=== PATIENT | female | born 1930 | race Caucasian/White ===

== ENCOUNTER 2017-08-19 16:00 | Observation (INO) ==
[2017-08-19] MEDS ORDERED: 0.9 % Sodium Chloride 1,000 ML IVC ONE (16:22)
--- NOTE | 2017-08-19 17:08 | Emergency Department Note ---
Disposition Clinical Impression: Confusion Cellulitis Qualifiers: Site of cellulitis: extremity Site of cellulitis of extremity: lower extremity Laterality: right Qualified Code(s): L03.115 - Cellulitis of right lower limb UTI (urinary tract infection) Qualifiers: Urinary tract infection type: site unspecified Hematuria presence: without hematuria Qualified Code(s): N39.0 - Urinary tract infection, site not specified Disposition: Admitted As Inpatient Condition: Good General Adult HPI - General Chief complaint: ED Altered Mental Status Stated complaint: Altered Source: EMS Limitations: altered mental status Nursing Notes Reviewed: Yes Vital Signs Reviewed: Yes - History of Present Illness HPI Narrative: Patient presents for evaluation from [facility]. Patient was started on antibiotics yesterday for cellulitis. Today the patient had an episode where she looked really pale and was staring off into space. Patient had reported low blood pressure prior to arrival. The patient has been more weak and fatigued than previous. She states that she has had some mild lower abdominal discomfort. She has a red and erythematous right lower extremity from the foot to the mid huitron. She denies chest pain or shortness of breath. Denies fever. Pain Scale: 0 - Related Data Allergies Allergy/AdvReac Type Severity Reaction Status Date / Time Sulfa (Sulfonamide Allergy Hives Verified 08/19/17 16:20 Antibiotics) Review of Systems: CONSTITUTIONAL: No weight loss, fever, chills, weakness or fatigue. HEENT: Eyes: No visual changes. Ears, Nose, Throat: No hearing loss, difficulty talking or unable to swallow. SKIN: cellulitis CARDIOVASCULAR: No chest pain, chest pressure or chest discomfort. No palpitations or edema. RESPIRATORY: No shortness of breath, cough or sputum. GASTROINTESTINAL: Lower abdominal pain No nausea or vomiting.. GENITOURINARY: No burning on urination or hematuria. NEUROLOGICAL: No headache, dizziness, syncope, paralysis, ataxia, numbness or tingling in the extremities. No change in bowel or bladder control. MUSCULOSKELETAL: No muscle pain, back pain, joint pain or stiffness. 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 PROCESSING MACHINE HELPER history - Social History Smoking Status: Never smoker Smokeless Tobacco Status: No Alcohol use: Reports: none Drug use: Reports: none Physical Exam General: Confusion and fatigue Head: Normocephalic Atraumatic Eyes: PERRL, EOMI; extropion ENT: Airway patent, no stridor Neck: supple, no meningismus Chest: Lungs clear to auscultation bilateral Cardiac: Regular rate and rhythm, no murmurs, rubs or gallops Abdomen: soft, nontender, nondistended; no guarding, rebound, or tenderness to percussion Musculoskeletal: Calves symmetric, nontender, no palpable cord Skin: No rash, normal skin tone Neuro: Awake and alert. Oriented to person but not place or time. - General Limitations: altered mental status General appearance: alert, in no apparent distress Course Course Narrative: Patient had DVT study at [facility] that was reportedly negative for DVT. Mildly elevated white count. Cellulitis of the right lower extremity. Concern for UTI. Vancomycin and ceftriaxone given. Blood cultures and urine culture pending. - Consultations Consultation #1: Discussed with hospitalist. Patient accepted for admission. Vital Signs Temperature 97.6 F 08/19/17 16:09 Pulse Rate 61 08/19/17 16:09 Respiratory Rate 16 08/19/17 16:09 Blood Pressure 103/59 08/19/17 16:09 O2 Sat by Pulse Oximetry 100 08/19/17 16:09 Temperature 97.6 F 08/19/17 16:09 Pulse Rate 61 08/19/17 16:09 Respiratory Rate 16 08/19/17 16:09 Blood Pressure 103/59 08/19/17 16:09 O2 Sat by Pulse Oximetry 100 08/19/17 16:09 Oxygen Delivery Oxygen Delivery Room Air Medical Decision Making - Medical Records Medical records reviewed: Yes I reviewed the patient's medical records. - Lab Data Lab results reviewed: Yes I reviewed the patient's lab results. Result diagrams: 08/19/17 16:57 08/19/17 16:57 Lab Results 08/19/17 08/19/17 08/19/17 Range/Units 16:57 16:57 16:57 WBC 11.7 H (4.3-11.1) K/mcL RBC 4.17 (3.82-4.97) M/mcL Hgb 14.5 (11.5-15.4) g/dL Hct 40.9 (35.3-44.9) % MCV 98.1 (83.0-100.0) fL MCH 34.8 H (28.0-33.3) pg MCHC 35.5 (31.6-35.5) g/dL RDW 14.7 H (11.5-14.5) % Plt Count 189 (140-400) K/mcL MPV 11.0 (9.4-12.4) fL Immature Gran % 0.6 (0-4) % Seg Neutrophils % 68.3 % Lymphocytes % 21.7 % Monocytes % 8.8 % Eosinophils % 0.3 % Basophils % 0.3 % Neutrophils # 8.0 (1.6-8.9) K/mcL Lymphocytes # 2.5 (0.6-4.6) K/mcL Monocytes # 1.0 (0.0-1.3) K/mcL Eosinophils # 0.0 (0.0-0.6) K/mcL Basophils # 0.0 (0.0-0.2) K/mcL Sodium 141 (136-145) mEq/L Potassium 4.4 (3.5-5.1) mEq/L Chloride 104 (98-107) mEq/L Carbon Dioxide 27 (23-29) mEq/L BUN 33 H (8-23) mg/dL Creatinine 1.79 H (0.60-1.20) mg/dL Est GFR ( Amer) 33 L (> 60) Est GFR (Non-Af Amer) 27 L (> 60) BUN/Creatinine Ratio 18 (6-26) Glucose 142 H (70-105) mg/dL Calculated Osmolality 302 H (280-300) Lactic Acid 2.2 (0.5-2.2) mmol/L Calcium 9.9 (8.6-10.3) mg/dL Total Bilirubin 0.8 (0.3-1.0) mg/dL AST 18 (13-39) Units/L ALT 15 (7-52) Units/L Alkaline Phosphatase 43 (34-104) Units/L Troponin I < 0.03 (< 0.04) ng/mL Serum Total Protein 7.0 (6.4-8.9) g/dL Albumin 3.8 (3.5-5.7) g/dL Globulin 3.2 (2.4-3.5) g/dL Albumin/Globulin Ratio 1.2 (1.1-2.2) Urine Color (Yellow) Urine Clarity (Clear) Urine pH (5.0-8.0) pH Units Ur Specific [place] (1.010-1.025) Urine Protein (Neg-Trace) mg/dL Urine Glucose (UA) (Normal) mg/dL Urine Ketones (Negative) mg/dL Urine Blood (Negative) Urine Nitrite (Negative) Urine Bilirubin (Negative) Urine Urobilinogen (Normal) mg/dL Ur Leukocyte Esterase (Negative) Urine Microscopic RBC (0-3) per hpf Urine Microscopic WBC (0-3) per hpf Ur Squamous Epith Cells (None-Few) per lpf Urine Bacteria (None-Few) per hpf Hyaline Casts (None-Few) per lpf Ur Culture Indicated? (NO) 08/19/17 Range/Units 17:40 WBC (4.3-11.1) K/mcL RBC (3.82-4.97) M/mcL Hgb (11.5-15.4) g/dL Hct (35.3-44.9) % MCV (83.0-100.0) fL MCH (28.0-33.3) pg MCHC (31.6-35.5) g/dL RDW (11.5-14.5) % Plt Count (140-400) K/mcL MPV (9.4-12.4) fL Immature Gran % (0-4) % Seg Neutrophils % % Lymphocytes % % Monocytes % % Eosinophils % % Basophils % % Neutrophils # (1.6-8.9) K/mcL Lymphocytes # (0.6-4.6) K/mcL Monocytes # (0.0-1.3) K/mcL Eosinophils # (0.0-0.6) K/mcL Basophils # (0.0-0.2) K/mcL Sodium (136-145) mEq/L Potassium (3.5-5.1) mEq/L Chloride (98-107) mEq/L Carbon Dioxide (23-29) mEq/L BUN (8-23) mg/dL Creatinine (0.60-1.20) mg/dL Est GFR ( Amer) (> 60) Est GFR (Non-Af Amer) (> 60) BUN/Creatinine Ratio (6-26) Glucose (70-105) mg/dL Calculated Osmolality (280-300) Lactic Acid (0.5-2.2) mmol/L Calcium (8.6-10.3) mg/dL Total Bilirubin (0.3-1.0) mg/dL AST (13-39) Units/L ALT (7-52) Units/L Alkaline Phosphatase (34-104) Units/L Troponin I (< 0.04) ng/mL Serum Total Protein (6.4-8.9) g/dL Albumin (3.5-5.7) g/dL Globulin (2.4-3.5) g/dL Albumin/Globulin Ratio (1.1-2.2) Urine Color Yellow (Yellow) Urine Clarity Turbid A (Clear) Urine pH 6.0 (5.0-8.0) pH Units Ur Specific [place] 1.012 (1.010-1.025) Urine Protein Trace (Neg-Trace) mg/dL Urine Glucose (UA) Normal (Normal) mg/dL Urine Ketones Negative (Negative) mg/dL Urine Blood Small H (Negative) Urine Nitrite Negative (Negative) Urine Bilirubin Negative (Negative) Urine Urobilinogen Normal (Normal) mg/dL Ur Leukocyte Esterase Large H (Negative) Urine Microscopic RBC 3-5 H (0-3) per hpf Urine Microscopic WBC TNTC H (0-3) per hpf Ur Squamous Epith Cells Many H (None-Few) per lpf Urine Bacteria Many H (None-Few) per hpf Hyaline Casts None Seen (None-Few) per lpf Ur Culture Indicated? NO. A (NO) - Radiology Data Radiology results reviewed: Yes I reviewed the patient's radiology results. - EKG Data EKG #1 EKG attestation: Yes I reviewed and interpreted this EKG. EKG results narrative: EKG shows atrial fibrillation with ventricular rate of 63. QRS 117. QTC 440.
[2017-08-19 17:10] LABS: Basophils % 0.3 %; Eosinophils % 0.3 %; Hematocrit 40.9 % (35.3-44.9); Hemoglobin 14.5 g/dL (11.5-15.4); Immature Granulocytes % 0.6 % (0-4); Lymphocytes # 2.5 K/mcL (0.6-4.6); Lymphocytes % 21.7 %; Mean Corpuscular HGB Conc 35.5 g/dL (31.6-35.5); Mean Corpuscular Hemoglobin 34.8 pg (28.0-33.3); Mean Corpuscular Volume 98.1 fL (83.0-100.0); Monocytes % 8.8 %; Platelet Count 189 K/mcL (140-400); Red Blood Count 4.17 M/mcL (3.82-4.97); Red Cell Distribution Width 14.7 % (11.5-14.5); Segmented Neutrophils % 68.3 %
[2017-08-19 17:36] LABS: Troponin I < 0.03 ng/mL (< 0.04)
--- NOTE | 2017-08-19 17:36 | Emergency Department Note ---
START Narrative - START START: I examined this patient and my medical decision-making was reviewed with the Resident Physician. I agree with the documented findings, disposition and treatment plan as described except to the extent set forth below. 87-year-old female presenting to the emergency room for into status. Patient really was not acting herself at the [facility]. She was recently diagnosed with cellulitis the right lower extremity and was started on antibiotics for that. The right lower extremity is red and swollen. She had a Doppler done of the right lower extremity today as an outpatient at the nursing facility that was negative for DVT. We will check to make sure there is no other infectious causes of this at this time other than the obvious cellulitis of the right lower extremity. She seemingly stable. She is at her baseline at this time. She demonstrates no focal motor or sensory deficits.
[2017-08-19 17:37] LABS: Alanine Aminotransferase 15 Units/L (7-52); Albumin 3.8 g/dL (3.5-5.7); Albumin/Globulin Ratio 1.2 (1.1-2.2); Alkaline Phosphatase 43 Units/L (34-104); Aspartate Amino Transferase 18 Units/L (13-39); BUN/Creatinine Ratio 18 (6-26); Bilirubin,Total 0.8 mg/dL (0.3-1.0); Blood Urea Nitrogen 33 mg/dL (8-23); Calcium 9.9 mg/dL (8.6-10.3); Carbon Dioxide 27 mEq/L (23-29); Chloride 104 mEq/L (98-107); Globulin 3.2 g/dL (2.4-3.5); Glucose 142 mg/dL (70-105); Osmolality,Calculated 302 (280-300); Potassium 4.4 mEq/L (3.5-5.1); Sodium 141 mEq/L (136-145); eGFR For African Americans 33 (> 60); eGFR For Non-African Americans 27 (> 60)
[2017-08-19 17:51] LABS: Bilirubin,Urine Negative (Negative); Blood,Urine Small (Negative); Clarity,Urine Turbid (Clear); Color,Urine Yellow (Yellow); Glucose,Urine (UA) Normal (Normal); Ketones,Urine Negative (Negative); Leukocyte Esterase,Urine Large (Negative); Nitrite,Urine Negative (Negative); Protein,Urine Trace mg/dL (Neg-Trace); Specific Gravity,Urine 1.012 (1.010-1.025); Urobilinogen,Urine Normal (Normal)
[2017-08-19 17:53] LABS: Bacteria,Urine Many per hpf (None-Few); Hyaline Casts,Urine None Seen per lpf (None-Few); Squamous Epithelial Cell,Urine Many per lpf (None-Few); WBC,Urine TNTC per hpf (0-3)
[2017-08-19] MEDS ORDERED: cefTRIAXone 1,000 MG in Water for inj. (sterile) 20 ML 10 ML IVP ONE (18:01)
--- NOTE | 2017-08-19 20:37 | Internal Med History&Physical ---
<Drake Thomas - Last Filed: 08/20/17 05:08> Date of Encounter: 08/20/17 Time of Encounter: 20:26 Internal Medicine - H&P: HPI Chief complaint: cellulitis Admitted From: Long-term Nursing Facility Plans for Post Hospital Care: Transfer Manager Cardiac Cath Care History of present illness: Ms. Silva is a 87 year old female w/ pmh of poorly controlled DM, afib, cva, dementia, HLD, HTN, CKD4, frequent UTI's presents from [facility] for right leg cellulitis. Patient is poor historian, and history was obtained from son bedside. Patient normally gets cellulitis in her left leg, but this time it was in her right leg. Son believes an ulcer started on the medial side of 1st metatarsal a few days ago and has now since spread to mid huitron. The pain has been in significant pain and warmth to touch, and has progressed. Patient was started on abx yesterday at [facility] for cellulitis , and today she was noted to pale and starring off in space. According to son this is a little worse than baseline for patient but not far off. Son also reports that patient has had "low blood pressures" and "low heart rate", and one episode of "vomiting up white foam". Denies fever, sob, chest pain. Patient also was noted to have UTI on U/A in the ED. Patient frequently gets UTI's. Patient is not on diabetic diet at long-term and blood sugars are poorly controlled. Past Med Surg Social Fam HX - Past Medical History Medical history: atrial fibrillation, CVA, dementia, diabetes, hyperlipidemia, hypertension, renal disease, other Psychiatric history: no psych history - Past Surgical History Surgical History: no surgical history, cholecystectomy, hysterectomy - Social History Smoking Status: Never smoker Smokeless Tobacco Status: No Alcohol use: none Drug use: none - Family History Brother Living Status: Internal Medicine - H&P: Meds Apixaban [Eliquis] 2.5 mg PO BID 08/19/17 [History] Ascorbic Acid [Vitamin C with Madelyn Hips] 500 mg PO DAILY 08/19/17 [History] Aspirin [Lo-Dose Aspirin EC] 81 mg PO DAILY 08/19/17 [History] Atenolol [Tenormin] 50 mg PO DAILY 08/19/17 [History] Doxycycline Monohydrate [Okebo] 100 mg PO DAILY 08/19/17 [History] Furosemide [Lasix] 40 mg PO BID 08/19/17 [History] GlipiZIDE [Glipizide Xl] 5 mg PO DAILY 08/19/17 [History] Insulin ASPART [Novolog Flexpen] 7 unit SQ 0800 08/19/17 [History] Insulin ASPART [Novolog Flexpen] 12 unit SQ 1700 08/19/17 [History] Insulin ASPART [Novolog Flexpen] 15 unit SQ 1200 08/19/17 [History] Insulin DETEMIR [Levemir Flextouch] 25 unit SQ 2000 08/19/17 [History] Lactobacillus Acidophilus [Acidophilus Lactobacillus] 1 cap PO BID 08/19/17 [ History] Memantine HCl 10 mg PO BID 08/19/17 [History] Multivit-Min/FA/Lycopen/Lutein [A Thru Z Select Multivit Tab] 1 tab PO DAILY [History] Oxycodone HCl/Acetaminophen [Percocet 5-325 mg Tablet] 0.5 tab PO BID 08/19/17 [ History] Polyethylene Glycol 3350 [MiraLAX Powder Bulk 17.9 Oz] 1 scoop PO DAILY [History] Potassium Chloride [Klor-Con 10] 10 meq PO DAILY 08/19/17 [History] Sennosides [Senna] 17.2 mg PO BID 08/19/17 [History] 3 Allergy/AdvReac Type Severity Reaction Status Date / Time Sulfa (Sulfonamide Allergy Hives Verified 08/19/17 16:20 Antibiotics) ROS unobtainable: due to mental status, other (history gathered from son. Patient is nonverbal but appropriately nodes to questions "yes" and "no") All Systems PM: A 10-system review of systems was performed and is negative for pertinent findings except as documented above in the HPI. - Constitutional Constitutional: lethargy, weakness, no chills, no excessive sweating, no fever(s ), no night sweats - EENT Eyes: dry eye, no change in vision, no discharge, no pain, no photophobia Ears: no ear discharge, no ear pain, no tinnitus Nose, mouth and throat: dry mouth, no dysphagia, no nasal discharge, no neck pain, no sore throat - Cardiovascular Cardiovascular ROS IM: no chest pain, no diaphoresis, no dyspnea, no lightheadedness, no palpitations, no syncope - Respiratory Respiratory: no cough, no dyspnea, no wheezing, no excessive phlegm production - Gastrointestinal Gastrointestinal: no abdominal pain, no diarrhea, no hematemesis, no hematochezia, no melena, no nausea, no vomiting - Genitourinary Genitourinary: no change in urinary stream, no dysuria, no flank pain, no hematuria - Musculoskeletal Musculoskeletal ROS IM: no numbness, no tingling - Integumentary Integumentary IM: no rash, no unusual bruising - Neurological Neurological ROS: no confusion, no convulsions, no focal weakness, no numbness, no tingling, no tremor(s) - Hematologic/Lymphatic Hematologic/Lymphatic: no easy bruising - Constitutional Vitals: Temp Pulse Resp BP Pulse Ox 97.6 F 67 16 118/63 96 08/19/17 16:09 08/19/17 18:50 08/19/17 19:06 08/19/17 19:06 08/19/17 18:50 General appearance: Present: A&O X 0, cooperative, answers questions appropriately - Head Head exam: Present: atraumatic, normocephalic - Eye Eye exam: Present: PERRL, conjuntiva pink, sclera anicteric Pupils: Present: PERRL - Neck Neck exam general surgery: Present: supple, trachea midline. Absent: lymphadenopathy - Respiratory Respiratory exam: Present: decreased breath sounds. Absent: accessory muscle use, rales, rhonchi, wheezes - Cardiovascular Cardiovascular exam: Present: RRR. Absent: diastolic murmur, gallop, JVD, rubs , systolic murmur - GI/Abdominal GI/Abdominal exam: Present: normal bowel sounds, soft, no peritoneal signs. Absent: distended, firm, guarding, hernia, hepatomegaly, rebound, rigid, splenomegaly, tenderness - Extremities Exam Extremities exam: Present: pedal edema (bilaterally R>L), warm, radial pulses palpable and symmetrical. Absent: cyanotic - Expanded Lower Extremities Exam Lower Leg exam: Present: erythema (R), laceration (1 cm eschar on R anterior medial 1st metatarsal), swelling (R), tenderness. Absent: crepitus, deformity, dislocation, ecchymosis, palpable cord Foot/Toe exam: Present: erythema, puncture wound (1 cm eschar on R anterior medial 1st metatarsal), swelling, tenderness. Absent: crepitus, deformity, dislocation - Neurological Exam Neurological exam: Present: alert, CN II-XII intact, no focal deficits. Absent : oriented X3, pronater drift, facial droop, speech deficit - Skin Skin exam: Present: dry, intact Internal Med - H&P Results - Labs CBC & Chem 7: 08/20/17 03:25 08/20/17 03:25 - Assessment and plan (1) Cellulitis Current Visit: Yes Status: Acute Assessment and plan: R lower leg mild to moderate cellulitis w/ 1 cm exchar on medial right metatarsal. erythema is not well demarcated. Secondary to poorly controlled diabetes. Patient has mild leukocytosis on admission and vitally stable since admission but patient is high risk. - serial lower leg exam - follow WBC, and vitals - continue ceftriaxone + Vancomycin - blood cx pending Qualifiers: Site of cellulitis: extremity Site of cellulitis of extremity: lower extremity Laterality: right Qualified Code(s): L03.115 - Cellulitis of right lower limb (2) UTI (urinary tract infection) Current Visit: Yes Status: Acute Assessment and plan: Patient has frequent recurrent UTI's most likely secondary to mental condition and poorly controlled diabetes. Patient's previous UTI were positive for e. coli, klebsiella, VRE, E. Coli, proteus, yeast. UA in ED came back positive for leuks but negative for nitrite. Negative nitrites is suggestive that infection is not e.coli, klebsiell, pseudomonas or enterobacter but cannot rule these out. Will treat patient empirically until Cx return. Patient has elevated leuks but other vital signs are WNL. Patient is high risk, will have low threshold to escalating antibiotics. - place patient on contact precautions due to previous VRE infection - continue ceftriaxone - continue IVF - vital monitoring - cx pending Qualifiers: Urinary tract infection type: acute cystitis Hematuria presence: without hematuria Qualified Code(s): N30.00 - Acute cystitis without hematuria (3) Atrial fibrillation Current Visit: Yes Status: Chronic Assessment and plan: currently controlled. continue home Rx: atenolol, ASA, eliquis Qualifiers: Qualified Code(s): I48.91 - Unspecified atrial fibrillation (4) CKD (chronic kidney disease) Current Visit: Yes Status: Acute Assessment and plan: Patient is CKD 3b-4. Cr on admission is 1.79, baseline is 1.6. Will continue to follow. - avoid nephrotoxins Qualifiers: Chronic kidney disease stage: stage 3 (moderate) Qualified Code(s): N18.3 - Chronic kidney disease, stage 3 (moderate) (5) Dementia Current Visit: Yes Status: Chronic Assessment and plan: long standing dementia w/ CVA history. Patient is close to baseline. continue home rx Qualifiers: Qualified Code(s): F03.90 - Unspecified dementia without behavioral disturbance (6) Diabetes mellitus Current Visit: Yes Status: Chronic Assessment and plan: poorly controlled DM. Patient does not have diabetic diet given at [facility]. Recommend diabetic diet on discharge. Most likely the underlying cause for frequent UTI's and cellulitis - hold home Rx - low SSI Qualifiers: Qualified Code(s): E11.9 - Type 2 diabetes mellitus without complications; Z79.4 - residential (current) use of insulin (7) History of stroke with current residual effects Current Visit: Yes Status: Chronic Assessment and plan: most likely at baseline (8) Hyperlipidemia Current Visit: Yes Status: Chronic Assessment and plan: continue home rx Qualifiers: Qualified Code(s): E78.5 - Hyperlipidemia, unspecified (9) Hypertension Current Visit: Yes Status: Chronic Assessment and plan: controlled, continue home rx Qualifiers: Qualified Code(s): I10 - Essential (primary) hypertension (10) Goals of care, counseling/discussion Current Visit: Yes Status: Acute Assessment and plan: discussed goals of care with family. Son, Hardy Hoyt [phone], is power of workers compensation attorney. Patient code status is DNR/DNI/CCA - Time Spent With Patient Total time spent is greater than 50% in coordination of care (as documented) at patient's floor/unit and/or counseling patient: <Tonya Warren - Last Filed: 08/20/17 05:37> Date of Encounter: 08/20/17 Internal Medicine - H&P: HPI History of present illness: Ms. Silva is a 87 year old female All Systems PM: A 10-system review of systems was performed and is negative for pertinent findings except as documented above in the HPI. - Constitutional Vitals: Temp Pulse Resp BP Pulse Ox 98.9 F 82 16 128/63 96 08/20/17 03:37 08/20/17 03:37 08/20/17 03:37 08/20/17 03:37 08/20/17 03:37 Internal Med - H&P Results - Labs CBC & Chem 7: 08/20/17 03:25 08/20/17 03:25 Labs: Short CBC 08/20/17 Range/Units 03:25 WBC 8.0 (4.3-11.1) K/mcL Hgb 12.0 D (11.5-15.4) g/dL Hct 34.0 L (35.3-44.9) % Plt Count 164 (140-400) K/mcL Neutrophils # 4.6 (1.6-8.9) K/mcL BMP 08/20/17 03:25 Sodium 143 Potassium 3.8 Chloride 109 H Carbon Dioxide 23 BUN 30 H Creatinine 1.53 H Glucose 125 H Calcium 8.9 Cardiac Enzymes 08/19/17 08/20/17 Range/Units 21:40 03:25 Troponin I < 0.03 < 0.03 (< 0.04) ng/mL Liver Function 08/20/17 Range/Units 03:25 Total Bilirubin 0.7 (0.3-1.0) mg/dL AST 14 (13-39) Units/L ALT 11 (7-52) Units/L Alkaline Phosphatase 34 (34-104) Units/L Albumin 3.1 L (3.5-5.7) g/dL - Impressions ITS Impressions Foot X-Ray 08/19/17 20:59 IMPRESSION: Soft-tissue swelling with no acute or focal bony abnormality. D/ / Emily Hernández Cha, MD / Emily Hernández Cha, MD Interpreting Provider: Emily Hernández Cha, MD - Attending Attestation Patient independently seen and examined at bedside. Resting in bed. Noted to have severe erythema and swelling of right foot and distal right lower extremity UA concerning for UTI will continue Ceftriaxone and Vancomycin f/u blood and urine cultures Advance directives discussed with patient and family, decision to change code status to DNR/DNI as per family/patient's request. Case discussed with Resident physician Dr. Drake Thomas, I agree with his documented findings, assessment, and plan except as listed above. - Assessment and plan (1) UTI (urinary tract infection) Current Visit: Yes Status: Acute Qualifiers: Urinary tract infection type: acute cystitis Hematuria presence: without hematuria Qualified Code(s): N30.00 - Acute cystitis without hematuria (2) Atrial fibrillation Current Visit: Yes Status: Chronic Qualifiers: Qualified Code(s): I48.91 - Unspecified atrial fibrillation (3) History of stroke with current residual effects Current Visit: Yes Status: Chronic (4) Diabetes mellitus Current Visit: Yes Status: Chronic Qualifiers: Qualified Code(s): E11.9 - Type 2 diabetes mellitus without complications; Z79.4 - intermodal customer service (current) use of insulin (5) Hyperlipidemia Current Visit: Yes Status: Chronic Qualifiers: Qualified Code(s): E78.5 - Hyperlipidemia, unspecified (6) Hypertension Current Visit: Yes Status: Chronic Qualifiers: Qualified Code(s): I10 - Essential (primary) hypertension (7) Dementia Current Visit: Yes Status: Chronic Qualifiers: Qualified Code(s): F03.90 - Unspecified dementia without behavioral disturbance (8) CKD (chronic kidney disease) Current Visit: Yes Status: Acute Qualifiers: Chronic kidney disease stage: stage 3 (moderate) Qualified Code(s): N18.3 - Chronic kidney disease, stage 3 (moderate) (9) Cellulitis Current Visit: Yes Status: Acute Qualifiers: Site of cellulitis: extremity Site of cellulitis of extremity: lower extremity Laterality: right Qualified Code(s): L03.115 - Cellulitis of right lower limb (10) Goals of care, counseling/discussion Current Visit: Yes Status: Acute - Time Spent With Patient Total time spent is greater than 50% in coordination of care (as documented) at patient's floor/unit and/or counseling patient:
[2017-08-19] MEDS ORDERED: Dextrose Gel 15 GM/37.5 ML TUBE PO PRN ×2 (21:03)
[2017-08-19] MEDS ORDERED: D5% in Water 1,000 ML IVC PRN (21:03)
[2017-08-19] MEDS ORDERED: *HR* Dextrose 50 % in Water (Syg) 50 ML SYRINGE IVP PRN (21:03)
[2017-08-19] MEDS ORDERED: Naloxone 0.4 MG/ML INJ IVP PRN (21:20)
[2017-08-19] MEDS: 0.9 % Sodium Chloride 1,000 ML IVC SCH (23:45)
[2017-08-20 03:45] LABS: Basophils % 0.4 %; Eosinophils # 0.2 K/mcL (0.0-0.6); Eosinophils % 1.9 %; Immature Granulocytes % 0.5 % (0-4); Lymphocytes # 2.4 K/mcL (0.6-4.6); Lymphocytes % 29.9 %; Mean Corpuscular HGB Conc 35.3 g/dL (31.6-35.5); Mean Corpuscular Hemoglobin 34.3 pg (28.0-33.3); Mean Corpuscular Volume 97.1 fL (83.0-100.0); Monocytes # 0.8 K/mcL (0.0-1.3); Monocytes % 10.4 %; Neutrophils # 4.6 K/mcL (1.6-8.9); Platelet Count 164 K/mcL (140-400); Red Cell Distribution Width 14.6 % (11.5-14.5); Segmented Neutrophils % 56.9 %
[2017-08-20 04:01] LABS: Albumin 3.1 g/dL (3.5-5.7); Albumin/Globulin Ratio 1.1 (1.1-2.2); Bilirubin,Total 0.7 mg/dL (0.3-1.0); Calcium 8.9 mg/dL (8.6-10.3); Globulin 2.7 g/dL (2.4-3.5); Potassium 3.8 mEq/L (3.5-5.1); Total Protein 5.8 g/dL (6.4-8.9)
[2017-08-20] MEDS: Insulin LISPRO 300 UNITS/3 ML VIAL SQ SCH ×4 (08:20→20:54)
[2017-08-20] MEDS: Ascorbic Acid 500 MG TABLET PO SCH (09:40)
[2017-08-20] MEDS: Multivit/Ca/Min/Fe/FA 1 TAB TABLET PO SCH (09:40)
[2017-08-20] MEDS: Aspirin Enteric Coated 81 MG Tablet PO SCH (09:40)
[2017-08-20] MEDS: Apixaban 2.5 MG TABLET PO SCH ×2 (09:40→20:53)
[2017-08-20] MEDS: Lactobacillus 1 EACH CAP.SPRINK PO SCH ×2 (09:40→20:53)
[2017-08-20] MEDS: cefTRIAXone 1,000 MG in Water for inj. (sterile) 20 ML 10 ML IVP SCH (09:41)
[2017-08-20] MEDS: Furosemide 40 MG TABLET PO SCH ×2 (09:41→17:19)
[2017-08-20] MEDS: Sennosides 8.6 MG TABLET PO SCH ×2 (09:41→20:56)
[2017-08-20] MEDS: *HR* OxyCODONE/APAP 5/325 TABLET PO SCH ×2 (09:41→20:56)
[2017-08-20] MEDS: 0.9 % Sodium Chloride 1,000 ML IVC SCH ×2 (09:47→19:40)
--- NOTE | 2017-08-20 15:00 | Internal Med Progress Note ---
Date of Encounter: 08/20/17 Time of Encounter: 14:58 - Assessment and plan (1) Cellulitis Current Visit: Yes Status: Acute Assessment and plan: to right lower extremity and right foot. Recently started on ATB at [facility]. Right foot x-ray with soft tissue swelling, no acute bony abnormality or soft tissue gas. No drainage to culture. Continue IV vancomycin for now. De- escalate as clinically improves. Qualifiers: Site of cellulitis: extremity Site of cellulitis of extremity: lower extremity Laterality: right Qualified Code(s): L03.115 - Cellulitis of right lower limb (2) UTI (urinary tract infection) Current Visit: Yes Status: Acute Assessment and plan: previous UTI were positive for e. coli, klebsiella, VRE, E. Coli, proteus, yeast. Continue IV ceftriaxone. Follow urine culture and narrow accordingly. Qualifiers: Urinary tract infection type: acute cystitis Hematuria presence: without hematuria Qualified Code(s): N30.00 - Acute cystitis without hematuria (3) Atrial fibrillation Current Visit: Yes Status: Chronic Assessment and plan: currently controlled. continue home Rx: atenolol, ASA, eliquis Qualifiers: Qualified Code(s): I48.91 - Unspecified atrial fibrillation (4) History of stroke with current residual effects Current Visit: Yes Status: Chronic Assessment and plan: most likely at baseline (5) Diabetes mellitus Current Visit: Yes Status: Chronic Assessment and plan: poorly controlled DM. Patient does not have diabetic diet given at [facility]. Recommend diabetic diet on discharge. 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 Patient is close to baseline. continue home rx Qualifiers: Qualified Code(s): F03.90 - Unspecified dementia without behavioral disturbance (9) CKD (chronic kidney disease) Current Visit: Yes Status: Acute Assessment and plan: Patient is CKD 3b-4. Cr on admission is 1.79, baseline is 1.6. Avoid nephrotoxic agents as possible. Renal function improved to baseline with IV fluids. Qualifiers: Chronic kidney disease stage: stage 3 (moderate) Qualified Code(s): N18.3 - Chronic kidney disease, stage 3 (moderate) (10) Goals of care, counseling/discussion Current Visit: Yes Status: Acute Assessment and plan: discussed goals of care with family. Son, Hardy Hoyt [phone], is power of trust and estates attorney. Patient code status is DNR/DNI/CCA (11) DVT prophylaxis Current Visit: Yes Status: Acute Assessment and plan: eliquis - Time Spent With Patient Total time spent is greater than 50% in coordination of care (as documented) at patient's floor/unit and/or counseling patient: - Subjective Interval history: Seen and examined at bedside. Patient is new to me, information obtained mostly from chart review and family as patient has dementia and alert to self only. Right details. reports patient resides at [facility] and had a near- syncopal episode after standing up to go to the bathroom yesterday. Her blood pressure and heart rate reportedly low and he requested transfer to the hospital. Alert to self only on exam, denies pain. No chest pain or shortness of breath. - Constitutional Vitals: Temp Pulse Resp BP Pulse Ox 97.6 F 72 16 122/65 97 08/20/17 11:38 08/20/17 11:38 08/20/17 11:38 08/20/17 11:38 08/20/17 11:38 General appearance: Present: cooperative, A&O X 1, pleasant, answers questions appropriately - Head Head exam: Present: atraumatic, normocephalic - Eye Eye exam: Present: PERRL, conjuntiva pink, sclera anicteric Pupils: Present: PERRL - Neck Neck exam general surgery: Present: supple, trachea midline. Absent: lymphadenopathy - Respiratory Respiratory exam: Present: CTAB. Absent: accessory muscle use, rales, rhonchi, wheezes - Cardiovascular Cardiovascular exam: Present: RRR, +S1, +S2. Absent: diastolic murmur, gallop, rubs, systolic murmur - GI/Abdominal GI/Abdominal exam: Present: normal bowel sounds, soft, no peritoneal signs. Absent: distended, tenderness - Extremities Exam Extremities exam: Present: pedal edema, warm, radial pulses palpable and symmetrical. Absent: calf tenderness, cyanotic Additional comments: Right lower foot with erythema and diminished pulses. - Neurological Exam Neurological exam: Present: CN II-XII intact, oriented X3, no focal deficits. Absent: pronater drift, facial droop, speech deficit - Skin Skin exam: Present: dry, intact Internal Medicine: Result - Labs CBC & Chem 7: 08/20/17 03:25 08/20/17 03:25 Labs: Short CBC 08/20/17 Range/Units 03:25 WBC 8.0 (4.3-11.1) K/mcL Hgb 12.0 D (11.5-15.4) g/dL Hct 34.0 L (35.3-44.9) % Plt Count 164 (140-400) K/mcL Neutrophils # 4.6 (1.6-8.9) K/mcL BMP 08/20/17 03:25 Sodium 143 Potassium 3.8 Chloride 109 H Carbon Dioxide 23 BUN 30 H Creatinine 1.53 H Glucose 125 H Calcium 8.9 Cardiac Enzymes 08/19/17 08/20/17 Range/Units 21:40 03:25 Troponin I < 0.03 < 0.03 (< 0.04) ng/mL Liver Function 08/20/17 Range/Units 03:25 Total Bilirubin 0.7 (0.3-1.0) mg/dL AST 14 (13-39) Units/L ALT 11 (7-52) Units/L Alkaline Phosphatase 34 (34-104) Units/L Albumin 3.1 L (3.5-5.7) g/dL - Impressions Impressions Foot X-Ray 08/19/17 20:59 IMPRESSION: Soft-tissue swelling with no acute or focal bony abnormality. D/ / Emily Hernández Cha, MD / Emily Hernández Cha, MD Interpreting Provider: Emily Hernández Cha, MD - VTE Reasons for not Prescribing Prophylaxis: Not indicated-Anticoagulated or INR therapeutic Consult Discharge Plan - Plan Referrals: Kel Tejeda [Primary Care Provider] -
[2017-08-20] MEDS: Ciprofloxacin OPTH Soln 2.5 ML BOTTLE LEFT EYE SCH ×3 (17:18→23:55)
[2017-08-20] MEDS: Ciprofloxacin OPTH Soln 2.5 ML BOTTLE RIGHT EYE SCH ×3 (17:19→23:55)
--- NOTE | 2017-08-20 23:24 | Electrocardiograph Report ---
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
[2017-08-21] MEDS: Ciprofloxacin OPTH Soln 2.5 ML BOTTLE RIGHT EYE SCH ×6 (04:00→23:55)
[2017-08-21] MEDS: Ciprofloxacin OPTH Soln 2.5 ML BOTTLE LEFT EYE SCH ×6 (04:00→23:54)
[2017-08-21 04:42] LABS: Hematocrit 33.3 % (35.3-44.9); Hemoglobin 11.4 g/dL (11.5-15.4); Mean Corpuscular HGB Conc 34.2 g/dL (31.6-35.5); Mean Corpuscular Hemoglobin 33.3 pg (28.0-33.3); Mean Corpuscular Volume 97.4 fL (83.0-100.0); Mean Platelet Volume 11.3 fL (9.4-12.4); Platelet Count 160 K/mcL (140-400); Red Blood Count 3.42 M/mcL (3.82-4.97); Red Cell Distribution Width 14.4 % (11.5-14.5)
[2017-08-21 05:02] LABS: Calcium 8.8 mg/dL (8.6-10.3); Potassium 3.5 mEq/L (3.5-5.1)
[2017-08-21] MEDS: cefTRIAXone 1,000 MG in Water for inj. (sterile) 20 ML 10 ML IVP SCH (08:47)
[2017-08-21] MEDS: Ascorbic Acid 500 MG TABLET PO SCH (08:48)
[2017-08-21] MEDS: Insulin LISPRO 300 UNITS/3 ML VIAL SQ SCH ×4 (08:48→21:53)
[2017-08-21] MEDS: Apixaban 2.5 MG TABLET PO SCH ×2 (08:48→21:50)
[2017-08-21] MEDS: *HR* OxyCODONE/APAP 5/325 TABLET PO SCH ×2 (08:49→21:50)
[2017-08-21] MEDS: Multivit/Ca/Min/Fe/FA 1 TAB TABLET PO SCH (08:49)
[2017-08-21] MEDS: Lactobacillus 1 EACH CAP.SPRINK PO SCH ×2 (08:49→21:50)
[2017-08-21] MEDS: Aspirin Enteric Coated 81 MG Tablet PO SCH (08:49)
[2017-08-21] MEDS: Furosemide 40 MG TABLET PO SCH ×2 (08:49→17:30)
[2017-08-21] MEDS: Sennosides 8.6 MG TABLET PO SCH ×2 (08:50→21:52)
[2017-08-21] MEDS: 0.9 % Sodium Chloride 1,000 ML IVC SCH ×2 (09:09→19:12)
--- NOTE | 2017-08-21 14:38 | Internal Med Progress Note ---
Date of Encounter: 08/21/17 Time of Encounter: 14:33 - Assessment and plan (1) Cellulitis Current Visit: Yes Status: Acute Assessment and plan: to right lower extremity and right foot. Recently started on ATB at [facility]. Right foot x-ray with soft tissue swelling, no acute bony abnormality or soft tissue gas. No drainage to culture. Continue IV vancomycin for now. De- escalate as clinically improves. Qualifiers: Site of cellulitis: extremity Site of cellulitis of extremity: lower extremity Laterality: right Qualified Code(s): L03.115 - Cellulitis of right lower limb (2) UTI (urinary tract infection) Current Visit: Yes Status: Acute Assessment and plan: previous UTI were positive for e. coli, klebsiella, VRE, E. Coli, proteus, yeast. Continue IV ceftriaxone. Follow urine culture and narrow accordingly. Qualifiers: Urinary tract infection type: acute cystitis Hematuria presence: without hematuria Qualified Code(s): N30.00 - Acute cystitis without hematuria (3) Atrial fibrillation Current Visit: Yes Status: Chronic Assessment and plan: currently controlled. continue home Rx: atenolol, ASA, eliquis Qualifiers: Qualified Code(s): I48.91 - Unspecified atrial fibrillation (4) History of stroke with current residual effects Current Visit: Yes Status: Chronic Assessment and plan: most likely at baseline (5) Diabetes mellitus Current Visit: Yes Status: Chronic Assessment and plan: poorly controlled DM. Patient does not have diabetic diet given at [facility]. Recommend diabetic diet on discharge. 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 Patient is close to baseline. continue home rx Qualifiers: Qualified Code(s): F03.90 - Unspecified dementia without behavioral disturbance (9) CKD (chronic kidney disease) Current Visit: Yes Status: Acute Assessment and plan: Patient is CKD 3b-4. Cr on admission is 1.79, baseline is 1.6. Avoid nephrotoxic agents as possible. Renal function improved to baseline with IV fluids. Qualifiers: Chronic kidney disease stage: stage 3 (moderate) Qualified Code(s): N18.3 - Chronic kidney disease, stage 3 (moderate) (10) Goals of care, counseling/discussion Current Visit: Yes Status: Acute Assessment and plan: discussed goals of care with family. Son, Hardy Hoyt [phone], is power of county attorney. Patient code status is DNR/DNI/CCA (11) Conjunctivitis Current Visit: Yes Status: Acute Assessment and plan: suspected; both eyes with erythema and clear drainage, and matted shut. Cont ATB eye gtts Qualifiers: Conjunctivitis type: acute Acute conjunctivitis type: viral Laterality: bilateral Qualified Code(s): B30.9 - Viral conjunctivitis, unspecified (12) DVT prophylaxis Current Visit: Yes Status: Acute Assessment and plan: eliquis - Time Spent With Patient Total time spent is greater than 50% in coordination of care (as documented) at patient's floor/unit and/or counseling patient: - Subjective Interval history: Seen and examined at bedside. She is alert to self only so unable to provide details. Says she is not doing so well today but does not elaborate. She does complain of pain to right foot when it's has moved. - Constitutional Vitals: Temp Pulse Resp BP Pulse Ox 97.9 F 77 16 147/75 100 08/21/17 07:38 08/21/17 07:38 08/21/17 07:38 08/21/17 07:38 08/21/17 07:38 General appearance: Present: cooperative, A&O X 1, pleasant, answers questions appropriately - Head Head exam: Present: atraumatic, normocephalic - Eye Eye exam: Present: PERRL, conjuntiva pink, sclera anicteric Pupils: Present: PERRL - Neck Neck exam general surgery: Present: supple, trachea midline. Absent: lymphadenopathy - Respiratory Respiratory exam: Present: CTAB. Absent: accessory muscle use, rales, rhonchi, wheezes - Cardiovascular Cardiovascular exam: Present: RRR, +S1, +S2. Absent: diastolic murmur, gallop, rubs, systolic murmur - GI/Abdominal GI/Abdominal exam: Present: normal bowel sounds, soft, no peritoneal signs. Absent: distended, tenderness - Extremities Exam Extremities exam: Present: pedal edema (Right foot with significant erythema and swelling. Diminished pulses), warm, radial pulses palpable and symmetrical. Absent: calf tenderness, cyanotic - Neurological Exam Neurological exam: Present: CN II-XII intact, no focal deficits. Absent: pronater drift, facial droop, speech deficit - Skin Skin exam: Present: dry, intact Internal Medicine: Result - Labs CBC & Chem 7: 08/21/17 03:21 08/21/17 03:21 Labs: Short CBC 08/21/17 Range/Units 03:21 WBC 7.4 (4.3-11.1) K/mcL Hgb 11.4 L (11.5-15.4) g/dL Hct 33.3 L (35.3-44.9) % Plt Count 160 (140-400) K/mcL [facility] 08/21/17 03:21 Sodium 140 Potassium 3.5 Chloride 108 H Carbon Dioxide 23 BUN 28 H Creatinine 1.45 H Glucose 175 H Calcium 8.8 - VTE Reasons for not Prescribing Prophylaxis: Not indicated-Anticoagulated or INR therapeutic Consult Discharge Plan - Plan Referrals: Kel Tejeda [Primary Care Provider] -
[2017-08-22] MEDS: Ciprofloxacin OPTH Soln 2.5 ML BOTTLE LEFT EYE SCH ×5 (04:20→21:41)
[2017-08-22] MEDS: Ciprofloxacin OPTH Soln 2.5 ML BOTTLE RIGHT EYE SCH ×5 (04:21→21:42)
[2017-08-22] MEDS: 0.9 % Sodium Chloride 1,000 ML IVC SCH ×2 (07:01→17:05)
[2017-08-22 08:53] LABS: Calcium 8.5 mg/dL (8.6-10.3); Potassium 3.4 mEq/L (3.5-5.1)
[2017-08-22 09:02] LABS: Hematocrit 34.3 % (35.3-44.9); Hemoglobin 12.5 g/dL (11.5-15.4); Mean Corpuscular HGB Conc 36.4 g/dL (31.6-35.5); Mean Corpuscular Hemoglobin 34.4 pg (28.0-33.3); Mean Corpuscular Volume 94.5 fL (83.0-100.0); Mean Platelet Volume 11.5 fL (9.4-12.4); Platelet Count 147 K/mcL (140-400); Red Blood Count 3.63 M/mcL (3.82-4.97); Red Cell Distribution Width 14.1 % (11.5-14.5)
--- NOTE | 2017-08-22 09:15 | Internal Med Progress Note ---
Date of Encounter: 08/22/17 Time of Encounter: 09:13 - Assessment and plan (1) Cellulitis Current Visit: Yes Status: Acute Assessment and plan: to right lower extremity and right foot. Recently started on ATB at [facility]. Right foot x-ray with soft tissue swelling, no acute bony abnormality or soft tissue gas. No drainage to culture. Continue IV vancomycin for now. De- escalate as clinically improves. Improved on 08/30 exam however still with significant erythema and edema. Continue IV vancomycin. Qualifiers: Site of cellulitis: extremity Site of cellulitis of extremity: lower extremity Laterality: right Qualified Code(s): L03.115 - Cellulitis of right lower limb (2) UTI (urinary tract infection) Current Visit: Yes Status: Acute Assessment and plan: UA indicative of UTI. Urine culture with Klebsiella pneumoniae. Sensitive to ceftriaxone. Continue IV ceftriaxone for now. Qualifiers: Urinary tract infection type: acute cystitis Hematuria presence: without hematuria Qualified Code(s): N30.00 - Acute cystitis without hematuria (3) Atrial fibrillation Current Visit: Yes Status: Chronic Assessment and plan: currently controlled. continue home Rx: atenolol, ASA, eliquis Qualifiers: Qualified Code(s): I48.91 - Unspecified atrial fibrillation (4) History of stroke with current residual effects Current Visit: Yes Status: Chronic Assessment and plan: most likely at baseline (5) Diabetes mellitus Current Visit: Yes Status: Chronic Assessment and plan: poorly controlled DM. Patient does not have diabetic diet given at [facility]. Recommend diabetic diet on discharge. 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 Patient is close to baseline. continue home rx Qualifiers: Qualified Code(s): F03.90 - Unspecified dementia without behavioral disturbance (9) CKD (chronic kidney disease) Current Visit: Yes Status: Acute Assessment and plan: Patient is CKD 3b-4. Cr on admission is 1.79, baseline is 1.6. Avoid nephrotoxic agents as possible. Renal function improved to baseline with IV fluids. Qualifiers: Chronic kidney disease stage: stage 3 (moderate) Qualified Code(s): N18.3 - Chronic kidney disease, stage 3 (moderate) (10) Goals of care, counseling/discussion Current Visit: Yes Status: Acute Assessment and plan: discussed goals of care with family. Son, Hardy Hoyt [phone], is power of admitted attorneys. Patient code status is DNR/DNI/CCA (11) Conjunctivitis Current Visit: Yes Status: Acute Assessment and plan: suspected; both eyes with erythema and clear drainage, and matted shut. Cont ATB eye gtts Qualifiers: Conjunctivitis type: acute Acute conjunctivitis type: viral Laterality: bilateral Qualified Code(s): B30.9 - Viral conjunctivitis, unspecified (12) DVT prophylaxis Current Visit: Yes Status: Acute Assessment and plan: eliquis - Time Spent With Patient Total time spent is greater than 50% in coordination of care (as documented) at patient's floor/unit and/or counseling patient: - Subjective Interval history: Seen and examined at bedside. No family at bedside for collateral. Patient is alert to self only, does not provide details. Says she feels okay. She has no other complaints. - Constitutional Vitals: Temp Pulse Resp BP Pulse Ox 98.0 F 90 18 165/77 98 08/22/17 08:05 08/22/17 08:05 08/22/17 08:05 08/22/17 08:05 08/22/17 08:05 General appearance: Present: cooperative, A&O X 1, pleasant, answers questions appropriately - Head Head exam: Present: atraumatic, normocephalic - Eye Eye exam: Present: PERRL, conjuntiva pink, sclera anicteric Pupils: Present: PERRL - Neck Neck exam general surgery: Present: supple, trachea midline. Absent: lymphadenopathy - Respiratory Respiratory exam: Present: CTAB. Absent: accessory muscle use, rales, rhonchi, wheezes - Cardiovascular Cardiovascular exam: Present: RRR, +S1, +S2. Absent: diastolic murmur, gallop, rubs, systolic murmur - GI/Abdominal GI/Abdominal exam: Present: normal bowel sounds, soft, no peritoneal signs. Absent: distended, tenderness - Extremities Exam Extremities exam: Present: pedal edema (Right foot with persistent erythema and swelling although improved from yesterday's exam. Pedal pulses diminished but palpable), warm, radial pulses palpable and symmetrical. Absent: calf tenderness, cyanotic - Neurological Exam Neurological exam: Present: CN II-XII intact, no focal deficits. Absent: pronater drift, facial droop, speech deficit - Skin Skin exam: Present: dry, intact Internal Medicine: Result - Labs CBC & Chem 7: 08/22/17 08:24 08/22/17 08:26 Labs: Short CBC 08/22/17 Range/Units 08:24 WBC 7.7 (4.3-11.1) K/mcL Hgb 12.5 (11.5-15.4) g/dL Hct 34.3 L (35.3-44.9) % Plt Count 147 (140-400) K/mcL [facility] 08/22/17 08:26 Sodium 139 Potassium 3.4 L Chloride 108 H Carbon Dioxide 22 L BUN 17 Creatinine 1.18 Glucose 178 H Calcium 8.5 L - VTE Reasons for not Prescribing Prophylaxis: Not indicated-Anticoagulated or INR therapeutic Consult Discharge Plan - Plan Referrals: Kel Tejeda [Primary Care Provider] -
[2017-08-22] MEDS: cefTRIAXone 1,000 MG in Water for inj. (sterile) 20 ML 10 ML IVP SCH (09:19)
[2017-08-22] MEDS: Insulin LISPRO 300 UNITS/3 ML VIAL SQ SCH ×4 (09:19→21:40)
[2017-08-22] MEDS: Sennosides 8.6 MG TABLET PO SCH ×2 (09:20→21:40)
[2017-08-22] MEDS: Aspirin Enteric Coated 81 MG Tablet PO SCH (09:20)
[2017-08-22] MEDS: Furosemide 40 MG TABLET PO SCH ×2 (09:20→17:05)
[2017-08-22] MEDS: Multivit/Ca/Min/Fe/FA 1 TAB TABLET PO SCH (09:20)
[2017-08-22] MEDS: Ascorbic Acid 500 MG TABLET PO SCH (09:20)
[2017-08-22] MEDS: Apixaban 2.5 MG TABLET PO SCH ×2 (09:20→21:40)
[2017-08-22] MEDS: *HR* OxyCODONE/APAP 5/325 TABLET PO SCH ×2 (09:21→21:38)
[2017-08-22] MEDS: Lactobacillus 1 EACH CAP.SPRINK PO SCH ×2 (09:27→21:40)
[2017-08-23] MEDS: Ciprofloxacin OPTH Soln 2.5 ML BOTTLE RIGHT EYE SCH ×7 (00:14→23:43)
[2017-08-23] MEDS: Ciprofloxacin OPTH Soln 2.5 ML BOTTLE LEFT EYE SCH ×7 (00:14→23:43)
[2017-08-23] MEDS: 0.9 % Sodium Chloride 1,000 ML IVC SCH ×2 (03:19→17:32)
[2017-08-23 06:17] LABS: Calcium 8.6 mg/dL (8.6-10.3); Potassium 3.7 mEq/L (3.5-5.1)
[2017-08-23 07:26] LABS: Hematocrit 35.8 % (35.3-44.9); Hemoglobin 12.7 g/dL (11.5-15.4); Mean Corpuscular HGB Conc 35.5 g/dL (31.6-35.5); Mean Corpuscular Volume 95.7 fL (83.0-100.0); Mean Platelet Volume 11.8 fL (9.4-12.4); Platelet Count 155 K/mcL (140-400); Red Blood Count 3.74 M/mcL (3.82-4.97); Red Cell Distribution Width 14.4 % (11.5-14.5)
[2017-08-23] MEDS ORDERED: Isovue-370 500 ML INFUS..BTL IV ONE (10:24)
[2017-08-23] MEDS: Lactobacillus 1 EACH CAP.SPRINK PO SCH ×2 (10:32→21:41)
[2017-08-23] MEDS: Ascorbic Acid 500 MG TABLET PO SCH (10:32)
[2017-08-23] MEDS: Apixaban 2.5 MG TABLET PO SCH ×2 (10:33→21:41)
[2017-08-23] MEDS: Multivit/Ca/Min/Fe/FA 1 TAB TABLET PO SCH (10:33)
[2017-08-23] MEDS: Furosemide 40 MG TABLET PO SCH ×2 (10:33→18:47)
[2017-08-23] MEDS: *HR* OxyCODONE/APAP 5/325 TABLET PO SCH ×2 (10:33→21:41)
[2017-08-23] MEDS: Aspirin Enteric Coated 81 MG Tablet PO SCH (10:33)
[2017-08-23] MEDS: cefTRIAXone 1,000 MG in Water for inj. (sterile) 20 ML 10 ML IVP SCH (10:34)
[2017-08-23] MEDS: Insulin LISPRO 300 UNITS/3 ML VIAL SQ SCH ×4 (10:35→21:42)
[2017-08-23] MEDS: Sennosides 8.6 MG TABLET PO SCH ×2 (10:36→21:40)
--- NOTE | 2017-08-23 13:51 | Internal Med Progress Note ---
Date of Encounter: 08/23/17 Time of Encounter: 13:49 - Assessment and plan (1) Cellulitis Current Visit: Yes Status: Acute Assessment and plan: to right lower extremity and right foot. Recently started [facility]. Right foot x-ray with soft tissue swelling, no acute bony abnormality or soft tissue gas. No drainage to culture. Continue IV vancomycin for now. De- escalate as clinically improves. Improved on 08/30 exam however still with significant erythema and edema. Continue IV vancomycin; consider ID consult if no improvement on 08/24 Qualifiers: Site of cellulitis: extremity Site of cellulitis of extremity: lower extremity Laterality: right Qualified Code(s): L03.115 - Cellulitis of right lower limb (2) UTI (urinary tract infection) Current Visit: Yes Status: Acute Assessment and plan: UA indicative of UTI. Urine culture with Klebsiella pneumoniae. Sensitive to ceftriaxone. Continue IV ceftriaxone for now (day 4). Qualifiers: Urinary tract infection type: acute cystitis Hematuria presence: without hematuria Qualified Code(s): N30.00 - Acute cystitis without hematuria (3) Atrial fibrillation Current Visit: Yes Status: Chronic Assessment and plan: currently controlled. continue home Rx: atenolol, ASA, eliquis Qualifiers: Atrial fibrillation type: chronic Qualified Code(s): I48.2 - Chronic atrial fibrillation (4) History of stroke with current residual effects Current Visit: Yes Status: Chronic Assessment and plan: most likely at baseline (5) Diabetes mellitus Current Visit: Yes Status: Chronic Assessment and plan: per hx. Holding home oral hypoglycemics. SSI. Monitor blood sugar and titrate PRN Qualifiers: Chronic kidney disease stage: stage 3 (moderate) Qualified Code(s): E08.22 - Diabetes mellitus due to underlying condition with diabetic chronic kidney disease; N18.3 - Chronic kidney disease, stage 3 (moderate); Z79.4 - long-term ( current) use of insulin (6) Hyperlipidemia Current Visit: Yes Status: Chronic Assessment and plan: continue home rx Qualifiers: Hyperlipidemia type: pure hypercholesterolemia Qualified Code(s): E78.00 - Pure hypercholesterolemia, unspecified; E78.0 - Pure hypercholesterolemia (7) Hypertension Current Visit: Yes Status: Chronic Assessment and plan: controlled, continue home rx Qualifiers: Hypertension type: essential hypertension Qualified Code(s): I10 - Essential (primary) hypertension (8) Dementia Current Visit: Yes Status: Chronic Assessment and plan: long standing dementia w/ CVA history. Patient is close to baseline. continue home rx Qualifiers: Dementia type: Alzheimer's disease Alzheimer's disease onset: unspecified onset Dementia behavioral disturbance: without behavioral disturbance Qualified Code(s): G30.9 - Alzheimer's disease, unspecified; F02.80 - Dementia in other diseases classified elsewhere without behavioral disturbance (9) CKD (chronic kidney disease) Current Visit: Yes Status: Acute Assessment and plan: Patient is CKD 3b-4. Cr on admission is 1.79, baseline is 1.6. Avoid nephrotoxic agents as possible. Renal function improved to baseline with IV fluids. Qualifiers: Chronic kidney disease stage: stage 3 (moderate) Qualified Code(s): N18.3 - Chronic kidney disease, stage 3 (moderate) (10) Goals of care, counseling/discussion Current Visit: Yes Status: Acute Assessment and plan: discussed goals of care with family. Son, Hardy Hoyt [phone], is power of barrel rifler. Patient code status is DNR/DNI/CCA (11) Conjunctivitis Current Visit: Yes Status: Acute Assessment and plan: suspected; both eyes with erythema and clear drainage, and matted shut. Cont ATB eye gtts Qualifiers: Conjunctivitis type: acute Acute conjunctivitis type: viral Laterality: bilateral Qualified Code(s): B30.9 - Viral conjunctivitis, unspecified (12) DVT prophylaxis Current Visit: Yes Status: Acute Assessment and plan: eliquis - Time Spent With Patient Total time spent is greater than 50% in coordination of care (as documented) at patient's floor/unit and/or counseling patient: - Subjective Interval history: Seen and examined at bedside. Uneventful night. No changes in exam to report. Patient is alert to self only and does not provide details. No family at bedside available for collateral. - Constitutional Vitals: Temp Pulse Resp BP Pulse Ox 97.8 F 75 14 139/63 95 08/23/17 10:59 08/23/17 10:59 08/23/17 10:59 08/23/17 10:59 08/23/17 10:59 General appearance: Present: cooperative, A&O X 1, pleasant, answers questions appropriately - Head Head exam: Present: atraumatic, normocephalic - Eye Eye exam: Present: PERRL, conjuntiva pink, sclera anicteric Pupils: Present: PERRL - Neck Neck exam general surgery: Present: supple, trachea midline. Absent: lymphadenopathy - Respiratory Respiratory exam: Present: CTAB. Absent: accessory muscle use, rales, rhonchi, wheezes - Cardiovascular Cardiovascular exam: Present: RRR, +S1, +S2. Absent: diastolic murmur, gallop, rubs, systolic murmur - GI/Abdominal GI/Abdominal exam: Present: normal bowel sounds, soft, no peritoneal signs. Absent: distended, tenderness - Extremities Exam Extremities exam: Present: pedal edema, warm, radial pulses palpable and symmetrical. Absent: calf tenderness, cyanotic Additional comments: Right foot with erythema and swelling; improved from yesterday's exam - Neurological Exam Neurological exam: Present: CN II-XII intact, oriented X3, no focal deficits. Absent: pronater drift, facial droop, speech deficit - Skin Skin exam: Present: dry, intact Internal Medicine: Result - Labs CBC & Chem 7: 08/23/17 06:42 08/23/17 04:30 Labs: Short CBC 08/23/17 Range/Units 06:42 WBC 9.4 (4.3-11.1) K/mcL Hgb 12.7 (11.5-15.4) g/dL Hct 35.8 (35.3-44.9) % Plt Count 155 (140-400) K/mcL BMP 08/23/17 04:30 Sodium 138 Potassium 3.7 Chloride 107 Carbon Dioxide 19 L BUN 13 Creatinine 1.08 Glucose 125 H Calcium 8.6 - Impressions Impressions Aorta w/Runoff CTA 08/23/17 10:24 IMPRESSION: 1. Mild atherosclerotic disease involving the aortoiliac system but no significant stenosis. 2. No significant stenosis right superficial femoral popliteal arteries. 3. Multiple stenosis involving the left popliteal artery with a severe stenosis just proximal to the knee joint. 4. 3 vessel runoff bilaterally although there is segmental disease involving the posterior tibial arteries. 5. Cholelithiasis. 6. Increase in size of the low-attenuation lesion involving the body of the pancreas measuring 1.4 cm. This may represent a pancreatic cystic neoplasm. This may be of doubtful clinical significance in a patient of this age. 7. Diverticulosis without obvious inflammation. 8. Constipation with question rectal fecal impaction. D/ / Camron Don MD / Camron Don MD Interpreting Provider: Camron Don MD - VTE Reasons for not Prescribing Prophylaxis: Not indicated-Anticoagulated or INR therapeutic Consult Discharge Plan - Plan Referrals: Kel Tejeda [Primary Care Provider] -
[2017-08-23] MEDS: Bisacodyl 10 MG RECTAL SUPPOSITORY RC SCH (16:38)
[2017-08-24] MEDS: Ciprofloxacin OPTH Soln 2.5 ML BOTTLE LEFT EYE SCH ×5 (03:49→20:53)
[2017-08-24] MEDS: Ciprofloxacin OPTH Soln 2.5 ML BOTTLE RIGHT EYE SCH ×5 (03:49→20:53)
[2017-08-24 07:27] LABS: Calcium 8.3 mg/dL (8.6-10.3); Potassium 3.5 mEq/L (3.5-5.1)
[2017-08-24 08:11] LABS: Hematocrit 33.3 % (35.3-44.9); Hemoglobin 11.3 g/dL (11.5-15.4); Mean Corpuscular HGB Conc 33.9 g/dL (31.6-35.5); Mean Corpuscular Hemoglobin 32.7 pg (28.0-33.3); Mean Corpuscular Volume 96.2 fL (83.0-100.0); Mean Platelet Volume 10.8 fL (9.4-12.4); Platelet Count 172 K/mcL (140-400); Red Blood Count 3.46 M/mcL (3.82-4.97); Red Cell Distribution Width 14.6 % (11.5-14.5)
[2017-08-24] MEDS: Aspirin Enteric Coated 81 MG Tablet PO SCH (09:09)
[2017-08-24] MEDS: 0.9 % Sodium Chloride 1,000 ML IVC SCH ×2 (09:09→18:04)
[2017-08-24] MEDS: Insulin LISPRO 300 UNITS/3 ML VIAL SQ SCH ×4 (09:10→21:03)
[2017-08-24] MEDS: *HR* OxyCODONE/APAP 5/325 TABLET PO SCH ×2 (09:12→20:57)
[2017-08-24] MEDS: Apixaban 2.5 MG TABLET PO SCH ×2 (09:13→20:57)
[2017-08-24] MEDS: Ascorbic Acid 500 MG TABLET PO SCH (09:13)
[2017-08-24] MEDS: Multivit/Ca/Min/Fe/FA 1 TAB TABLET PO SCH (09:13)
[2017-08-24] MEDS: Lactobacillus 1 EACH CAP.SPRINK PO SCH ×2 (09:13→20:56)
[2017-08-24] MEDS: Sennosides 8.6 MG TABLET PO SCH ×2 (09:14→21:20)
[2017-08-24] MEDS: Furosemide 40 MG TABLET PO SCH ×2 (09:14→17:54)
[2017-08-24] MEDS: Bisacodyl 10 MG RECTAL SUPPOSITORY RC SCH (09:22)
[2017-08-24] MEDS: cefTRIAXone 1,000 MG in Water for inj. (sterile) 20 ML 10 ML IVP SCH (09:22)
[2017-08-24] MEDS: Cefepime HCl 2,000 MG in Water for inj. (sterile) 20 ML 20 ML IVP SCH (17:54)
--- NOTE | 2017-08-24 19:02 | Internal Med Progress Note ---
Date of Encounter: 08/24/17 Time of Encounter: 13:00 - Assessment and plan (1) Cellulitis Current Visit: Yes Status: Acute Assessment and plan: Right lower extremity and right foot with redness and swelling right foot x-ray with soft tissue swelling no acute bony abdomen allergies or soft tissue gas. She has been on vancomycin. Family feels that there is no improvement today. I will consult infectious disease. Did speak with Dr. Torres who will see patient at phone consult requested initiate on cefepime Qualifiers: Site of cellulitis: extremity Site of cellulitis of extremity: lower extremity Laterality: right Qualified Code(s): L03.115 - Cellulitis of right lower limb (2) UTI (urinary tract infection) Current Visit: Yes Status: Acute Assessment and plan: UA indicative of UTI. Urine culture with Klebsiella pneumoniae. Sensitive to ceftriaxone. Continue IV ceftriaxone for now (day 5). Qualifiers: Urinary tract infection type: acute cystitis Hematuria presence: without hematuria Qualified Code(s): N30.00 - Acute cystitis without hematuria (3) Atrial fibrillation Current Visit: Yes Status: Chronic Assessment and plan: continue home Rx: atenolol, ASA, eliquis-rate controlled Qualifiers: Atrial fibrillation type: chronic Qualified Code(s): I48.2 - Chronic atrial fibrillation (4) History of stroke with current residual effects Current Visit: Yes Status: Chronic Assessment and plan: Patient is alert and oriented name attempts to follow simple commands (5) Diabetes mellitus Current Visit: Yes Status: Chronic Assessment and plan: per hx. Holding home oral hypoglycemics. SSI. Monitor blood sugar and titrate PRN Qualifiers: Diabetes mellitus type: type 2 Diabetes mellitus prison insulin use: with parts counterman use Diabetes mellitus complication status: with kidney complications Diabetes mellitus complication detail: with chronic kidney disease Chronic kidney disease stage: stage 3 (moderate) Qualified Code(s): E11.22 - Type 2 diabetes mellitus with diabetic chronic kidney disease; N18.3 - Chronic kidney disease, stage 3 (moderate); Z79.4 - ferry terminal agent (current) use of insulin (6) Hyperlipidemia Current Visit: Yes Status: Chronic Assessment and plan: continue home meds Qualifiers: Hyperlipidemia type: pure hypercholesterolemia Qualified Code(s): E78.00 - Pure hypercholesterolemia, unspecified; E78.0 - Pure hypercholesterolemia (7) Hypertension Current Visit: Yes Status: Chronic Assessment and plan: Stable at this time continue home medications Qualifiers: Hypertension type: essential hypertension Qualified Code(s): I10 - Essential (primary) hypertension (8) Dementia Current Visit: Yes Status: Chronic Assessment and plan: long standing dementia w/ CVA history. Patient is alert and oriented to name Qualifiers: Dementia type: Alzheimer's disease Alzheimer's disease onset: unspecified onset Dementia behavioral disturbance: without behavioral disturbance Qualified Code(s): G30.9 - Alzheimer's disease, unspecified; F02.80 - Dementia in other diseases classified elsewhere without behavioral disturbance (9) CKD (chronic kidney disease) Current Visit: Yes Status: Acute Assessment and plan: Patient is CKD 3b-4. Cr on admission is 1.79, baseline is 1.6. She is at baseline Monitor intake and output avoid nephrotoxins Qualifiers: Chronic kidney disease stage: stage 3 (moderate) Qualified Code(s): N18.3 - Chronic kidney disease, stage 3 (moderate) (10) Goals of care, counseling/discussion Current Visit: Yes Status: Acute Assessment and plan: Son, Hardy Hoyt [phone], is power of patent prosecution attorney. Patient code status is DNR/ DNI/CCA (11) Conjunctivitis Current Visit: Yes Status: Acute Assessment and plan: suspected; improving no redness or drainage noted. Cont ATB eye gtts Qualifiers: Conjunctivitis type: acute Acute conjunctivitis type: viral Laterality: bilateral Qualified Code(s): B30.9 - Viral conjunctivitis, unspecified (12) DVT prophylaxis Current Visit: Yes Status: Acute Assessment and plan: eliquis - Time Spent With Patient Total time spent is greater than 50% in coordination of care (as documented) at patient's floor/unit and/or counseling patient: - Subjective Interval history: This patient is new to me-examine the patient at the bedside. Patient is oriented to name only. Son is at bedside did examine patient's right leg son feels that the leg is worse than before. I did speak with infectious disease who will see the patient up on consult. - Constitutional Vitals: Temp Pulse Resp BP Pulse Ox 97.5 F L 65 14 118/76 93 08/24/17 15:01 08/24/17 15:01 08/24/17 15:01 08/24/17 15:01 08/24/17 15:01 General appearance: Present: cooperative, A&O X 1, pleasant, answers questions appropriately - Head Head exam: Present: atraumatic, normocephalic - Eye Eye exam: Present: PERRL, conjuntiva pink, sclera anicteric Pupils: Present: PERRL - Neck Neck exam general surgery: Present: supple, trachea midline. Absent: lymphadenopathy - Respiratory Respiratory exam: Present: CTAB. Absent: accessory muscle use, rales, rhonchi, wheezes - Cardiovascular Cardiovascular exam: Present: RRR, +S1, +S2. Absent: diastolic murmur, gallop, rubs, systolic murmur - GI/Abdominal GI/Abdominal exam: Present: normal bowel sounds, soft, no peritoneal signs. Absent: distended, tenderness - Extremities Exam Extremities exam: Present: pedal edema, tenderness, warm, radial pulses palpable and symmetrical. Absent: calf tenderness, cyanotic - Neurological Exam Neurological exam: Present: CN II-XII intact, oriented X3, no focal deficits. Absent: pronater drift, facial droop, speech deficit - Skin Skin exam: Present: dry, intact Internal Medicine: Result - Labs CBC & Chem 7: 08/24/17 07:51 08/24/17 06:25 Labs: Short CBC 08/24/17 Range/Units 07:51 WBC 8.5 (4.3-11.1) K/mcL Hgb 11.3 L (11.5-15.4) g/dL Hct 33.3 L (35.3-44.9) % Plt Count 172 (140-400) K/mcL [facility] 08/24/17 06:25 Sodium 137 Potassium 3.5 Chloride 109 H Carbon Dioxide 18 L BUN 14 Creatinine 1.29 H Glucose 94 Calcium 8.3 L - VTE Reasons for not Prescribing Prophylaxis: Not indicated-Anticoagulated or INR therapeutic Consult Discharge Plan - Plan Referrals: Kel Tejeda [Primary Care Provider] -
[2017-08-25] MEDS: Ciprofloxacin OPTH Soln 2.5 ML BOTTLE RIGHT EYE SCH ×6 (00:34→21:43)
[2017-08-25] MEDS: Ciprofloxacin OPTH Soln 2.5 ML BOTTLE LEFT EYE SCH ×6 (00:35→21:43)
[2017-08-25] MEDS: 0.9 % Sodium Chloride 1,000 ML IVC SCH ×2 (03:53→19:40)
[2017-08-25 05:19] LABS: Calcium 8.5 mg/dL (8.6-10.3); Potassium 3.7 mEq/L (3.5-5.1)
[2017-08-25] MEDS: Cefepime HCl 2,000 MG in Water for inj. (sterile) 20 ML 20 ML IVP SCH (06:00)
[2017-08-25 08:04] LABS: Basophils # 0.1 K/mcL (0.0-0.2); Basophils % 0.5 %; Eosinophils # 0.4 K/mcL (0.0-0.6); Eosinophils % 3.5 %; Hematocrit 35.7 % (35.3-44.9); Hemoglobin 12.7 g/dL (11.5-15.4); Immature Granulocytes % 0.7 % (0-4); Lymphocytes # 2.3 K/mcL (0.6-4.6); Mean Corpuscular HGB Conc 35.6 g/dL (31.6-35.5); Mean Corpuscular Hemoglobin 33.2 pg (28.0-33.3); Mean Corpuscular Volume 93.2 fL (83.0-100.0); Mean Platelet Volume 11.9 fL (9.4-12.4); Monocytes # 0.9 K/mcL (0.0-1.3); Monocytes % 8.3 %; Neutrophils # 7.3 K/mcL (1.6-8.9); Platelet Count 159 K/mcL (140-400); Red Blood Count 3.83 M/mcL (3.82-4.97); Red Cell Distribution Width 14.3 % (11.5-14.5)
[2017-08-25] MEDS: Apixaban 2.5 MG TABLET PO SCH ×2 (08:20→21:42)
[2017-08-25] MEDS: Lactobacillus 1 EACH CAP.SPRINK PO SCH ×2 (08:20→21:42)
[2017-08-25] MEDS: *HR* OxyCODONE/APAP 5/325 TABLET PO SCH ×2 (08:21→21:42)
[2017-08-25] MEDS: Ascorbic Acid 500 MG TABLET PO SCH (08:21)
[2017-08-25] MEDS: Sennosides 8.6 MG TABLET PO SCH ×2 (08:21→21:49)
[2017-08-25] MEDS: Multivit/Ca/Min/Fe/FA 1 TAB TABLET PO SCH (08:21)
[2017-08-25] MEDS: Bisacodyl 10 MG RECTAL SUPPOSITORY RC SCH (08:21)
[2017-08-25] MEDS: Aspirin Enteric Coated 81 MG Tablet PO SCH (08:21)
[2017-08-25] MEDS: Furosemide 40 MG TABLET PO SCH (08:21)
[2017-08-25] MEDS: Insulin LISPRO 300 UNITS/3 ML VIAL SQ SCH ×4 (08:26→21:43)
--- NOTE | 2017-08-25 10:14 | Infectious Disease Consult ---
Date of Encounter: 08/25/17 Time of Encounter: 10:03 Assessment and Plan (1) Right leg swelling Status: Acute Assessment and plan: At this point I am not convinced that this is a true cellulitis Patient does have some erythema however it is not well demarcated, there is no induration, or increased warmth. Patient has no leukocytosis, fevers She does have a small skin lesion on her foot however this does not appear to be infected Her overlying erythema may be skin changes related to significant lower extremity edema Would recommend increased diuresis (2) UTI (urinary tract infection) Status: Acute Assessment and plan: Causative organism Klebsiella pneumoniae Urine culture positive for Klebsiella pneumonia Patient had a mild leukocytosis of 11.7 on presentation however currently no signs of systemic infection Blood culture x1 drawn on admission is no growth Patient was initially started on vancomycin and Rocephin Currently on vancomycin, pharmacy dosing, and cefepime 2 g every 12 hours We will change cefepime dosing to 1 g every 24 hours based on patient's renal function Creatinine clearance 29 Today would be day 7 of antibiotic therapy Qualifiers: Urinary tract infection type: site unspecified Hematuria presence: without hematuria Qualified Code(s): N39.0 - Urinary tract infection, site not specified (3) CKD (chronic kidney disease) stage 3, GFR 30-59 ml/min Status: Chronic Assessment and plan: Renal function appears to be at baseline We will renally dose medications Continue to monitor renal function Creatinine clearance 29 (4) Atrial fibrillation Status: Chronic Qualifiers: Atrial fibrillation type: chronic Qualified Code(s): I48.2 - Chronic atrial fibrillation (5) Dementia Status: Chronic Qualifiers: Dementia type: Alzheimer's disease Alzheimer's disease onset: unspecified onset Dementia behavioral disturbance: without behavioral disturbance Qualified Code(s): G30.9 - Alzheimer's disease, unspecified; F02.80 - Dementia in other diseases classified elsewhere without behavioral disturbance (6) Diabetes mellitus Status: Chronic Qualifiers: Diabetes mellitus type: type 2 Diabetes mellitus moth exterminator insulin use: with moth exterminator use Diabetes mellitus complication status: with kidney complications Diabetes mellitus complication detail: with chronic kidney disease Chronic kidney disease stage: stage 3 (moderate) Qualified Code(s): E11.22 - Type 2 diabetes mellitus with diabetic chronic kidney disease; N18.3 - Chronic kidney disease, stage 3 (moderate); Z79.4 - custodial (current) use of insulin (7) History of stroke with current residual effects Status: Chronic Infectious Disease HPI - Data of Consult Patient: new to practice Consult date: 08/25/17 Requesting Physician: Sonia Lim Primary Care Provider: Kel Tejeda - Consult Narrative Reason for consult: Cellulitis History of present illness: Ms. Silva is a 87 year old female with history of type 2 diabetes, hypertension, atrial fibrillation, CVA, CKD stage 3, previous cellulitis and UTI was admitted on August 19 for cellulitis and urinary tract infection. Infectious disease service was consulted on August 24 for concerns of recurrent cellulitis/UTI. Patient is a 87-year-old female with medical history as discussed above. She currently lives at [facility] and has been treated at this facility previously for urinary tract infections and cellulitis. Patient was apparently brought in by her soon for concerns of right leg cellulitis. At the time I examined there is no family at bedside and patient is not a reliable historian. She is alert and oriented to person and place only. She is unable to provide history as to the events that led to her admission. History is mainly obtained from the medical record. Apparently she was treated with an antibiotic at the shelter which is possibly doxycycline. Apparently she has not responded to current antibiotic therapy. CC: Sonia Lim Past Med Surg Social Fam HX - Past Medical History Medical history: atrial fibrillation, CVA, dementia, diabetes, hyperlipidemia, hypertension, renal disease, other Psychiatric history: no psych history - Past Surgical History Surgical History: no surgical history, cholecystectomy, hysterectomy - Social History Smoking Status: Never smoker Smokeless Tobacco Status: No Alcohol use: none Drug use: none - Family History Brother Living Status: Infectious Disease-CN:Meds Apixaban [Eliquis] 2.5 mg PO BID 08/19/17 [History] Ascorbic Acid [Vitamin C with Madelyn Hips] 500 mg PO DAILY 08/19/17 [History] Aspirin [Lo-Dose Aspirin EC] 81 mg PO DAILY 08/19/17 [History] Atenolol [Tenormin] 50 mg PO DAILY 08/19/17 [History] Doxycycline Monohydrate [Okebo] 100 mg PO DAILY 08/19/17 [History] Furosemide [Lasix] 40 mg PO BID 08/19/17 [History] GlipiZIDE [Glipizide Xl] 5 mg PO DAILY 08/19/17 [History] Insulin ASPART [Novolog Flexpen] 7 unit SQ 0800 08/19/17 [History] Insulin ASPART [Novolog Flexpen] 12 unit SQ 1700 08/19/17 [History] Insulin ASPART [Novolog Flexpen] 15 unit SQ 1200 08/19/17 [History] Insulin DETEMIR [Levemir Flextouch] 25 unit SQ 2000 08/19/17 [History] Lactobacillus Acidophilus [Acidophilus Lactobacillus] 1 cap PO BID 08/19/17 [ History] Memantine HCl 10 mg PO BID 08/19/17 [History] Multivit-Min/FA/Lycopen/Lutein [A Thru Z Select Multivit Tab] 1 tab PO DAILY [History] Oxycodone HCl/Acetaminophen [Percocet 5-325 mg Tablet] 0.5 tab PO BID 08/19/17 [ History] Polyethylene Glycol 3350 [MiraLAX Powder Bulk 17.9 Oz] 1 scoop PO DAILY [History] Potassium Chloride [Klor-Con 10] 10 meq PO DAILY 08/19/17 [History] Sennosides [Senna] 17.2 mg PO BID 08/19/17 [History] 3 Allergy/AdvReac Type Severity Reaction Status Date / Time Sulfa (Sulfonamide Allergy Hives Verified 08/19/17 16:20 Antibiotics) ROS unobtainable: due to mental status Exam - Constitutional Vitals: Temp Pulse Resp BP Pulse Ox 99.0 F 92 15 183/84 90 08/25/17 07:51 08/25/17 07:51 08/25/17 07:51 08/25/17 07:51 08/25/17 07:51 General appearance: obese - Head Head exam: Present: atraumatic, normal inspection, normocephalic - Eye Eye exam: Present: EOMI, PERRL - ENT ENT exam: Present: mucous membranes moist - Respiratory Respiratory exam: Present: CTAB. Absent: rales, rhonchi, wheezes - Cardiovascular Cardiovascular exam: Present: irregular rhythm. Absent: diastolic murmur, systolic murmur, tachycardia - GI/Abdominal GI/Abdominal exam: Present: hypoactive bowel sounds, soft. Absent: distended, tenderness - Extremities Exam Additional comments: There is mild erythema of the legs bilaterally, right greater than left. There is no induration, increased warmth, or area of fluctuance noted. There is a small (approximately 2-3 mm) skin break on the medial aspect of the right foot at the level of the distal first metatarsal. There is dried blood overlying. No surrounding erythema, drainage. 3+ pitting edema on right, 2+ pitting edema on left. - Neurological Exam Neurological exam: Present: alert, altered (Oriented to person and place), no focal deficits - Skin Skin exam: Present: dry, warm Infectious Disease CN: Results - Labs CBC & Chem 7: 08/25/17 07:21 08/25/17 04:34 - VTE Reasons for not Prescribing Prophylaxis: Not indicated-Anticoagulated or INR therapeutic Consult Discharge Plan - Plan Referrals: Kel Tejeda [Primary Care Provider] - - Attending Attestation I examined this patient and my medical decision-making was reviewed with the Resident Physician. I agree with the documented findings, disposition and treatment plan as described except to the extent set forth below. This is an addendum to original report dictated by resident physician. Please refer to residents note for full detail. Patient is an 87-year-old woman with baseline dementia, diabetes mellitus type 2 , atrial fibrillation, who is not a good historian and most of the information was taken from medical records and family at bedside. Patient came in with recurrent cellulitis and UTI. Initially patient was started on vancomycin and family was concerned that the erythema and the swelling was getting worse. They called me yesterday and I recommended adding cefepime on Axid I will evaluate the patient in the morning. Currently patient was sitting up in bed appears comfortable was eating dinner. She does have dementia and unable to give me much of an answer. Family is concerned that the patient is short of breath and seems to get winded while having conversation. Lungs do not sound bad on physical exam. Bilateral lower extremity with chronic venous stasis and there is some more erythema process on the right compared to the left. When I touched her. It was painful. Overall looks much better than when I saw 2 days ago. Assessment and plan Shortness of breath etiology not clear. Not sure if this is cardiogenic versus pulmonary versus infectious Cellulitis of the right lower extremity causative organism unclear but improved on vancomycin and cefepime Advanced dementia and Diabetes mellitus type 2 Urinary tract infection Recommendation Agree with vancomycin And cefepime dose adjust based on creatinine clearance Get a chest x-ray to make sure the patient has no pneumonia DVT/PE is always on my but it is very low my differential. I spent to the family that the patient is high risk for a CT with contrast specially with her kidney function. I figured we will start with a chest x-ray and if that is negative and the patient continues to get more short of breath I will defer to the hospitalist team to make further recommendations. Duration of treatment with Vanco and cefepime until the patient does clinically better at then probably discharge her on oral levofloxacin plus Doxy to finish a 14 days course total. Monitor labs and for drug toxicity
--- NOTE | 2017-08-25 13:13 | Internal Med Progress Note ---
Date of Encounter: 08/25/17 Time of Encounter: 13:13 - Assessment and plan (1) Cellulitis Current Visit: Yes Status: Acute Assessment and plan: R foot redness has improved, ID has been consulted which they do not believe this is a true cellulitis- erythema may be skin changes related to significant lower extremity edema- recommend diuresis No leukocytosis, fevers on Vanc cefepime day 6 Qualifiers: Site of cellulitis: extremity Site of cellulitis of extremity: lower extremity Laterality: right Qualified Code(s): L03.115 - Cellulitis of right lower limb (2) UTI (urinary tract infection) Current Visit: Yes Status: Acute Assessment and plan: UA indicative of UTI. Urine culture with Klebsiella pneumoniae. Sensitive to ceftriaxone which received 5 dose - was placed on cefepime- which is sensitive- per ID recommendations for cellulitis- will continue- Day 6 Qualifiers: Urinary tract infection type: acute cystitis Hematuria presence: without hematuria Qualified Code(s): N30.00 - Acute cystitis without hematuria (3) Atrial fibrillation Current Visit: Yes Status: Chronic Assessment and plan: continue home Rx: atenolol, ASA, eliquis-rate controlled Qualifiers: Atrial fibrillation type: chronic Qualified Code(s): I48.2 - Chronic atrial fibrillation (4) History of stroke with current residual effects Current Visit: Yes Status: Chronic Assessment and plan: Patient is alert and oriented name attempts to follow simple commands (5) Diabetes mellitus Current Visit: Yes Status: Chronic Assessment and plan: per hx. Holding home oral hypoglycemics. SSI. 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 insulin use: with custodial use Diabetes mellitus complication status: with kidney complications Diabetes mellitus complication detail: with chronic kidney disease Chronic kidney disease stage: stage 3 (moderate) Qualified Code(s): E11.22 - Type 2 diabetes mellitus with diabetic chronic kidney disease; N18.3 - Chronic kidney disease, stage 3 (moderate); Z79.4 - skilled nursing (current) use of insulin (6) Hyperlipidemia Current Visit: Yes Status: Chronic Assessment and plan: continue home meds Qualifiers: Hyperlipidemia type: pure hypercholesterolemia Qualified Code(s): E78.00 - Pure hypercholesterolemia, unspecified; E78.0 - Pure hypercholesterolemia (7) Hypertension Current Visit: Yes Status: Chronic Assessment and plan: Stable at this time continue home medications Qualifiers: Hypertension type: essential hypertension Qualified Code(s): I10 - Essential (primary) hypertension (8) Dementia Current Visit: Yes Status: Chronic Assessment and plan: long standing dementia w/ CVA history. Patient is alert and oriented to name Qualifiers: Dementia type: Alzheimer's disease Alzheimer's disease onset: unspecified onset Dementia behavioral disturbance: without behavioral disturbance Qualified Code(s): G30.9 - Alzheimer's disease, unspecified; F02.80 - Dementia in other diseases classified elsewhere without behavioral disturbance (9) CKD (chronic kidney disease) Current Visit: Yes Status: Acute Assessment and plan: Patient is CKD 3b-4. Cr on admission is 1.79, baseline is 1.6. She is at baseline Monitor intake and output avoid nephrotoxins Qualifiers: Chronic kidney disease stage: stage 3 (moderate) Qualified Code(s): N18.3 - Chronic kidney disease, stage 3 (moderate) (10) Goals of care, counseling/discussion Current Visit: Yes Status: Acute Assessment and plan: Son, Hardy Hoyt [phone], is power of litigation attorney. Patient code status is DNR/ DNI/CCA (11) Conjunctivitis Current Visit: Yes Status: Acute Assessment and plan: suspected; improving no redness or drainage noted. Cont ATB eye gtts Qualifiers: Conjunctivitis type: acute Acute conjunctivitis type: viral Laterality: bilateral Qualified Code(s): B30.9 - Viral conjunctivitis, unspecified (12) DVT prophylaxis Current Visit: Yes Status: Acute Assessment and plan: eliquis - Time Spent With Patient Total time spent is greater than 50% in coordination of care (as documented) at patient's floor/unit and/or counseling patient: - Subjective Interval history: Patient seen and examined at bedside. She is alert and oriented to name. She is pleasant cooperative, much improved from yesterday. Denies any pain or discomfort - Constitutional Vitals: Temp Pulse Resp BP Pulse Ox 98.8 F 72 16 154/83 94 08/25/17 11:06 08/25/17 11:06 08/25/17 11:06 08/25/17 11:06 08/25/17 11:06 General appearance: Present: cooperative, A&O X 1, pleasant, answers questions appropriately - Head Head exam: Present: atraumatic, normocephalic - Eye Eye exam: Present: PERRL, conjuntiva pink, sclera anicteric Pupils: Present: PERRL - Neck Neck exam general surgery: Present: supple, trachea midline. Absent: lymphadenopathy - Respiratory Respiratory exam: Present: CTAB. Absent: accessory muscle use, rales, rhonchi, wheezes - Cardiovascular Cardiovascular exam: Present: RRR, +S1, +S2. Absent: diastolic murmur, gallop, rubs, systolic murmur - GI/Abdominal GI/Abdominal exam: Present: normal bowel sounds, soft, no peritoneal signs. Absent: distended, tenderness - Extremities Exam Extremities exam: Present: pedal edema, warm, radial pulses palpable and symmetrical. Absent: calf tenderness, cyanotic - Neurological Exam Neurological exam: Present: CN II-XII intact, oriented X3, no focal deficits. Absent: pronater drift, facial droop, speech deficit - Skin Skin exam: Present: dry, intact Internal Medicine: Result - Labs CBC & Chem 7: 08/25/17 07:21 08/25/17 04:34 Labs: Short CBC 08/25/17 Range/Units 07:21 WBC 11.1 (4.3-11.1) K/mcL Hgb 12.7 (11.5-15.4) g/dL Hct 35.7 (35.3-44.9) % Plt Count 159 (140-400) K/mcL Neutrophils # 7.3 (1.6-8.9) K/mcL BMP 08/25/17 04:34 Sodium 137 Potassium 3.7 Chloride 108 H Carbon Dioxide 19 L BUN 19 Creatinine 1.48 H Glucose 186 H Calcium 8.5 L - VTE Reasons for not Prescribing Prophylaxis: Not indicated-Anticoagulated or INR therapeutic Consult Discharge Plan - Plan Referrals: Kel Tejeda [Primary Care Provider] -
[2017-08-25] MEDS: Furosemide 40 MG/4 ML VIAL IVP SCH (18:31)
[2017-08-26] MEDS: Ciprofloxacin OPTH Soln 2.5 ML BOTTLE LEFT EYE SCH ×6 (00:48→20:59)
[2017-08-26] MEDS: Ciprofloxacin OPTH Soln 2.5 ML BOTTLE RIGHT EYE SCH ×6 (00:48→20:59)
[2017-08-26] MEDS: Bisacodyl 10 MG RECTAL SUPPOSITORY RC SCH (07:24)
[2017-08-26] MEDS: Lactobacillus 1 EACH CAP.SPRINK PO SCH ×2 (07:24→21:00)
[2017-08-26] MEDS: Apixaban 2.5 MG TABLET PO SCH ×2 (07:25→20:59)
[2017-08-26] MEDS: Aspirin Enteric Coated 81 MG Tablet PO SCH (07:25)
[2017-08-26] MEDS: *HR* OxyCODONE/APAP 5/325 TABLET PO SCH ×2 (07:25→21:00)
[2017-08-26] MEDS: Ascorbic Acid 500 MG TABLET PO SCH (07:25)
[2017-08-26] MEDS: Sennosides 8.6 MG TABLET PO SCH ×2 (07:25→21:00)
[2017-08-26] MEDS: Multivit/Ca/Min/Fe/FA 1 TAB TABLET PO SCH (07:25)
[2017-08-26] MEDS: Furosemide 40 MG/4 ML VIAL IVP SCH ×2 (07:26→17:00)
[2017-08-26] MEDS: Cefepime HCl 1,000 MG in Water for inj. (sterile) 20 ML 10 ML IVP SCH (07:26)
[2017-08-26] MEDS: Insulin LISPRO 300 UNITS/3 ML VIAL SQ SCH ×4 (07:27→21:00)
[2017-08-26 09:09] LABS: Basophils % 0.4 %; Eosinophils # 0.4 K/mcL (0.0-0.6); Eosinophils % 3.3 %; Hematocrit 34.5 % (35.3-44.9); Hemoglobin 11.6 g/dL (11.5-15.4); Immature Granulocytes % 0.6 % (0-4); Lymphocytes # 1.4 K/mcL (0.6-4.6); Lymphocytes % 13.3 %; Mean Corpuscular HGB Conc 33.6 g/dL (31.6-35.5); Monocytes # 0.8 K/mcL (0.0-1.3); Monocytes % 7.7 %; Neutrophils # 7.9 K/mcL (1.6-8.9); Platelet Count 206 K/mcL (140-400); Red Blood Count 3.52 M/mcL (3.82-4.97); Red Cell Distribution Width 14.6 % (11.5-14.5); Segmented Neutrophils % 74.7 %
--- NOTE | 2017-08-26 10:10 | Internal Med Progress Note ---
Date of Encounter: 08/26/17 Time of Encounter: 10:10 - Assessment and plan (1) Cellulitis Current Visit: Yes Status: Acute Assessment and plan: R foot redness has improved, ID has been consulted which etiology is unclear infection vs other- will cont lasix she appears to be fluid overloaded, Cont Vanc pharmacy to dose day 7 cont cefepime 1 gm every 24hrs No leukocytosis, fevers recommendations from ID note 08/26- Has completed 7 days of IV antibiotics. Will likely be able to switch to doxycycline and levaquin on discharge to complete a 14 day course. Continue leg elevation. Consider compression stockings if patient tolerates Qualifiers: Site of cellulitis: extremity Site of cellulitis of extremity: lower extremity Laterality: right Qualified Code(s): L03.115 - Cellulitis of right lower limb (2) UTI (urinary tract infection) Current Visit: Yes Status: Acute Assessment and plan: UA indicative of UTI. Urine culture with Klebsiella pneumoniae. Sensitive to ceftriaxone which received 5 dose - was placed on cefepime- which is sensitive- per ID recommendations for cellulitis- will continue- Day 7 Qualifiers: Urinary tract infection type: acute cystitis Hematuria presence: without hematuria Qualified Code(s): N30.00 - Acute cystitis without hematuria (3) Atrial fibrillation Current Visit: Yes Status: Chronic Assessment and plan: continue home Rx: atenolol, ASA, eliquis-rate controlled Qualifiers: Atrial fibrillation type: chronic Qualified Code(s): I48.2 - Chronic atrial fibrillation (4) History of stroke with current residual effects Current Visit: Yes Status: Chronic Assessment and plan: Patient is alert and oriented name attempts to follow simple commands on ASA eliquis-hx afib (5) Diabetes mellitus Current Visit: Yes Status: Chronic Assessment and plan: per hx. Holding home oral hypoglycemics. SSI. 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 Patient is alert and oriented to name Qualifiers: Dementia type: Alzheimer's disease Alzheimer's disease onset: unspecified onset Dementia behavioral disturbance: without behavioral disturbance Qualified Code(s): G30.9 - Alzheimer's disease, unspecified; F02.80 - Dementia in other diseases classified elsewhere without behavioral disturbance (9) CKD (chronic kidney disease) Current Visit: Yes Status: Acute Assessment and plan: Patient is CKD 3b-4. Cr on admission is 1.79, baseline is 1.6. She is at baseline Monitor intake and output avoid nephrotoxins Qualifiers: Chronic kidney disease stage: stage 3 (moderate) Qualified Code(s): N18.3 - Chronic kidney disease, stage 3 (moderate) (10) Goals of care, counseling/discussion Current Visit: Yes Status: Acute Assessment and plan: Son, Hardy Hoyt [phone], is power of senior trial attorney. Patient code status is DNR/ DNI/CCA (11) Conjunctivitis Current Visit: Yes Status: Acute Assessment and plan: suspected; improving no redness or drainage noted. Cont ATB eye gtts Qualifiers: Conjunctivitis type: acute Acute conjunctivitis type: viral Laterality: bilateral Qualified Code(s): B30.9 - Viral conjunctivitis, unspecified (12) DVT prophylaxis Current Visit: Yes Status: Acute (13) Pulmonary edema Current Visit: Yes Status: Acute Assessment and plan: CXR did show pulmonary edema- patient has received IVF since admission- 11 L- IVF discontinued- we will cont with lasix and monitor intake- patient is incontinent of urine daily weights Qualifiers: Chronicity: acute Qualified Code(s): J81.0 - Acute pulmonary edema - Time Spent With Patient Total time spent is greater than 50% in coordination of care (as documented) at patient's floor/unit and/or counseling patient: - Subjective Interval history: Patient seen and examined at bedside. She is alert and oriented to name. She is pleasant cooperative, interactive - Constitutional Vitals: Temp Pulse Resp BP Pulse Ox 99.1 F 79 17 162/86 94 08/26/17 06:54 08/26/17 06:54 08/26/17 06:54 08/26/17 06:54 08/26/17 06:54 General appearance: Present: cooperative, A&O X 1, pleasant, answers questions appropriately - Head Head exam: Present: atraumatic, normocephalic - Eye Eye exam: Present: PERRL, conjuntiva pink, sclera anicteric Pupils: Present: PERRL - Neck Neck exam general surgery: Present: supple, trachea midline. Absent: lymphadenopathy - Respiratory Respiratory exam: Present: rales. Absent: accessory muscle use, rhonchi, wheezes - Cardiovascular Cardiovascular exam: Present: RRR, +S1, +S2. Absent: diastolic murmur, gallop, rubs, systolic murmur - GI/Abdominal GI/Abdominal exam: Present: normal bowel sounds, soft, no peritoneal signs. Absent: distended, tenderness - Extremities Exam Extremities exam: Present: warm, radial pulses palpable and symmetrical. Absent : calf tenderness, cyanotic, pedal edema - Neurological Exam Neurological exam: Present: CN II-XII intact, oriented X3, no focal deficits. Absent: pronater drift, facial droop, speech deficit - Skin Skin exam: Present: dry, intact Internal Medicine: Result - Labs CBC & Chem 7: 08/26/17 08:17 08/26/17 08:17 Labs: Short CBC 08/26/17 Range/Units 08:17 WBC 10.5 (4.3-11.1) K/mcL Hgb 11.6 (11.5-15.4) g/dL Hct 34.5 L (35.3-44.9) % Plt Count 206 (140-400) K/mcL Neutrophils # 7.9 (1.6-8.9) K/mcL - Impressions Impressions Chest X-Ray 08/25/17 18:32 IMPRESSION: Cardiomegaly and pulmonary edema are identified. Cardiogenic causes considered. Disease process new compared to 08/19/2017 D/ / Herbie Richardson / Herbie Richardson Interpreting Provider: Herbie Richardson - VTE Reasons for not Prescribing Prophylaxis: Not indicated-Anticoagulated or INR therapeutic Consult Discharge Plan - Plan Referrals: Kel Tejeda [Primary Care Provider] -
[2017-08-26 10:11] LABS: Calcium 9.1 mg/dL (8.6-10.3); Potassium 3.4 mEq/L (3.5-5.1)
--- NOTE | 2017-08-26 11:26 | Infectious Disease Progress No ---
Date of Encounter: 08/26/17 Time of Encounter: 11:24 - Assessment and Plan (1) Right leg swelling Current Visit: Yes Status: Acute Etiology unclear: infection vs. other. The patient does have some erythema to the RLE, although it is not well demarcated and no fluctuance or marked warmth. No SIRS criteria. Recommend increased diuresis. Clinically improved since being on antibiotics, but the clinical picture does not add up. Unfortunately, the patient is a poor candidate to undergo CT of the LE with contrast due to her CKD. If clinical picture worsens, consider CT without contrast and/or DVT study. Continue Vancomucin IV. Pharmacy to dose. Goal trough ~15. Continue Cefepime 1 gram IV Q24H. Duration of treatment depends on the clinical picture. Monitor renal function and for drug toxicity and dose-adjust antibiotics. Has completed 7 days of IV antibiotics. Will likely be able to switch to doxycycline and levaquin on discharge to complete a 14 day course. Continue leg elevation. Consider compression stockings if the patient is able to tolerate as there is likely an element of venous stasis contributing as well. (2) UTI (urinary tract infection) Current Visit: Yes Status: Acute Asymptomatic bacteriuria vs. true infection. The patient's mental status precludes her ability to provide an adequate history or ROS. Causative organism Klebsiella pneumoniae Patient had a mild leukocytosis of 11.7 on presentation however currently no signs of systemic infection. Blood culture x1 drawn on admission is no growth. Patient was initially started on vancomycin and Rocephin. Continue cefepime 1 g every 24 hours based on patient's renal function. Duration of treatment depends on the clinical picture. This is day 7 of antibiotic therapy, which is likely adequate, but will require prolonged course due to possible RLE cellulitis. Qualifiers: Urinary tract infection type: acute cystitis Hematuria presence: without hematuria Qualified Code(s): N30.00 - Acute cystitis without hematuria (3) Pulmonary edema Current Visit: Yes Status: Acute CXR showed cardiomegaly with pulmonary edema. Likely secondary to fluid overload. The patient is incontinent of urine, so her output has not been tracked, but she has had 11 liters of IV fluids since admission. Clinically asymptomatic at this time. Management per the primary team. Qualifiers: Chronicity: acute Qualified Code(s): J81.0 - Acute pulmonary edema (4) CKD (chronic kidney disease) stage 3, GFR 30-59 ml/min Current Visit: No Status: Chronic Renal function appears to be at baseline. We will renally dose medications. Continue to monitor renal function. Creatinine clearance 29. (5) Atrial fibrillation Current Visit: Yes Status: Chronic Qualifiers: Atrial fibrillation type: chronic Qualified Code(s): I48.2 - Chronic atrial fibrillation (6) Dementia Current Visit: Yes Status: Chronic Qualifiers: Dementia type: Alzheimer's disease Alzheimer's disease onset: unspecified onset Dementia behavioral disturbance: without behavioral disturbance Qualified Code(s): G30.9 - Alzheimer's disease, unspecified; F02.80 - Dementia in other diseases classified elsewhere without behavioral disturbance (7) Diabetes mellitus Current Visit: Yes Status: Chronic Qualifiers: Diabetes mellitus type: type 2 Diabetes mellitus intermediate insulin use: with intermediate use Diabetes mellitus complication status: with kidney complications Diabetes mellitus complication detail: with chronic kidney disease Chronic kidney disease stage: stage 3 (moderate) Qualified Code(s): E11.22 - Type 2 diabetes mellitus with diabetic chronic kidney disease; N18.3 - Chronic kidney disease, stage 3 (moderate); 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 No acute events noted overnight. Patient's daughter at the bedside. She is sitting up in the bed eating oatmeal. Denies any acute complaints. Denies fevers chills or rigors. Denies chest pain, shortness of breath, or cough. The ninth nausea or vomiting or diarrhea. Denies pain in her back or extremities at this time. No new issues per nursing. Infect Dis PN-Objective Data - Labs CBC & Chem 7: 08/26/17 08:17 08/26/17 08:17 Labs: Laboratory Results - last 24 hr 08/24/17 08/25/17 08/25/17 20:23 07:52 11:03 WBC RBC Hgb Hct MCV MCH MCHC RDW Plt Count MPV Immature Gran % Seg Neutrophils % Lymphocytes % Monocytes % Eosinophils % Basophils % Neutrophils # Lymphocytes # Monocytes # Eosinophils # Basophils # Sodium Potassium Chloride Carbon Dioxide BUN Creatinine Est GFR ( Amer) Est GFR (Non-Af Amer) BUN/Creatinine Ratio Glucose POC Glucose 261 H 180 H 330 H Calculated Osmolality Calcium Random Vancomycin 08/25/17 08/25/17 08/26/17 15:41 20:46 08:17 WBC RBC Hgb Hct MCV MCH MCHC RDW Plt Count MPV Immature Gran % Seg Neutrophils % Lymphocytes % Monocytes % Eosinophils % Basophils % Neutrophils # Lymphocytes # Monocytes # Eosinophils # Basophils # Sodium Potassium Chloride Carbon Dioxide BUN Creatinine Est GFR ( Amer) Est GFR (Non-Af Amer) BUN/Creatinine Ratio Glucose POC Glucose 207 H 278 H Calculated Osmolality Calcium Random Vancomycin 17 08/26/17 08/26/17 08:17 08:17 WBC 10.5 RBC 3.52 L Hgb 11.6 Hct 34.5 L MCV 98.0 MCH 33.0 MCHC 33.6 RDW 14.6 H Plt Count 206 MPV 11.0 Immature Gran % 0.6 Seg Neutrophils % 74.7 Lymphocytes % 13.3 Monocytes % 7.7 Eosinophils % 3.3 Basophils % 0.4 Neutrophils # 7.9 Lymphocytes # 1.4 Monocytes # 0.8 Eosinophils # 0.4 Basophils # 0.0 Sodium 136 Potassium 3.4 L Chloride 106 Carbon Dioxide 19 L BUN 19 Creatinine 1.62 H Est GFR ( Amer) 37 L Est GFR (Non-Af Amer) 30 L BUN/Creatinine Ratio 12 Glucose 210 H POC Glucose Calculated Osmolality 290 Calcium 9.1 Random Vancomycin - Impressions Impressions Chest X-Ray 08/25/17 18:32 IMPRESSION: Cardiomegaly and pulmonary edema are identified. Cardiogenic causes considered. Disease process new compared to 08/19/2017 D/ / Herbie Richardson / Herbie Richardson Interpreting Provider: Herbie Richardson Exam - Constitutional Vitals: Temp Pulse Resp BP Pulse Ox 98.0 F 69 15 150/83 92 08/26/17 11:17 08/26/17 11:17 08/26/17 11:17 08/26/17 11:17 08/26/17 11:17 General appearance: average body habitus, cooperative, no acute distress - Head Head exam: Present: atraumatic, normal inspection, normocephalic - Eye Eye exam: Present: PERRL. Absent: normal appearance (Conjunctival injection noted to the right eye area and no drainage noted. Patient denies pain.) Pupils: Present: normal accommodation - ENT ENT exam: Present: mucous membranes moist - Neck Neck exam: Present: normal inspection - Respiratory Respiratory exam: Present: CTAB. Absent: rales, respiratory distress, rhonchi, wheezes - Cardiovascular Cardiovascular exam: Present: RRR, +S1, +S2 - GI/Abdominal GI/Abdominal exam: Present: normal bowel sounds, soft. Absent: distended, tenderness - Extremities Exam Extremities exam: Present: pedal edema (2+ edema noted to the right lower extremity. 1+ edema noted to the left lower extremity.). Absent: joint swelling, normal inspection (Venous stasis dermatitis noted bilateral lower extremities.), tenderness Additional comments: Mild erythema noted to the right lower extremity, improved per the patient's daughter's report. Mild warmth with palpation. Nontender. No open lesions or sores noted. - Neurological Exam Neurological exam: Present: alert, oriented X3, no focal deficits - Psychiatric Psychiatric exam: Present: normal affect, normal mood - Skin Skin exam: Present: dry, intact, normal color, warm - VTE Reasons for not Prescribing Prophylaxis: Not indicated-Anticoagulated or INR therapeutic Consult Discharge Plan - Plan Referrals: Kel Tejeda [Primary Care Provider] - - Attending Attestation I examined this patient and my medical decision-making was reviewed with the Resident Physician. I agree with the documented findings, disposition and treatment plan as described except to the extent set forth below.
[2017-08-27] MEDS: Ciprofloxacin OPTH Soln 2.5 ML BOTTLE RIGHT EYE SCH ×6 (00:19→21:22)
[2017-08-27] MEDS: Ciprofloxacin OPTH Soln 2.5 ML BOTTLE LEFT EYE SCH ×6 (00:19→21:22)
[2017-08-27 04:26] LABS: Basophils % 0.4 %; Eosinophils # 0.4 K/mcL (0.0-0.6); Eosinophils % 4.8 %; Hematocrit 31.3 % (35.3-44.9); Hemoglobin 10.8 g/dL (11.5-15.4); Immature Granulocytes % 0.7 % (0-4); Lymphocytes # 1.5 K/mcL (0.6-4.6); Mean Corpuscular HGB Conc 34.5 g/dL (31.6-35.5); Mean Corpuscular Hemoglobin 32.7 pg (28.0-33.3); Mean Corpuscular Volume 94.8 fL (83.0-100.0); Mean Platelet Volume 10.9 fL (9.4-12.4); Monocytes # 0.6 K/mcL (0.0-1.3); Monocytes % 7.9 %; Neutrophils # 5.5 K/mcL (1.6-8.9); Platelet Count 222 K/mcL (140-400); Red Cell Distribution Width 14.3 % (11.5-14.5); Segmented Neutrophils % 68.2 %
[2017-08-27 04:44] LABS: Calcium 8.9 mg/dL (8.6-10.3); Potassium 3.5 mEq/L (3.5-5.1)
[2017-08-27] MEDS: Insulin LISPRO 300 UNITS/3 ML VIAL SQ SCH ×4 (08:25→21:23)
[2017-08-27] MEDS: Cefepime HCl 1,000 MG in Water for inj. (sterile) 20 ML 10 ML IVP SCH (08:27)
[2017-08-27] MEDS: Furosemide 40 MG/4 ML VIAL IVP SCH (08:29)
[2017-08-27] MEDS: Multivit/Ca/Min/Fe/FA 1 TAB TABLET PO SCH (08:29)
[2017-08-27] MEDS: Ascorbic Acid 500 MG TABLET PO SCH (08:29)
[2017-08-27] MEDS: Lactobacillus 1 EACH CAP.SPRINK PO SCH ×2 (08:29→21:21)
[2017-08-27] MEDS: Apixaban 2.5 MG TABLET PO SCH ×2 (08:30→21:21)
[2017-08-27] MEDS: Bisacodyl 10 MG RECTAL SUPPOSITORY RC SCH (08:30)
[2017-08-27] MEDS: Aspirin Enteric Coated 81 MG Tablet PO SCH (08:30)
[2017-08-27] MEDS: *HR* OxyCODONE/APAP 5/325 TABLET PO SCH ×2 (08:31→21:21)
[2017-08-27] MEDS: Sennosides 8.6 MG TABLET PO SCH ×2 (08:31→21:21)
--- NOTE | 2017-08-27 09:04 | Infectious Disease Progress No ---
Date of Encounter: 08/27/17 Time of Encounter: 09:02 - Assessment and Plan (1) Right leg swelling Current Visit: Yes Status: Acute Etiology unclear: infection vs. other. The patient does have some erythema to the RLE, although it is not well demarcated and no fluctuance or marked warmth. No SIRS criteria. Recommend continued diuresis. Clinically improved since being on antibiotics, but the clinical picture does not add up to cellulitis. Unfortunately, the patient is a poor candidate to undergo CT of the LE with contrast due to her CKD. If clinical picture worsens, consider CT without contrast and/or DVT study. DC Vancomycin IV and cefepime IV. Has completed 8 days of IV antibiotics. Will switch to oral doxycycline 100mg BID and levaquin 750mg every other day on discharge to complete a 14 day course. Monitor renal function and for drug toxicity and dose-adjust antibiotics. Continue leg elevation. Consider compression stockings if the patient is able to tolerate as there is likely an element of venous stasis contributing as well. (2) UTI (urinary tract infection) Current Visit: Yes Status: Acute Asymptomatic bacteriuria vs. true infection. The patient's mental status precludes her ability to provide an adequate history or ROS. Causative organism Klebsiella pneumoniae Patient had a mild leukocytosis of 11.7 on presentation however currently no signs of systemic infection. Blood culture x1 drawn on admission is no growth. Patient was initially started on vancomycin and Rocephin. Swtich to PO abx as above Duration of treatment depends on the clinical picture. This is day 8 of antibiotic therapy, which is likely adequate, but will require prolonged course due to possible RLE cellulitis. Qualifiers: Urinary tract infection type: site unspecified Hematuria presence: without hematuria Qualified Code(s): N39.0 - Urinary tract infection, site not specified (3) Pulmonary edema Current Visit: Yes Status: Acute CXR showed cardiomegaly with pulmonary edema. Likely secondary to fluid overload. The patient is incontinent of urine, so her output has not been tracked Clinically asymptomatic at this time. Management per the primary team. Qualifiers: Chronicity: acute Qualified Code(s): J81.0 - Acute pulmonary edema (4) CKD (chronic kidney disease) stage 3, GFR 30-59 ml/min Current Visit: No Status: Chronic Renal function appears to be at baseline. We will renally dose medications. Continue to monitor renal function. Creatinine clearance 26. (5) Atrial fibrillation Current Visit: Yes Status: Chronic Qualifiers: Atrial fibrillation type: chronic Qualified Code(s): I48.2 - Chronic atrial fibrillation (6) Dementia Current Visit: Yes Status: Chronic Qualifiers: Dementia type: Alzheimer's disease Alzheimer's disease onset: unspecified onset Dementia behavioral disturbance: without behavioral disturbance Qualified Code(s): G30.9 - Alzheimer's disease, unspecified; F02.80 - Dementia in other diseases classified elsewhere without behavioral disturbance (7) Diabetes mellitus Current Visit: Yes Status: Chronic Qualifiers: Diabetes mellitus type: type 2 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 Patient is pleasantly confused. She has no complaints this morning. Infect Dis PN-Objective Data - Labs CBC & Chem 7: 08/27/17 03:42 08/27/17 03:42 Labs: Laboratory Results - last 24 hr 08/26/17 08/26/17 08/26/17 06:51 08:17 08:17 WBC 10.5 RBC 3.52 L Hgb 11.6 Hct 34.5 L MCV 98.0 MCH 33.0 MCHC 33.6 RDW 14.6 H Plt Count 206 MPV 11.0 Immature Gran % 0.6 Seg Neutrophils % 74.7 Lymphocytes % 13.3 Monocytes % 7.7 Eosinophils % 3.3 Basophils % 0.4 Neutrophils # 7.9 Lymphocytes # 1.4 Monocytes # 0.8 Eosinophils # 0.4 Basophils # 0.0 Sodium Potassium Chloride Carbon Dioxide BUN Creatinine Est GFR ( Amer) Est GFR (Non-Af Amer) BUN/Creatinine Ratio Glucose POC Glucose 159 H Calculated Osmolality Calcium Random Vancomycin 17 08/26/17 08/26/17 08/26/17 08:17 11:18 16:07 WBC RBC Hgb Hct MCV MCH MCHC RDW Plt Count MPV Immature Gran % Seg Neutrophils % Lymphocytes % Monocytes % Eosinophils % Basophils % Neutrophils # Lymphocytes # Monocytes # Eosinophils # Basophils # Sodium 136 Potassium 3.4 L Chloride 106 Carbon Dioxide 19 L BUN 19 Creatinine 1.62 H Est GFR ( Amer) 37 L Est GFR (Non-Af Amer) 30 L BUN/Creatinine Ratio 12 Glucose 210 H POC Glucose 280 H 214 H Calculated Osmolality 290 Calcium 9.1 Random Vancomycin 08/26/17 08/27/17 08/27/17 20:10 03:42 03:42 WBC 8.1 RBC 3.30 L Hgb 10.8 L Hct 31.3 L MCV 94.8 MCH 32.7 MCHC 34.5 RDW 14.3 Plt Count 222 MPV 10.9 Immature Gran % 0.7 Seg Neutrophils % 68.2 Lymphocytes % 18.0 Monocytes % 7.9 Eosinophils % 4.8 Basophils % 0.4 Neutrophils # 5.5 Lymphocytes # 1.5 Monocytes # 0.6 Eosinophils # 0.4 Basophils # 0.0 Sodium Potassium Chloride Carbon Dioxide BUN Creatinine Est GFR ( Amer) Est GFR (Non-Af Amer) BUN/Creatinine Ratio Glucose POC Glucose 285 H Calculated Osmolality Calcium Random Vancomycin 15 08/27/17 03:42 WBC RBC Hgb Hct MCV MCH MCHC RDW Plt Count MPV Immature Gran % Seg Neutrophils % Lymphocytes % Monocytes % Eosinophils % Basophils % Neutrophils # Lymphocytes # Monocytes # Eosinophils # Basophils # Sodium 137 Potassium 3.5 Chloride 105 Carbon Dioxide 22 L BUN 21 Creatinine 1.66 H Est GFR ( Amer) 36 L Est GFR (Non-Af Amer) 29 L BUN/Creatinine Ratio 13 Glucose 157 H POC Glucose Calculated Osmolality 290 Calcium 8.9 Random Vancomycin Exam - Constitutional Vitals: Temp Pulse Resp BP Pulse Ox 98.7 F 88 14 137/54 94 08/27/17 07:09 08/27/17 07:09 08/27/17 07:09 08/27/17 07:09 08/27/17 07:09 General appearance: no acute distress, obese - Respiratory Respiratory exam: Present: CTAB. Absent: rales, rhonchi, stridor - Cardiovascular Cardiovascular exam: Present: RRR. Absent: diastolic murmur, gallop, systolic murmur - GI/Abdominal GI/Abdominal exam: Present: soft. Absent: distended, tenderness - Extremities Exam Extremities exam: Present: pedal edema Additional comments: Bilateral lower extremity edema, 2+. Improved from 2 days ago. Mild erythema bilaterally worse on the right. No warmth noted. No areas of induration or drainage noted. - Neurological Exam Neurological exam: Present: alert, altered, no focal deficits - VTE Reasons for not Prescribing Prophylaxis: Not indicated-Anticoagulated or INR therapeutic Consult Discharge Plan - Plan Referrals: Kel Tejeda [Primary Care Provider] - - Attending Attestation I examined this patient and my medical decision-making was reviewed with the Resident Physician. I agree with the documented findings, disposition and treatment plan as described except to the extent set forth below. Patient concerned that the patient is having early pressure ulcers on bilateral heels. We will notify the hospitalist team and nursing to put proper Divya boots or moving the patient every 2 hours or the proper protocol for bed ulcers. Also recommend PTOT and notified the hospitalist team.
[2017-08-27] MEDS ORDERED: levoFLOXacin 500 MG TABLET PO SCH (11:45)
--- NOTE | 2017-08-27 12:24 | Internal Med Progress Note ---
Date of Encounter: 08/27/17 Time of Encounter: 12:23 - Assessment and plan (1) Cellulitis Current Visit: Yes Status: Acute Assessment and plan: R foot redness has improved, ID has been consulted which etiology is unclear infection vs other- will change Lasix back to by mouth and continue to monitor- swelling has improved IV vancomycin and cefepime have been discontinued placed on oral doxycycline 100 mg twice a day and Levaquin 750 mg every other day on discharge to complete a 14 day course No leukocytosis, fevers Continue leg elevation. Consider compression stockings if patient tolerates Anticipate discharge in a.m.-[facility] Qualifiers: Site of cellulitis: extremity Site of cellulitis of extremity: lower extremity Laterality: right Qualified Code(s): L03.115 - Cellulitis of right lower limb (2) UTI (urinary tract infection) Current Visit: Yes Status: Acute Assessment and plan: UA indicative of UTI. Urine culture with Klebsiella pneumoniae. Switch to oral antibiotics doxycycline and Levaquin-this is day 8 of antibiotic treatment this is adequate however she will require prolonged course due to possible right lower extremity cellulitis Qualifiers: Urinary tract infection type: acute cystitis Hematuria presence: without hematuria Qualified Code(s): N30.00 - Acute cystitis without hematuria (3) Atrial fibrillation Current Visit: Yes Status: Chronic Assessment and plan: continue home Rx: atenolol, ASA, eliquis-rate controlled Qualifiers: Atrial fibrillation type: chronic Qualified Code(s): I48.2 - Chronic atrial fibrillation (4) History of stroke with current residual effects Current Visit: Yes Status: Chronic Assessment and plan: Patient is alert and oriented name attempts to follow simple commands on ASA eliquis-hx afib (5) Diabetes mellitus Current Visit: Yes Status: Chronic Assessment and plan: Stable resume oral antidiabetic upon discharge. 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 Diabetes mellitus complication status: with kidney complications Diabetes mellitus complication detail: with chronic kidney disease Chronic kidney disease stage: stage 3 (moderate) Qualified Code(s): E11.22 - Type 2 diabetes mellitus with diabetic chronic kidney disease; N18.3 - Chronic kidney disease, stage 3 (moderate); Z79.4 - [facility] (current) use of insulin (6) Hyperlipidemia Current Visit: Yes Status: Chronic Assessment and plan: continue home meds Qualifiers: Hyperlipidemia type: pure hypercholesterolemia Qualified Code(s): E78.00 - Pure hypercholesterolemia, unspecified; E78.0 - Pure hypercholesterolemia (7) Hypertension Current Visit: Yes Status: Chronic Assessment and plan: Stable at this time continue home medications Qualifiers: Hypertension type: essential hypertension Qualified Code(s): I10 - Essential (primary) hypertension (8) Dementia Current Visit: Yes Status: Chronic Assessment and plan: long standing dementia w/ CVA history. Patient is alert and oriented to name Qualifiers: Dementia type: Alzheimer's disease Alzheimer's disease onset: unspecified onset Dementia behavioral disturbance: without behavioral disturbance Qualified Code(s): G30.9 - Alzheimer's disease, unspecified; F02.80 - Dementia in other diseases classified elsewhere without behavioral disturbance (9) CKD (chronic kidney disease) Current Visit: Yes Status: Acute Assessment and plan: Patient is CKD 3b-4. Cr on admission is 1.79, baseline is 1.6. She is at baseline Monitor intake and output avoid nephrotoxins Qualifiers: Chronic kidney disease stage: stage 3 (moderate) Qualified Code(s): N18.3 - Chronic kidney disease, stage 3 (moderate) (10) Goals of care, counseling/discussion Current Visit: Yes Status: Acute Assessment and plan: Son, Hardy Hoyt [phone], is power of workers compensation attorney. Patient code status is DNR/ DNI/CCA (11) Conjunctivitis Current Visit: Yes Status: Acute Assessment and plan: suspected; improving no redness or drainage noted. Cont ATB eye gtts Qualifiers: Conjunctivitis type: acute Acute conjunctivitis type: viral Laterality: bilateral Qualified Code(s): B30.9 - Viral conjunctivitis, unspecified (12) DVT prophylaxis Current Visit: Yes Status: Acute Assessment and plan: eliquis (13) Pulmonary edema Current Visit: Yes Status: Acute Assessment and plan: CXR did show pulmonary edema- patient has received IVF since admission- 11 L- IVF discontinued- lower extremity edema much improved we will cont with home oral lasix and monitor intake- patient is incontinent of urine daily weights Qualifiers: Chronicity: acute Qualified Code(s): J81.0 - Acute pulmonary edema - Time Spent With Patient Total time spent is greater than 50% in coordination of care (as documented) at patient's floor/unit and/or counseling patient: - Subjective Interval history: Patient seen and examined at bedside, son is at bedside. She is alert and oriented to name. She is pleasant cooperative, interactive. I reviewed treatment plan with son who verbalizes agreement and understanding - Constitutional Vitals: Temp Pulse Resp BP Pulse Ox 97.7 F 78 15 132/64 94 08/27/17 11:08 08/27/17 11:08 08/27/17 11:08 08/27/17 11:08 08/27/17 11:08 General appearance: Present: cooperative, A&O X 1, pleasant, answers questions appropriately - Head Head exam: Present: atraumatic, normocephalic - Eye Eye exam: Present: PERRL, conjuntiva pink, sclera anicteric Pupils: Present: PERRL - Neck Neck exam general surgery: Present: supple, trachea midline. Absent: lymphadenopathy - Respiratory Respiratory exam: Present: rales. Absent: accessory muscle use, rhonchi, wheezes - Cardiovascular Cardiovascular exam: Present: RRR, +S1, +S2. Absent: diastolic murmur, gallop, rubs, systolic murmur - GI/Abdominal GI/Abdominal exam: Present: normal bowel sounds, soft, no peritoneal signs. Absent: distended, tenderness - Extremities Exam Extremities exam: Present: pedal edema, warm, radial pulses palpable and symmetrical. Absent: calf tenderness, cyanotic - Neurological Exam Neurological exam: Present: CN II-XII intact, oriented X3, no focal deficits. Absent: pronater drift, facial droop, speech deficit - Skin Skin exam: Present: dry, intact Internal Medicine: Result - Labs CBC & Chem 7: 08/27/17 03:42 08/27/17 03:42 Labs: Short CBC 08/27/17 Range/Units 03:42 WBC 8.1 (4.3-11.1) K/mcL Hgb 10.8 L (11.5-15.4) g/dL Hct 31.3 L (35.3-44.9) % Plt Count 222 (140-400) K/mcL Neutrophils # 5.5 (1.6-8.9) K/mcL BMP 08/27/17 03:42 Sodium 137 Potassium 3.5 Chloride 105 Carbon Dioxide 22 L BUN 21 Creatinine 1.66 H Glucose 157 H Calcium 8.9 - VTE Reasons for not Prescribing Prophylaxis: Not indicated-Anticoagulated or INR therapeutic Consult Discharge Plan - Plan Referrals: Kel Tejeda [Primary Care Provider] -
[2017-08-27] MEDS ORDERED: Aminoglycoside Consult 1 EACH MC ONE (15:23)
[2017-08-27] MEDS: Furosemide 20 MG TABLET PO SCH (16:29)
[2017-08-27] MEDS ORDERED: Furosemide 20 MG/2 ML VIAL IVP SCH (17:00)
[2017-08-27] MEDS ORDERED: Furosemide 40 MG TABLET PO SCH (17:00)
[2017-08-27] MEDS: Doxycycline 100 MG CAPSULE PO SCH (21:22)
[2017-08-28] MEDS: Ciprofloxacin OPTH Soln 2.5 ML BOTTLE RIGHT EYE SCH ×4 (00:22→12:22)
[2017-08-28] MEDS: Ciprofloxacin OPTH Soln 2.5 ML BOTTLE LEFT EYE SCH ×4 (00:22→12:22)
[2017-08-28 07:28] LABS: Calcium 9.2 mg/dL (8.6-10.3); Potassium 3.4 mEq/L (3.5-5.1)
[2017-08-28 08:25] LABS: Basophils # 0.1 K/mcL (0.0-0.2); Basophils % 0.7 %; Eosinophils # 0.4 K/mcL (0.0-0.6); Eosinophils % 4.9 %; Hematocrit 31.6 % (35.3-44.9); Hemoglobin 10.9 g/dL (11.5-15.4); Immature Granulocytes % 0.7 % (0-4); Lymphocytes # 1.8 K/mcL (0.6-4.6); Lymphocytes % 23.9 %; Mean Corpuscular HGB Conc 34.5 g/dL (31.6-35.5); Mean Corpuscular Hemoglobin 32.7 pg (28.0-33.3); Mean Corpuscular Volume 94.9 fL (83.0-100.0); Mean Platelet Volume 11.2 fL (9.4-12.4); Monocytes # 0.6 K/mcL (0.0-1.3); Monocytes % 8.6 %; Neutrophils # 4.6 K/mcL (1.6-8.9); Platelet Count 238 K/mcL (140-400); Red Blood Count 3.33 M/mcL (3.82-4.97); Red Cell Distribution Width 14.2 % (11.5-14.5); Segmented Neutrophils % 61.2 %
[2017-08-28] MEDS: Insulin LISPRO 300 UNITS/3 ML VIAL SQ SCH ×2 (08:29→12:21)
[2017-08-28] MEDS: Sennosides 8.6 MG TABLET PO SCH (08:30)
[2017-08-28] MEDS: Aspirin Enteric Coated 81 MG Tablet PO SCH (08:30)
[2017-08-28] MEDS: Furosemide 20 MG TABLET PO SCH (08:30)
[2017-08-28] MEDS: Apixaban 2.5 MG TABLET PO SCH (08:31)
[2017-08-28] MEDS: Doxycycline 100 MG CAPSULE PO SCH (08:31)
[2017-08-28] MEDS: Multivit/Ca/Min/Fe/FA 1 TAB TABLET PO SCH (08:31)
[2017-08-28] MEDS: Lactobacillus 1 EACH CAP.SPRINK PO SCH (08:31)
[2017-08-28] MEDS: *HR* OxyCODONE/APAP 5/325 TABLET PO SCH (08:31)
[2017-08-28] MEDS: Ascorbic Acid 500 MG TABLET PO SCH (08:31)
[2017-08-28] MEDS: Bisacodyl 10 MG RECTAL SUPPOSITORY RC SCH (08:44)
--- NOTE | 2017-08-28 09:13 | Discharge Summary ---
- NOTES TO OUTPATIENT PROVIDER Notes to Outpatient Provider: Was seen by infectious disease -cellulitis advised to continue doxycycline and Levaquin for 5 more days to complete 14 days. Monitor renal function. UTI with Klebsiella pneumonia. Diuresed with Lasix Orders not resulted at time of discharge: Pending orders 08/29/17 04:00 CBC [Complete Blood Count] [HEME] AM 0400 Chem 7 [Basic Metabolic Panel] AM 0400 Date of Encounter: 08/28/17 Time of Encounter: 09:13 - Discharge Diagnosis (1) Cellulitis Priority: Primary Status: Acute Qualifiers: Site of cellulitis: extremity Site of cellulitis of extremity: lower extremity Laterality: right Qualified Code(s): L03.115 - Cellulitis of right lower limb (2) UTI (urinary tract infection) Priority: Primary Status: Acute Qualifiers: Urinary tract infection type: acute cystitis Hematuria presence: without hematuria Qualified Code(s): N30.00 - Acute cystitis without hematuria (3) Atrial fibrillation Priority: Secondary Status: Chronic Qualifiers: Atrial fibrillation type: chronic Qualified Code(s): I48.2 - Chronic atrial fibrillation (4) History of stroke with current residual effects Priority: Secondary Status: Chronic (5) Diabetes mellitus Priority: Secondary Status: Chronic Qualifiers: Diabetes mellitus type: type 2 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 Diabetes mellitus complication status: with kidney complications Diabetes mellitus complication detail: with chronic kidney disease Chronic kidney disease stage: stage 3 (moderate) Qualified Code(s): E11.22 - Type 2 diabetes mellitus with diabetic chronic kidney disease; N18.3 - Chronic kidney disease, stage 3 (moderate); Z79.4 - [facility] (current) use of insulin (6) Hyperlipidemia Priority: Secondary Status: Chronic Qualifiers: Hyperlipidemia type: pure hypercholesterolemia Qualified Code(s): E78.00 - Pure hypercholesterolemia, unspecified; E78.0 - Pure hypercholesterolemia (7) Hypertension Priority: Secondary Status: Chronic Qualifiers: Hypertension type: essential hypertension Qualified Code(s): I10 - Essential (primary) hypertension (8) Dementia Priority: Secondary Status: Chronic Qualifiers: Dementia type: Alzheimer's disease Alzheimer's disease onset: unspecified onset Dementia behavioral disturbance: without behavioral disturbance Qualified Code(s): G30.9 - Alzheimer's disease, unspecified; F02.80 - Dementia in other diseases classified elsewhere without behavioral disturbance (9) CKD (chronic kidney disease) Priority: Secondary Status: Acute Qualifiers: Chronic kidney disease stage: stage 3 (moderate) Qualified Code(s): N18.3 - Chronic kidney disease, stage 3 (moderate) (10) Goals of care, counseling/discussion Priority: Secondary Status: Acute (11) Conjunctivitis Priority: Secondary Status: Acute Qualifiers: Conjunctivitis type: acute Acute conjunctivitis type: viral Laterality: bilateral Qualified Code(s): B30.9 - Viral conjunctivitis, unspecified (12) Pulmonary edema Priority: Secondary Status: Acute Qualifiers: Chronicity: acute Qualified Code(s): J81.0 - Acute pulmonary edema Hospital course: Ms. Silva is a 87 year old female past medical history of atrial fibrillation CVA dementia diabetes hyperlipidemia hypertension CK D3 previous cellulitis and UTI patient was admitted on August 19 for cellulitis and urinary tract infection. She resides and a [facility] and was brought in by her son for concerns of right leg cellulitis. She does have a chronic history of cellulitis and was started at the [facility] on doxycycline however it did not improve. She was placed on IV antibiotics and blood cultures were obtained. She was also found to have a UTI urine cultures did show Klebsiella pneumonia. It appears she also had conjunctivitis. She has slight elevation in her creatinine she was given some IV fluids and eventually did exhibit symptoms of fluid overload. She had lower extremity She was diuresed and fluid stay improved. She was seen by infectious disease due to recurrent cellulitis and no improvement despite the use of antibiotics. She completed 8 day course of vancomycin and cefepime. She was switched over to oral doxycycline and Levaquin per infectious disease recommendations. Patient appears to have some breakdown to her left heel. She did have Unaboot placed. She was seen by PT and OT with no new recommendations. She is back to her baseline she is hemodynamically stable. We will [facility] with oral antibiotics of doxycycline and Levaquin for the next 5 days to complete a total 14 day course of antibiotics. Patient is to follow up with primary care physician. Discharge discussed with: family - Time Spent with Patient Total time spent providing and/or coordinating discharge services: - Discharge Medications Home Medications: Apixaban [Eliquis] 2.5 mg PO BID 08/19/17 [History] Ascorbic Acid [Vitamin C with Madelyn Hips] 500 mg PO DAILY 08/19/17 [History] Aspirin [Lo-Dose Aspirin EC] 81 mg PO DAILY 08/19/17 [History] Atenolol [Tenormin] 50 mg PO DAILY 08/19/17 [History] Doxycycline Monohydrate [Okebo] 100 mg PO DAILY 08/19/17 [History] Furosemide [Lasix] 40 mg PO BID 08/19/17 [History] GlipiZIDE [Glipizide Xl] 5 mg PO DAILY 08/19/17 [History] Insulin ASPART [Novolog Flexpen] 7 unit SQ 0800 08/19/17 [History] Insulin ASPART [Novolog Flexpen] 12 unit SQ 1700 08/19/17 [History] Insulin ASPART [Novolog Flexpen] 15 unit SQ 1200 08/19/17 [History] Insulin DETEMIR [Levemir Flextouch] 25 unit SQ 2000 08/19/17 [History] Lactobacillus Acidophilus [Acidophilus Lactobacillus] 1 cap PO BID 08/19/17 [ History] Memantine HCl 10 mg PO BID 08/19/17 [History] Multivit-Min/FA/Lycopen/Lutein [A Thru Z Select Multivit Tab] 1 tab PO DAILY [History] Oxycodone HCl/Acetaminophen [Percocet 5-325 mg Tablet] 0.5 tab PO BID 08/19/17 [ History] Polyethylene Glycol 3350 [MiraLAX Powder Bulk 17.9 Oz] 1 scoop PO DAILY [History] Potassium Chloride [Klor-Con 10] 10 meq PO DAILY 08/19/17 [History] Sennosides [Senna] 17.2 mg PO BID 08/19/17 [History] Ciprofloxacin OPTH Soln [Ciloxan OPTH Soln] 2 drop LEFT EYE Q4HR 5 Days bottle 08/28/17 [Rx] Ciprofloxacin OPTH Soln [Ciloxan OPTH Soln] 2 drop RIGHT EYE Q4HR 5 Days bottle 08/28/17 [Rx] Doxycycline 100 mg PO BID 5 Days capsule 08/28/17 [Rx] levoFLOXacin [Levaquin] 500 mg PO Q48H 5 Days tablet 08/28/17 [Rx] Allergies/Adverse Reactions: 3 Allergy/AdvReac Type Severity Reaction Status Date / Time Sulfa (Sulfonamide Allergy Hives Verified 08/19/17 16:20 Antibiotics) Date of admission: 08/19/17 18:28 Primary care physician: Kel Tejeda Consults: 08/20/17 08:54 Consult to Ice Cream Vendor [CONS] Routine Reason for SW Consult: patient from [facility] 08/24/17 15:33 Consult to Infectious Diseases [CONS] Routine Consulting Provider: Infectious Disease Kerry Reason for Consult: cellulits Time Notified: 15:33 Call Completed: Yes 08/27/17 12:06 Consult to Physical Therapy [CONS] Routine Comment: Evaluate, develop and implement POC Reason for Consult: debility Does patient have active BEDREST order?: No Is patient medically & hemodynamically stable?: Yes Patient assessed for mobility or mobilized this visit?: Yes Discharging clinician: Ally Wheeler Anticipated date of discharge: 08/28/17 - Constitutional Vitals: Temp Pulse Resp BP Pulse Ox 97.5 F L 82 20 159/85 95 08/28/17 07:39 08/28/17 07:39 08/28/17 07:39 08/28/17 07:39 08/28/17 08:45 General appearance: Present: cooperative, A&O X 1, pleasant, answers questions appropriately - Head Head exam: Present: atraumatic, normocephalic - Eye Eye exam: Present: PERRL, conjuntiva pink, sclera anicteric Pupils: Present: PERRL - Neck Neck exam general surgery: Present: supple, trachea midline. Absent: lymphadenopathy - Respiratory Respiratory exam: Present: CTAB. Absent: accessory muscle use, rales, rhonchi, wheezes - Cardiovascular Cardiovascular exam: Present: RRR, +S1, +S2. Absent: diastolic murmur, gallop, rubs, systolic murmur - GI/Abdominal GI/Abdominal exam: Present: normal bowel sounds, soft, no peritoneal signs. Absent: distended, tenderness - Extremities Exam Extremities exam: Present: warm, radial pulses palpable and symmetrical. Absent : calf tenderness, cyanotic, pedal edema - Patient Status Disposition: Transfer SNF Condition: Good Functional capacity at discharge: bed bound Overall status at discharge: patient is not back to baseline - Discharge Instructions Follow Up With: Kel Tejeda [Primary Care Provider] - - Diet and Activity Activity: as per physical therapy Diet: diabetic diet - VTE Reasons for not Prescribing Prophylaxis: Not indicated-Anticoagulated or INR therapeutic
[2017-08-28 11:11] VITALS: BP 129/75
--- NOTE | 2017-08-28 13:21 | Physician Discharge Referral ---
ExtendedCare Referral Info Transfer To: [facility] Provider in Charge: Liam Canales Provider in Charge after Transfer: PCP Institutional Level of Care: Skilled - Diagnosis (1) Cellulitis Priority: Primary Status: Acute (2) UTI (urinary tract infection) Priority: Primary Status: Acute (3) Atrial fibrillation Priority: Secondary Status: Chronic (4) History of stroke with current residual effects Priority: Secondary Status: Chronic (5) Diabetes mellitus Priority: Secondary Status: Chronic (6) Hyperlipidemia Priority: Secondary Status: Chronic (7) Hypertension Priority: Secondary Status: Chronic (8) Dementia Priority: Secondary Status: Chronic (9) CKD (chronic kidney disease) Priority: Secondary Status: Acute (10) Goals of care, counseling/discussion Priority: Secondary Status: Acute (11) Conjunctivitis Priority: Secondary Status: Acute (12) Pulmonary edema Priority: Secondary Status: Acute Prognosis: Fair Aware of Diagnosis: Family Aware of Prognosis: Family - Transfer Medications Home Medications: Apixaban [Eliquis] 2.5 mg PO BID 08/19/17 [History] Ascorbic Acid [Vitamin C with Madelyn Hips] 500 mg PO DAILY 08/19/17 [History] Aspirin [Lo-Dose Aspirin EC] 81 mg PO DAILY 08/19/17 [History] Atenolol [Tenormin] 50 mg PO DAILY 08/19/17 [History] Doxycycline Monohydrate [Okebo] 100 mg PO DAILY 08/19/17 [History] Furosemide [Lasix] 40 mg PO BID 08/19/17 [History] GlipiZIDE [Glipizide Xl] 5 mg PO DAILY 08/19/17 [History] Insulin ASPART [Novolog Flexpen] 7 unit SQ 0800 08/19/17 [History] Insulin ASPART [Novolog Flexpen] 12 unit SQ 1700 08/19/17 [History] Insulin ASPART [Novolog Flexpen] 15 unit SQ 1200 08/19/17 [History] Insulin DETEMIR [Levemir Flextouch] 25 unit SQ 2000 08/19/17 [History] Lactobacillus Acidophilus [Acidophilus Lactobacillus] 1 cap PO BID 08/19/17 [ History] Memantine HCl 10 mg PO BID 08/19/17 [History] Multivit-Min/FA/Lycopen/Lutein [A Thru Z Select Multivit Tab] 1 tab PO DAILY [History] Oxycodone HCl/Acetaminophen [Percocet 5-325 mg Tablet] 0.5 tab PO BID 08/19/17 [ History] Polyethylene Glycol 3350 [MiraLAX Powder Bulk 17.9 Oz] 1 scoop PO DAILY [History] Potassium Chloride [Klor-Con 10] 10 meq PO DAILY 08/19/17 [History] Sennosides [Senna] 17.2 mg PO BID 08/19/17 [History] Ciprofloxacin OPTH Soln [Ciloxan OPTH Soln] 2 drop LEFT EYE Q4HR 5 Days bottle 08/28/17 [Rx] Ciprofloxacin OPTH Soln [Ciloxan OPTH Soln] 2 drop RIGHT EYE Q4HR 5 Days bottle 08/28/17 [Rx] Doxycycline 100 mg PO BID 5 Days capsule 08/28/17 [Rx] levoFLOXacin [Levaquin] 500 mg PO Q48H 5 Days tablet 08/28/17 [Rx] Allergies/Adverse Reactions: 3 Allergy/AdvReac Type Severity Reaction Status Date / Time Sulfa (Sulfonamide Allergy Hives Verified 08/19/17 16:20 Antibiotics) - Respiratory Orders Smoking Cessation: Smoking cessation has been advised. For more information, call the [place] Tobacco Quit Line at 4-863-ZARENOW. - Ancillary Orders May use pressure relief devices daily prn - Rehabiliation Orders Rehab Potential: Fair Rehab Orders: Evaluation for Physical Therapy, Evaluation for Occupational Therapy - Treatments Skin tear care topically daily PRN per policy - Diet Orders No Concentrated Sweets CERTIFICATION: I certify that the transfer of the above named patient to an Extended Care Facility is necessary for the continuing treatment of the diagnosis listed. The above information is true and accurate reflection of patient's current condition. Confidential - Redisclosure prohibited without a patient's written consent.
== END 2017-08-28 15:24 ==
LOC: 3BNU 16:00 → EMEROO 16:00 → 3BNU 19:07
PROVIDERS: ADMIT General Practice; ATTEND General Practice

== ENCOUNTER 2018-03-18 07:20 | Observation (INO) ==
--- NOTE | 2018-03-18 07:32 | Emergency Department Note ---
Disposition Clinical Impression: Pneumonia Qualifiers: Pneumonia type: due to unspecified organism Laterality: unspecified laterality Lung location: unspecified part of lung Qualified Code(s): J18.9 - Pneumonia, unspecified organism Disposition: Admitted As Inpatient Condition: Good Referrals: NONE,PCP [Primary Care Provider] - Forms: ED Satisfaction Letter General Adult HPI - General Chief complaint: ED Shortness of Breath/Dyspnea Stated complaint: flu like symptoms, low O2 Time Seen by Provider: 03/18/18 07:21 Source: EMS Limitations: no limitations Nursing Notes Reviewed: Yes Vital Signs Reviewed: Yes - History of Present Illness HPI Narrative: Patient with a history of Alzheimer's, dysphasia, diabetes, chronic kidney disease brought in by EMS from [facility], DNR CCA arrest here for evaluation of cough and fever. Symptoms started yesterday with cough. Patient spiked a temperature last night of 102. On arrival EMS found pulse ox 90%. No previous history of lung disease or oxygen requirement. The patient had improvement of her overall symptoms with 4 L nasal cannula bringing her pulse ox to 98%. Patient knows her name but does not know where she is at or the year. On physical exam she has mildly dry mucous membranes with a left heel wound that appears to be superficial in nature with no significant erythema or purulent drainage as well as mild skin rate down to the buttocks that is approximately 1 mm x 1 cm in length and related to a possible abrasion. No significant purulence or signs of infection. Patient will undergo further evalu ation for overall sepsis including lactate, blood cultures, influenza, chest x- ray, urinalysis. Lab work is pending. Patient will likely be admitted for further workup and treatment. Pain Scale: 0 - Related Data Home Medications Medication Instructions Recorded Confirmed Apixaban [Eliquis] 2.5 mg PO BID 08/19/17 08/19/17 Ascorbic Acid [Vitamin C with Madelyn 500 mg PO DAILY 08/19/17 08/19/17 Hips] Aspirin [Lo-Dose Aspirin EC] 81 mg PO DAILY 08/19/17 08/19/17 Atenolol [Tenormin] 50 mg PO DAILY 08/19/17 08/19/17 Doxycycline Monohydrate [Okebo] 100 mg PO DAILY 08/19/17 08/19/17 Furosemide [Lasix] 40 mg PO BID 08/19/17 08/19/17 GlipiZIDE [Glipizide Xl] 5 mg PO DAILY 08/19/17 08/19/17 Insulin ASPART [Novolog Flexpen] 7 unit SQ 0800 08/19/17 08/19/17 Insulin ASPART [Novolog Flexpen] 12 unit SQ 1700 08/19/17 08/19/17 Insulin ASPART [Novolog Flexpen] 15 unit SQ 1200 08/19/17 08/19/17 Insulin DETEMIR [Levemir Flextouch] 25 unit SQ 2000 08/19/17 08/19/17 Lactobacillus Acidophilus 1 cap PO BID 08/19/17 08/19/17 [Acidophilus Lactobacillus] Memantine HCl 10 mg PO BID 08/19/17 08/19/17 Multivit-Min/FA/Lycopen/Lutein [A 1 tab PO DAILY 08/19/17 08/19/17 Thru Z Select Multivit Tab] Oxycodone HCl/Acetaminophen 0.5 tab PO BID 08/19/17 08/19/17 [Percocet 5-325 mg Tablet] Polyethylene Glycol 3350 [MiraLAX 1 scoop PO DAILY 08/19/17 08/19/17 Powder Bulk 17.9 Oz] Potassium Chloride [Klor-Con 10] 10 meq PO DAILY 08/19/17 08/19/17 Sennosides [Senna] 17.2 mg PO BID 08/19/17 08/19/17 Previous Rx's Medication Instructions Recorded Ciprofloxacin OPTH Soln [Ciloxan 2 drop LEFT EYE Q4HR 5 Days bottle 08/28/17 OPTH Soln] Ciprofloxacin OPTH Soln [Ciloxan 2 drop RIGHT EYE Q4HR 5 Days 08/28/17 OPTH Soln] bottle Doxycycline 100 mg PO BID 5 Days capsule 08/28/17 levoFLOXacin [Levaquin] 500 mg PO Q48H 5 Days tablet 08/28/17 Allergies Allergy/AdvReac Type Severity Reaction Status Date / Time Sulfa (Sulfonamide Allergy Hives Verified 08/19/17 16:20 Antibiotics) Limitations: ROS unobtainable due to patients medical condition Past Medical History - Past Medical History Medical history: Reports: atrial fibrillation, CVA, dementia, diabetes, hyperlipidemia, hypertension, renal disease, other Surgical history: Reports: no surgical history, cholecystectomy, hysterectomy Psychiatric history: Reports: no psych history 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 Head: Normocephalic Atraumatic Eyes: PERRL, EOMI ENT: Airway patent, no stridor; dry mucous membranes Neck: supple, no meningismus Chest: Lungs clear to auscultation bilateral Cardiac: Regular rate and rhythm, no murmurs, rubs or gallops Abdomen: soft, nontender, nondistended; no guarding, rebound, or tenderness to percussion Musculoskeletal: Calves symmetric, nontender, mild +1 pitting edema to the feet bilaterally Skin: Mild skin breakdown to the right gluteus as well as the left heel. Neuro: Alert and Oriented to person, but not place, and time; No obvious focal deficit - General Limitations: no limitations General appearance: alert Course - Reevaluation(s) Reevaluation #1: Family has brought to bedside. We did discuss her case. Patient is resting comfortably in bed and easily arousable. Patient's workup is otherwise unremarkable. No significant leukocytosis. Patient was febrile with tachycardia. Presumed source is pneumonia given her history of cough 2 days as well as dysphasia. Patient will be admitted for antibiotics and further observation. - Consultations Consultation #1: Discussed with the resident working with hospitalist Dr. Abreu Patient accepted for admission. Vital Signs Temperature 101.4 F H 03/18/18 07:22 Pulse Rate 113 03/18/18 07:22 Respiratory Rate 20 03/18/18 07:22 Blood Pressure 128/65 03/18/18 07:22 O2 Sat by Pulse Oximetry 95 03/18/18 07:22 Temperature 98.2 F 03/18/18 09:36 Pulse Rate 95 03/18/18 09:36 Respiratory Rate 18 03/18/18 09:36 Blood Pressure 140/77 03/18/18 09:36 O2 Sat by Pulse Oximetry 96 03/18/18 09:36 Oxygen Delivery Oxygen Delivery Nasal Cannula Medical Decision Making - Medical Records Medical records reviewed: Yes I reviewed the patient's medical records. - Lab Data Lab results reviewed: Yes I reviewed the patient's lab results. Result diagrams: 03/18/18 08:29 03/18/18 07:44 Lab Results 03/18/18 03/18/18 03/18/18 Range/Units 07:41 07:44 07:44 WBC (4.3-11.1) K/mcL RBC (3.82-4.97) M/mcL Hgb (11.5-15.4) g/dL Hct (35.3-44.9) % MCV (83.0-100.0) fL MCH (28.0-33.3) pg MCHC (31.6-35.5) g/dL RDW (11.5-14.5) % Plt Count (140-400) K/mcL MPV (9.4-12.4) fL Immature Gran % (0-4) % Seg Neutrophils % % Lymphocytes % % Monocytes % % Eosinophils % % Basophils % % Neutrophils # (1.6-8.9) K/mcL Lymphocytes # (0.6-4.6) K/mcL Monocytes # (0.0-1.3) K/mcL Eosinophils # (0.0-0.6) K/mcL Basophils # (0.0-0.2) K/mcL Sodium 135 L (136-145) mEq/L Potassium 3.7 (3.5-5.1) mEq/L Chloride 102 (98-107) mEq/L Carbon Dioxide 27 (23-29) mEq/L BUN 17 (8-23) mg/dL Creatinine 1.17 (0.60-1.20) mg/dL Est GFR ( Amer) 53 L (> 60) Est GFR (Non-Af Amer) 44 L (> 60) BUN/Creatinine Ratio 15 (6-26) Glucose 117 H (70-105) mg/dL POC Glucose 119 H (70-99) mg/dL Calculated Osmolality 283 (280-300) Lactic Acid 1.2 (0.5-2.2) mmol/L Calcium 9.2 (8.6-10.3) mg/dL Troponin I < 0.03 (< 0.04) ng/mL Urine Color (Yellow) Urine Clarity (Clear) Urine pH (5.0-8.0) pH Units Ur Specific [place] (1.010-1.025) Urine Protein (Neg-Trace) mg/dL Urine Glucose (UA) (Normal) mg/dL Urine Ketones (Negative) mg/dL Urine Blood (Negative) Urine Nitrite (Negative) Urine Bilirubin (Negative) Urine Urobilinogen (Normal) mg/dL Ur Leukocyte Esterase (Negative) Urine Microscopic RBC (0-3) per hpf Urine Microscopic WBC (0-3) per hpf Ur Squamous Epith Cells (None-Few) per lpf Urine Bacteria (None-Few) per hpf Hyaline Casts (None-Few) per lpf Ur Culture Indicated? (NO) Specimen Rejected 03/18/18 03/18/18 03/18/18 Range/Units 07:44 08:29 09:24 WBC 6.7 (4.3-11.1) K/mcL RBC 4.11 (3.82-4.97) M/mcL Hgb 12.8 (11.5-15.4) g/dL Hct 37.7 (35.3-44.9) % MCV 91.7 (83.0-100.0) fL MCH 31.1 (28.0-33.3) pg MCHC 34.0 (31.6-35.5) g/dL RDW 14.2 (11.5-14.5) % Plt Count 168 (140-400) K/mcL MPV 10.7 (9.4-12.4) fL Immature Gran % 0.4 (0-4) % Seg Neutrophils % 63.1 % Lymphocytes % 23.7 % Monocytes % 9.4 % Eosinophils % 3.0 % Basophils % 0.4 % Neutrophils # 4.2 (1.6-8.9) K/mcL Lymphocytes # 1.6 (0.6-4.6) K/mcL Monocytes # 0.6 (0.0-1.3) K/mcL Eosinophils # 0.2 (0.0-0.6) K/mcL Basophils # 0.0 (0.0-0.2) K/mcL Sodium (136-145) mEq/L Potassium (3.5-5.1) mEq/L Chloride (98-107) mEq/L Carbon Dioxide (23-29) mEq/L BUN (8-23) mg/dL Creatinine (0.60-1.20) mg/dL Est GFR ( Amer) (> 60) Est GFR (Non-Af Amer) (> 60) BUN/Creatinine Ratio (6-26) Glucose (70-105) mg/dL POC Glucose (70-99) mg/dL Calculated Osmolality (280-300) Lactic Acid (0.5-2.2) mmol/L Calcium (8.6-10.3) mg/dL Troponin I (< 0.04) ng/mL Urine Color Yellow (Yellow) Urine Clarity Clear (Clear) Urine pH 5.5 (5.0-8.0) pH Units Ur Specific [place] 1.010 (1.010-1.025) Urine Protein Negative (Neg-Trace) mg/dL Urine Glucose (UA) Normal (Normal) mg/dL Urine Ketones Negative (Negative) mg/dL Urine Blood Negative (Negative) Urine Nitrite Negative (Negative) Urine Bilirubin Negative (Negative) Urine Urobilinogen Normal (Normal) mg/dL Ur Leukocyte Esterase Small H (Negative) Urine Microscopic RBC 0-3 (0-3) per hpf Urine Microscopic WBC 3-5 H (0-3) per hpf Ur Squamous Epith Cells Many H (None-Few) per lpf Urine Bacteria Moderate H (None-Few) per hpf Hyaline Casts None Seen (None-Few) per lpf Ur Culture Indicated? NO. A (NO) Specimen Rejected MCV Delta - Radiology Data Radiology results reviewed: Yes I reviewed the patient's radiology results. - EKG Data EKG #1 EKG attestation: Yes I reviewed and interpreted this EKG. EKG results narrative: EKG shows atrial fibrillation with a heart rate of 102. QRS 131. QTC 486 there is no significant ST elevations or depressions. T waves in V1 and V2 are inverted compared to prior EKG of 08/19/17 which also shows atrial fibrillation.
[2018-03-18] MEDS ORDERED: 0.9 % Sodium Chloride 500 ML IVC ONE (07:36)
[2018-03-18] MEDS ORDERED: Acetaminophen 325 MG TABLET PO STA (07:36)
[2018-03-18] MEDS ORDERED: Acetaminophen 650 MG RECTAL SUPP RC STA (08:02)
[2018-03-18 08:19] LABS: BUN/Creatinine Ratio 15 (6-26); Blood Urea Nitrogen 17 mg/dL (8-23); Calcium 9.2 mg/dL (8.6-10.3); Carbon Dioxide 27 mEq/L (23-29); Chloride 102 mEq/L (98-107); Glucose 117 mg/dL (70-105); Osmolality,Calculated 283 (280-300); Potassium 3.7 mEq/L (3.5-5.1); Sodium 135 mEq/L (136-145); eGFR For Non-African Americans 44 (> 60)
[2018-03-18 08:20] LABS: Troponin I < 0.03 ng/mL (< 0.04)
[2018-03-18 09:02] LABS: Basophils % 0.4 %; Eosinophils # 0.2 K/mcL (0.0-0.6); Hematocrit 37.7 % (35.3-44.9); Hemoglobin 12.8 g/dL (11.5-15.4); Immature Granulocytes % 0.4 % (0-4); Lymphocytes # 1.6 K/mcL (0.6-4.6); Lymphocytes % 23.7 %; Mean Corpuscular Hemoglobin 31.1 pg (28.0-33.3); Mean Corpuscular Volume 91.7 fL (83.0-100.0); Mean Platelet Volume 10.7 fL (9.4-12.4); Monocytes # 0.6 K/mcL (0.0-1.3); Monocytes % 9.4 %; Neutrophils # 4.2 K/mcL (1.6-8.9); Platelet Count 168 K/mcL (140-400); Red Blood Count 4.11 M/mcL (3.82-4.97); Red Cell Distribution Width 14.2 % (11.5-14.5); Segmented Neutrophils % 63.1 %
[2018-03-18] MEDS ORDERED: 0.9 % Sodium Chloride 1,000 ML IVC SCH (09:15)
[2018-03-18] MEDS ORDERED: Levofloxacin 750 MG/150 ML 750 MG/150 ML BAG IVPB ONE (09:35)
[2018-03-18 09:44] LABS: Bilirubin,Urine Negative (Negative); Blood,Urine Negative (Negative); Clarity,Urine Clear (Clear); Color,Urine Yellow (Yellow); Glucose,Urine (UA) Normal (Normal); Ketones,Urine Negative (Negative); Leukocyte Esterase,Urine Small (Negative); Nitrite,Urine Negative (Negative); PH,Urine 5.5 pH Units (5.0-8.0); Protein,Urine Negative (Neg-Trace); Urobilinogen,Urine Normal (Normal)
[2018-03-18 09:46] LABS: Bacteria,Urine Moderate per hpf (None-Few); Hyaline Casts,Urine None Seen per lpf (None-Few); RBC,Urine 0-3 per hpf (0-3); Squamous Epithelial Cell,Urine Many per lpf (None-Few)
[2018-03-18] MEDS ORDERED: Cefepime HCl 1,000 MG in 0.9 % Sodium Chloride Mini Bag 100 ML IVPB ONE (09:51)
[2018-03-18] MEDS ORDERED: Naloxone 0.4 MG/ML INJ IVP PRN (11:08)
--- NOTE | 2018-03-18 11:32 | Internal Med History&Physical ---
<Lori Tapia - Last Filed: 03/18/18 12:28> Date of Encounter: 03/18/18 Time of Encounter: 11:26 Internal Medicine - H&P: HPI Chief complaint: cough Admitted From: Emergency Dept Plans for Post Hospital Care: Transfer [facility] History of present illness: Ms. 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 Patient is a [facility] a [facility]. She was brought in today with concerns for fever of 102 with the [facility], and significant coughing that kept her up throughout the night. Patient's granddaughter and son were at bedside and most of history was obtained from them. They reported that patient was not having any nausea, vomiting, diarrhea. They are concerned about increased confusion, lethargy, and states that she has overall not been feeling very well. Further review of systems was not obtainable due to patient's baseline underlying dementia. Past Med Surg Social Fam HX - Past Medical History Medical history: atrial fibrillation, CVA, dementia, diabetes, hyperlipidemia, hypertension, renal disease, other Additional medical history: anemia, alzheimers disease Psychiatric history: no psych history - Past Surgical History Surgical History: no surgical history, cholecystectomy, hysterectomy Additional surgical history: orthopedic surgery - Social History Smoking Status: Never smoker Smokeless Tobacco Status: No Alcohol use: none Drug use: none - Family History Brother Living Status: Internal Medicine - H&P: Meds Apixaban [Eliquis] 2.5 mg PO 0700,199908/19/17 [History] Ascorbic Acid [Vitamin C with Madelyn Hips] 500 mg PO 0800 08/19/17 [History] Aspirin [Lo-Dose Aspirin EC] 81 mg PO 0800 08/19/17 [History] Furosemide [Lasix] 40 mg PO 0800,1700 08/19/17 [History] Insulin ASPART [Novolog Flexpen] 7 unit SQ 0800 08/19/17 [History] Insulin ASPART [Novolog Flexpen] 12 [place] [address]/19/17 [History] Insulin ASPART [Novolog Flexpen] 15 unit SQ 1200 08/19/17 [History] Insulin DETEMIR [Levemir Flextouch] 25 unit SQ 199908/19/17 [History] Memantine HCl 10 mg PO 0700,1800 08/19/17 [History] Multivit-Min/FA/Lycopen/Lutein [A Thru Z Select Multivit Tab] 1 tab PO 0800 08/19/17 [History] Oxycodone HCl/Acetaminophen [Percocet 5-325 mg Tablet] 0.5 tab PO 0900,199908/19/17 [History] Polyethylene Glycol 3350 [MiraLAX Powder Bulk 17.9 Oz] 17 gm PO 0800 08/19/17 [History] Potassium Chloride [Klor-Con 10] 10 meq PO 0800 08/19/17 [History] Amlodipine Besylate 2.5 mg PO 0800 03/18/18 [History] Bisacodyl [Woman's Laxative] 5 mg PO 0800 03/18/18 [History] Carbamide Peroxide [Ear Drops] 3 drop BOTH EARS 0703/18/18 [History] Glucagon,Human Recombinant [Glucagon Emergency Kit] 1 mg IJ AD 03/18/18 [History] Lactobacillus Acidophilus [Acidophilus Lactobacilli] 1 each PO 0700,199903/18/18 [History] Magnesium Hydroxide [Milk of Magnesia] 2,400 mg PO DAILY PRN 03/18/18 [History] Metoprolol [Lopressor] 25 mg PO 0700,199903/18/18 [History] Nystatin POWDER [Nystop] 1 appl TP BID PRN 03/18/18 [History] Sennosides [Senokot] 17.2 mg PO 0800,1700 03/18/18 [History] Allergy/AdvReac Type Severity Reaction Status Date / Time Sulfa (Sulfonamide Allergy Hives Verified 03/18/18 12:10 Antibiotics) ROS unobtainable: due to mental status All Systems PM: A 10-system review of systems was performed and is negative for pertinent findings except as documented above in the HPI. - Constitutional Vitals: Temp Pulse Resp BP Pulse Ox 98.2 F 95 18 140/77 96 03/18/18 09:36 03/18/18 09:36 03/18/18 09:36 03/18/18 09:36 03/18/18 09:36 General appearance: Present: A&O X 0 Exam: General: alert and orientd x0, does not answer questions. appears to be in no acute distress. vital signs stable. CV: irregular rhythm. no murmurs, rubs, gallops. Respiratory: overall decreased breath sounds in all lung [place]. no wheezing, rales noted. Abdomen: soft, non distended. mild tenderness to palpation diffusely. Extremities: +2 bilateral lower extremity pitting edema. skin: pressure ulcer present at the heel of left lower extremity. MSK: significantly decreased muscle strength in all extremities. more prominent on left than right. Internal Med - H&P Results - Labs CBC & Chem 7: 03/18/18 08:29 03/18/18 07:44 Labs: Short CBC 03/18/18 Range/Units 08:29 WBC 6.7 (4.3-11.1) K/mcL Hgb 12.8 (11.5-15.4) g/dL Hct 37.7 (35.3-44.9) % Plt Count 168 (140-400) K/mcL Neutrophils # 4.2 (1.6-8.9) K/mcL BMP 03/18/18 07:44 Sodium 135 L Potassium 3.7 Chloride 102 Carbon Dioxide 27 BUN 17 Creatinine 1.17 Glucose 117 H Calcium 9.2 Cardiac Enzymes 03/18/18 Range/Units 07:44 Troponin I < 0.03 (< 0.04) ng/mL Urine 03/18/18 Range/Units 09:24 Urine Color Yellow (Yellow) Urine Clarity Clear (Clear) Urine pH 5.5 (5.0-8.0) pH Units Ur Specific [place] 1.010 (1.010-1.025) Urine Protein Negative (Neg-Trace) mg/dL Urine Glucose (UA) Normal (Normal) mg/dL - Impressions ITS Impressions Chest X-Ray 03/18/18 07:35 IMPRESSION: Low lung volumes. No acute cardiopulmonary disease D/ / Ramon Carrera MD / Ramon Carrera MD Interpreting Provider: Ramon Carrera MD - Assessment and plan (1) History of stroke with current residual effects Current Visit: No Status: Chronic Assessment and plan: residual left sided deficits (2) Afib Current Visit: No Status: Acute Assessment and plan: continue metoprolol and eliquis Qualifiers: Atrial fibrillation type: paroxysmal Qualified Code(s): I48.0 - Paroxysmal atrial fibrillation (3) Diabetes mellitus Current Visit: No Status: Chronic Assessment and plan: low dose sliding scale insulin, ADA diet Qualifiers: Diabetes mellitus type: type 2 Diabetes mellitus correction insulin use: with correction use Diabetes mellitus complication status: with kidney complications Diabetes mellitus complication detail: with chronic kidney disease Chronic kidney disease stage: stage 3 (moderate) Qualified Code(s): E11.22 - Type 2 diabetes mellitus with diabetic chronic kidney disease; N18.3 - Chronic kidney disease, stage 3 (moderate); Z79.4 - terminal clerk (current) use of insulin (4) Hyperlipidemia Current Visit: No Status: Chronic Qualifiers: Hyperlipidemia type: pure hypercholesterolemia Qualified Code(s): E78.00 - Pure hypercholesterolemia, unspecified; E78.0 - Pure hypercholesterolemia (5) Hypertension Current Visit: No Status: Chronic Assessment and plan: continue home meds Qualifiers: Hypertension type: essential hypertension Qualified Code(s): I10 - Essential (primary) hypertension (6) CKD (chronic kidney disease) stage 3, GFR 30-59 ml/min Current Visit: No Status: Chronic Assessment and plan: kidney function at baseline. continue to monitor. (7) DVT prophylaxis Current Visit: No Status: Acute Assessment and plan: continue Eliquis (8) Healthcare-associated pneumonia Current Visit: Yes Status: Suspected Assessment and plan: 87-year-old female presents from [facility] with complaints of fevers and significant coughing. There is also some increased confusion. Chest x-ray did not show focal consolidation in ED patient received cefepime and Levaquin with 1 L bolus and maintenance fluids. Flu screen negative Plan: Suspect healthcare associated pneumonia versus bronchitis. No consolidation seen on text x-ray. Will repeat x-ray tomorrow after fluids given. Continue vancomycin, Zosyn, Levaquin will do nasal MRSA screen. If negative, discontinued vancomycin. Respiratory infectious panel pending blood cultures pending D/C maintenance fluids to avoid overload. - Time Spent With Patient Total time spent is greater than 50% in coordination of care (as documented) at patient's floor/unit and/or counseling patient: <Kelly Abreu - Last Filed: 03/18/18 13:18> Date of Encounter: 03/18/18 Time of Encounter: 10:40 Internal Medicine - H&P: HPI Admitted From: Emergency Dept History of present illness: Ms. Silva is a 87 year old female Past Med Surg Social Fam HX - Past Medical History Attestation: Yes The following information was validated with the patient. Source: patient - Additional Family History Additional family history: Family history reviewed and found to be noncontributory at this time All Systems PM: A 10-system review of systems was performed and is negative for pertinent findings except as documented above in the HPI. - Constitutional Vitals: Temp Pulse Resp BP Pulse Ox 98.6 F 91 17 114/72 100 03/18/18 12:58 03/18/18 12:58 03/18/18 12:58 03/18/18 12:58 03/18/18 12:58 Internal Med - H&P Results - Labs CBC & Chem 7: 03/18/18 08:29 03/18/18 07:44 Labs: Short CBC 03/18/18 Range/Units 08:29 WBC 6.7 (4.3-11.1) K/mcL Hgb 12.8 (11.5-15.4) g/dL Hct 37.7 (35.3-44.9) % Plt Count 168 (140-400) K/mcL Neutrophils # 4.2 (1.6-8.9) K/mcL BMP 03/18/18 07:44 Sodium 135 L Potassium 3.7 Chloride 102 Carbon Dioxide 27 BUN 17 Creatinine 1.17 Glucose 117 H Calcium 9.2 Cardiac Enzymes 03/18/18 Range/Units 07:44 Troponin I < 0.03 (< 0.04) ng/mL Urine 03/18/18 Range/Units 09:24 Urine Color Yellow (Yellow) Urine Clarity Clear (Clear) Urine pH 5.5 (5.0-8.0) pH Units Ur Specific [place] 1.010 (1.010-1.025) Urine Protein Negative (Neg-Trace) mg/dL Urine Glucose (UA) Normal (Normal) mg/dL - Impressions ITS Impressions Chest X-Ray 03/18/18 07:35 IMPRESSION: Low lung volumes. No acute cardiopulmonary disease D/ / Ramon Carrera MD / Ramon Carrera MD Interpreting Provider: Ramon Carrera MD - Assessment and plan (1) Healthcare-associated pneumonia Current Visit: Yes Status: Suspected (2) History of stroke with current residual effects Current Visit: No Status: Chronic (3) Diabetes mellitus Current Visit: No Status: Chronic Qualifiers: Diabetes mellitus type: type 2 Diabetes mellitus equipment worker insulin use: with correction use Diabetes mellitus complication status: with kidney complications Diabetes mellitus complication detail: with chronic kidney disease Chronic kidney disease stage: stage 3 (moderate) Qualified Code(s): E11.22 - Type 2 diabetes mellitus with diabetic chronic kidney disease; N18.3 - Chronic kidney disease, stage 3 (moderate); Z79.4 - terminal clerk (current) use of insulin (4) Hyperlipidemia Current Visit: No Status: Chronic Qualifiers: Hyperlipidemia type: pure hypercholesterolemia Qualified Code(s): E78.00 - Pure hypercholesterolemia, unspecified; E78.0 - Pure hypercholesterolemia (5) Hypertension Current Visit: No Status: Chronic Qualifiers: Hypertension type: essential hypertension Qualified Code(s): I10 - Essential (primary) hypertension (6) CKD (chronic kidney disease) stage 3, GFR 30-59 ml/min Current Visit: No Status: Chronic (7) Afib Current Visit: No Status: Acute Qualifiers: Atrial fibrillation type: paroxysmal Qualified Code(s): I48.0 - Paroxysmal atrial fibrillation (8) DVT prophylaxis Current Visit: No Status: Acute - Time Spent With Patient Total time spent is greater than 50% in coordination of care (as documented) at patient's floor/unit and/or counseling patient: - Attending Attestation I saw evaluated and examined this patient and my medical decision-making was reviewed with the Resident Physician, Onelia Silva. I agree with the documented findings, disposition and treatment plan as described except to any changes set forth below. We independently had [id number] contact with the patient. 87-year-old female patient with history of Alzheimer's disease, hypertension, hyperlipidemia, prior CVA with left-sided residual weakness, atrial fibrillation, diabetes and hypertension was brought [facility] the ER from her [facility] with complaints of fever. Patient has also been having increasing cough. She has not noted any sputum production. According to the ED records, her temperature was 102 at the [facility]. Patient currently denies any chest pain. No abdominal pain. No nausea or vomiting. Patient has dementia and most of the history has been obtained through talking to her son who is at bedside and through review of ED records and [facility] records. General: Patient is alert, mild distress, oriented x 0 Head: atraumatic, normocephalic, Eye: normal appearance, PERRL, no scleral icterus, bilateral conjunctival injection, increased crusting of eyelids Neck: normal inspection, trachea midline, full ROM, no carotid bruits Chest: normal inspection, symmetric chest rise Respiratory: Good respiratory effort. End-expiratory wheezing Cardiovascular: Regular rate and rhythm. s1 and s2 normal No clicks, rubs, gallops, or murmurs. Abdomen: Abdomen is soft, nontender. Bowel sounds are present Musculoskeletal: Bilateral pedal edema Skin: warm, dry, intact. Neuro: Alert oriented x 0 chronic left-sided weakness Possible healthcare associated pneumonia due to MRSA: Patient's x-ray shows low lung volumes. No clear infiltrates. However she High grade fever. She also seemed to have symptoms of viral prodrome with crusting of her eyes and conjunctival injection. Will treat her with empiric broad-spectrum antibiotics as she is a [facility] patient. Repeat chest x-ray in the morning to reevaluate. If no signs of pneumonia and that time, may de-escalate antibiotics. Will also get respiratory infection panel. Essential hypertension: Monitor blood pressure. Resume home medications. Diabetes mellitus type 2: Monitor blood sugars. Sliding scale insulin. History of CVA: Continue aspirin. Atrial fibrillation: Rate controlled. Continue Eliquis. DVT prophylaxis with Eliquis.
[2018-03-18] MEDS ORDERED: *HR* Dextrose 50 % in Water (Syg) 50 ML SYRINGE IVP PRN (11:37)
[2018-03-18] MEDS ORDERED: Dextrose Gel 15 GM/37.5 ML TUBE PO PRN ×2 (11:37)
[2018-03-18] MEDS ORDERED: D5% in Water 1,000 ML IVC PRN (11:37)
[2018-03-18] MEDS ORDERED: Levofloxacin 500 MG/100 ML 500 MG/100 ML BAG IVPB SCH (12:00)
[2018-03-18] MEDS ORDERED: Nystatin POWDER 30 GM BOTTLE TP PRN (12:17)
[2018-03-18] MEDS ORDERED: Cefepime HCl 1,000 MG in 0.9 % Sodium Chloride Mini Bag 100 ML IVPB SCH (18:00)
[2018-03-18] MEDS: Insulin LISPRO 300 UNITS/3 ML VIAL SQ SCH ×2 (18:05→20:58)
[2018-03-18] MEDS: Sennosides 8.6 MG TABLET PO SCH (18:06)
[2018-03-18] MEDS: Piperacillin/Tazobactam 3.375 GM in 0.9 % Sodium Chloride Mini Bag 100 ML IVPB SCH (18:06)
[2018-03-18] MEDS ORDERED: Ipratropium/Albuterol Neb 3 ML IH PRN (18:29)
[2018-03-18 19:50] LABS: Adenovirus Not Detected (Not Detect); Bordetella Pertussis Not Detected (Not Detect); Chlamydophila pneumoniae Not Detected (Not Detect); Coronavirus 229E Not Detected (Not Detect); Coronavirus HKU1 Not Detected (Not Detect); Coronavirus NL63 Not Detected (Not Detect); Coronavirus OC43 Not Detected (Not Detect); Human Metapneumovirus Not Detected (Not Detect); Human Rhinovirus/Enterovirus Not Detected (Not Detect); Influenza A Subtype 2009 H1 Not Detected (Not Detect); Influenza A Untypeable Not Detected (Not Detect); Influenza B Not Detected (Not Detect); Mycoplasma pneumoniae Not Detected (Not Detect); Parainfluenza Virus 1 Not Detected (Not Detect); Parainfluenza Virus 2 Not Detected (Not Detect); Parainfluenza Virus 3 DETECTED (Not Detect); Parainfluenza Virus 4 Not Detected (Not Detect); Respiratory Syncytial Virus Not Detected (Not Detect)
[2018-03-18] MEDS: *HR* OxyCODONE/APAP 5/325 TABLET PO SCH (20:20)
[2018-03-18] MEDS: Lactobacillus 1 EACH CAP.SPRINK PO SCH (20:20)
[2018-03-18] MEDS: Apixaban 2.5 MG TABLET PO SCH (20:20)
[2018-03-18] MEDS ORDERED: Acetaminophen 325 MG TABLET PO ONE (21:08)
[2018-03-19] MEDS: Piperacillin/Tazobactam 3.375 GM in 0.9 % Sodium Chloride Mini Bag 100 ML IVPB SCH ×3 (03:24→15:40)
[2018-03-19] MEDS ORDERED: Acetaminophen 325 MG TABLET PO ONE (05:19)
[2018-03-19] MEDS: Lactobacillus 1 EACH CAP.SPRINK PO SCH ×2 (06:43→19:51)
[2018-03-19 07:02] LABS: Basophils % 0.2 %; Eosinophils # 0.2 K/mcL (0.0-0.6); Hematocrit 34.6 % (35.3-44.9); Hemoglobin 11.9 g/dL (11.5-15.4); Immature Granulocytes % 0.3 % (0-4); Lymphocytes # 1.3 K/mcL (0.6-4.6); Lymphocytes % 20.9 %; Mean Corpuscular HGB Conc 34.4 g/dL (31.6-35.5); Mean Corpuscular Hemoglobin 31.2 pg (28.0-33.3); Mean Corpuscular Volume 90.8 fL (83.0-100.0); Mean Platelet Volume 10.4 fL (9.4-12.4); Monocytes # 0.5 K/mcL (0.0-1.3); Monocytes % 8.6 %; Neutrophils # 4.2 K/mcL (1.6-8.9); Platelet Count 147 K/mcL (140-400); Red Blood Count 3.81 M/mcL (3.82-4.97); Red Cell Distribution Width 14.5 % (11.5-14.5)
[2018-03-19 07:07] LABS: Calcium 8.8 mg/dL (8.6-10.3); Magnesium 1.8 mg/dL (1.6-2.6); Phosphorous 3.2 mg/dL (2.7-4.5); Potassium 4.1 mEq/L (3.5-5.1)
[2018-03-19] MEDS: Aspirin Enteric Coated 81 MG Tablet PO SCH (09:24)
[2018-03-19] MEDS: amLODIPine 5 MG TABLET PO SCH (09:24)
[2018-03-19] MEDS: Insulin LISPRO 300 UNITS/3 ML VIAL SQ SCH ×4 (09:25→20:17)
[2018-03-19] MEDS: Sennosides 8.6 MG TABLET PO SCH ×2 (09:27→17:40)
[2018-03-19] MEDS: *HR* OxyCODONE/APAP 5/325 TABLET PO SCH ×2 (09:33→19:51)
[2018-03-19] MEDS: Apixaban 2.5 MG TABLET PO SCH ×2 (09:33→19:51)
[2018-03-19] MEDS: Carbamide Peroxide 150 DROP/15 ML BOTTLE BOTH EARS SCH (09:34)
[2018-03-19] MEDS ORDERED: Aminoglycoside Consult 1 EACH MC ONE (10:27)
--- NOTE | 2018-03-19 14:23 | Internal Med Progress Note ---
Hospitalist Progress Note - Encounter Date of Encounter: 03/19/18 Time of Encounter: 14:21 - Subjective Interval History: I have seen and evaluated the patient at bedside. Patient with dementia, not following commands. in no visual distress. - Exam Vitals: Temp Pulse Resp BP Pulse Ox 98.4 F 76 17 124/56 94 03/19/18 11:16 18 11:16 03/19/18 11:16 03/19/18 11:16 03/19/18 11:16 Exam: Vitals: Reviewed. General: Alert, not oriented to time, or place. In no acute distress. Skin: Normal color, no rash, no lesions. HEENT: EOM, pupils equal, round and reactive. Cardiovascular: RRR, Normal S1 & S2, no rubs, murmurs or gallops. Lungs: mild crackles at the bases b/l, no wheezes or rales. Abdomen: Obese, Soft, non-tender, no rigidity. Extremities: Trace edema in the lower extr b/l. Neurological: Hx of dementia. Rest of the physical exam is non contributory - Assessment and Plan (1) Healthcare-associated pneumonia Current Visit: Yes Status: Suspected Assessment and Plan: Patient found to be febrile at presentation and check chest x-ray finding suggesting no pneumonia. Continue broad-spectrum antibiotics with dual antipseudomonal coverage Vancomycin per pharmacy dosing. Sputum culture sent Blood cultures: No growth, pending final report. Speech evaluation, due to concern from the family about possible chocking with feeding (2) Diabetes mellitus Current Visit: No Status: Chronic Assessment and Plan: Blood sugar is well controlled. Continue lispro medium dose sliding scale before meals. will add levemir 5 units HS. carb controlled diet. (3) Hypertension Current Visit: No Status: Chronic Assessment and Plan: Blood pressure has been well controlled. Patient is on metoprolol 25 mg twice a day. And amlodipine 2.5 mg by mouth Will start furosemide 40mg/IV daily due to vascular congestion seen on x-ray. (4) CKD (chronic kidney disease) stage 3, GFR 30-59 ml/min Current Visit: No Status: Chronic Assessment and Plan: Kidney function at baseline. We will continue to monitor, avoid nephrotoxic medication. (5) Afib Current Visit: No Status: Chronic Assessment and Plan: Rate controlled on metoprolol. On Apixaban 2.5mg/PO BID due to high CHADSVASC score (6) History of stroke with current residual effects Current Visit: No Status: Chronic Assessment and Plan: PT/OT. DVT Prophylaxis: Patient on an Oral anticoagulant due to Hx of A.fib. - Summary of Assessment and Plan Summary of Assessment and Plan: Patient to remain in the hospital due to pneumonia, and broad-spectrum IV antibiotic. - Time Spent with Patient Total time spent is greater than 50% in coordination of care (as documented) at patient's floor/unit and/or counseling patient: Greater than 35 minutes (40) Plan of Care Discussed with: nurse (and patient's daughter in law.) Internal Medicine: Result - Labs CBC & Chem 7: 03/19/18 06:33 03/19/18 06:33 Labs: Short CBC 03/19/18 Range/Units 06:33 WBC 6.3 (4.3-11.1) K/mcL Hgb 11.9 (11.5-15.4) g/dL Hct 34.6 L (35.3-44.9) % Plt Count 147 (140-400) K/mcL Neutrophils # 4.2 (1.6-8.9) K/mcL BMP 03/19/18 06:33 Sodium 135 L Potassium 4.1 Chloride 102 Carbon Dioxide 23 BUN 17 Creatinine 1.31 H Glucose 180 H Calcium 8.8 - Impressions Impressions Chest X-Ray 03/19/18 08:00 IMPRESSION: Developing pulmonary edema versus pneumonia. 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 radiology technician insulin use: with limited radiology technician use Diabetes mellitus complication status: with kidney complications Diabetes mellitus complication detail: with chronic kidney disease Chronic kidney disease stage: stage 3 (moderate) Qualified Code(s): E11.22 - Type 2 diabetes mellitus with diabetic chronic kidney disease; N18.3 - Chronic kidney disease, stage 3 (moderate); Z79.4 - retirement (current) use of insulin (3) Hypertension Qualifiers: Hypertension type: essential hypertension Qualified Code(s): I10 - Essential (primary) hypertension (5) Afib Qualifiers: Atrial fibrillation type: paroxysmal Qualified Code(s): I48.0 - Paroxysmal atrial fibrillation
[2018-03-19] MEDS: Furosemide 20 MG/2 ML VIAL IVP SCH (15:40)
[2018-03-19] MEDS: Insulin DETEMIR 100 UNIT/ML X5UNITS SQ SCH (20:19)
[2018-03-20] MEDS: Piperacillin/Tazobactam 3.375 GM in 0.9 % Sodium Chloride Mini Bag 100 ML IVPB SCH ×4 (00:54→23:22)
[2018-03-20] MEDS: Lactobacillus 1 EACH CAP.SPRINK PO SCH ×2 (06:19→21:31)
[2018-03-20] MEDS: Carbamide Peroxide 150 DROP/15 ML BOTTLE BOTH EARS SCH (06:20)
[2018-03-20 06:59] LABS: Basophils % 0.4 %; Eosinophils # 0.4 K/mcL (0.0-0.6); Eosinophils % 7.5 %; Hematocrit 35.8 % (35.3-44.9); Hemoglobin 12.1 g/dL (11.5-15.4); Immature Granulocytes % 0.4 % (0-4); Lymphocytes # 1.6 K/mcL (0.6-4.6); Lymphocytes % 30.8 %; Mean Corpuscular HGB Conc 33.8 g/dL (31.6-35.5); Mean Corpuscular Volume 91.8 fL (83.0-100.0); Mean Platelet Volume 10.4 fL (9.4-12.4); Monocytes # 0.6 K/mcL (0.0-1.3); Monocytes % 10.8 %; Neutrophils # 2.6 K/mcL (1.6-8.9); Platelet Count 150 K/mcL (140-400); Red Cell Distribution Width 14.4 % (11.5-14.5); Segmented Neutrophils % 50.1 %
[2018-03-20 07:20] LABS: Magnesium 1.9 mg/dL (1.6-2.6); Phosphorous 2.8 mg/dL (2.7-4.5); Potassium 3.4 mEq/L (3.5-5.1)
[2018-03-20] MEDS: Sennosides 8.6 MG TABLET PO SCH ×2 (08:12→16:26)
[2018-03-20] MEDS: Furosemide 20 MG/2 ML VIAL IVP SCH (08:12)
[2018-03-20] MEDS: *HR* OxyCODONE/APAP 5/325 TABLET PO SCH ×2 (08:12→21:31)
[2018-03-20] MEDS: Apixaban 2.5 MG TABLET PO SCH ×2 (08:12→21:32)
[2018-03-20] MEDS: amLODIPine 5 MG TABLET PO SCH (08:12)
[2018-03-20] MEDS: Aspirin Enteric Coated 81 MG Tablet PO SCH (08:12)
[2018-03-20] MEDS: Insulin LISPRO 300 UNITS/3 ML VIAL SQ SCH ×4 (08:30→21:32)
[2018-03-20] MEDS ORDERED: Levofloxacin 750 MG/150 ML 750 MG/150 ML BAG IVPB SCH (09:00)
--- NOTE | 2018-03-20 12:02 | Internal Med Progress Note ---
Hospitalist Progress Note - Encounter Date of Encounter: 03/20/18 Time of Encounter: 11:58 - Subjective Interval History: I have seen and evaluated the patient at bedside. Patient with moderate to severe dementia. she does not engage into conversations or follows commands. - Exam Vitals: Temp Pulse Resp BP Pulse Ox 97.5 F L 73 16 103/59 96 03/20/18 11:29 03/20/18 11:29 03/20/18 11:29 03/20/18 11:29 03/20/18 11:29 Exam: Vitals: Reviewed. General: Alert, not oriented to time, or place. No visual distress.. HEENT: EOM, pupils equal, round and reactive. Cardiovascular: RRR, Normal S1 & S2, no rubs, murmurs or gallops. Lungs: Clear to auscultation b/l, no wheezes or rales. Abdomen: Obese, Soft, non-tender, no rigidity. NABS in all 4 quadrants Extremities: Trace edema in the lower extr b/l. Neurological: Unable to perform due to Hx of dementia. Rest of the physical exam is non contributory - Assessment and Plan (1) Healthcare-associated pneumonia Current Visit: Yes Status: Suspected Assessment and Plan: as patient has remain afebrile, hemodynamically stable and B/C is negative for >48hrs. will deescalate on antibiotics coverage d/c vancomycin and levofloxacin continue Piperacillin/tazobactam 3.375mg/IV Q8HRs Speech has been consulted for concern and high risk of aspiration. On bronchodilators when necessary. (2) Diabetes mellitus Current Visit: No Status: Chronic Assessment and Plan: Blood sugar has been well controlled. continue Levemir 5 units at bedtime, and lispro low-dose sliding scale before meals. On a carb controlled diet. (3) Hypertension Current Visit: No Status: Chronic Assessment and Plan: Blood pressure has been well controlled. Continue metoprolol 25 mg twice a day, and furosemide 20 mg IV daily. (4) CKD (chronic kidney disease) stage 3, GFR 30-59 ml/min Current Visit: No Status: Chronic Assessment and Plan: Kidney function at baseline. Continue to avoid nephrotoxic medication. We will reassess in the morning. (5) Afib Current Visit: No Status: Chronic Assessment and Plan: Rate controlled patient is on metoprolol 25 mg twice a day. Anticoagulated with apixaban 2.5mg/PO BID (6) History of stroke with current residual effects Current Visit: No Status: Chronic (7) Dementia Current Visit: No Status: Chronic Assessment and Plan: Patient is on memantine 10 mg 2 times a day DVT Prophylaxis: patient is on apixaban 2.5mg/PO BID. - Summary of Assessment and Plan Summary of Assessment and Plan: Patient to remain in the hospital due to Hcap on IV antibiotics. potential dc tomorrow. - Time Spent with Patient Total time spent is greater than 50% in coordination of care (as documented) at patient's floor/unit and/or counseling patient: Greater than 35 minutes (40) Plan of Care Discussed with: nurse (and the patient's daughter) Internal Medicine: Result - Labs CBC & Chem 7: 03/20/18 06:30 03/20/18 06:30 Labs: Short CBC 03/20/18 Range/Units 06:30 WBC 5.2 (4.3-11.1) K/mcL Hgb 12.1 (11.5-15.4) g/dL Hct 35.8 (35.3-44.9) % Plt Count 150 (140-400) K/mcL Neutrophils # 2.6 (1.6-8.9) K/mcL BMP 03/20/18 06:30 Sodium 138 Potassium 3.4 L Chloride 104 Carbon Dioxide 25 BUN 15 Creatinine 1.36 H Glucose 118 H Calcium 9.0 Consult Discharge Plan - Plan Referrals: NONE,PCP [Primary Care Provider] - (2) Diabetes mellitus Qualifiers: Diabetes mellitus type: type 2 Diabetes mellitus detention insulin use: with detention use Diabetes mellitus complication status: with kidney complications Diabetes mellitus complication detail: with chronic kidney disease Chronic kidney disease stage: stage 3 (moderate) Qualified Code(s): E11.22 - Type 2 diabetes mellitus with diabetic chronic kidney disease; N18.3 - Chronic kidney disease, stage 3 (moderate); Z79.4 - family services worker (current) use of insulin (3) Hypertension Qualifiers: Hypertension type: essential hypertension Qualified Code(s): I10 - Essential (primary) hypertension (5) Afib Qualifiers: Atrial fibrillation type: paroxysmal Qualified Code(s): I48.0 - Paroxysmal atrial fibrillation (7) Dementia Qualifiers: Dementia type: Alzheimer's disease Alzheimer's disease onset: unspecified onset Dementia behavioral disturbance: without behavioral disturbance Qualified Code(s): G30.9 - Alzheimer's disease, unspecified; F02.80 - Dementia in other diseases classified elsewhere without behavioral disturbance
--- NOTE | 2018-03-20 15:57 | Electrocardiograph Report ---
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
[2018-03-20] MEDS: Insulin DETEMIR 100 UNIT/ML X5UNITS SQ SCH (21:32)
[2018-03-21] MEDS: Carbamide Peroxide 150 DROP/15 ML BOTTLE BOTH EARS SCH (06:21)
[2018-03-21] MEDS: Lactobacillus 1 EACH CAP.SPRINK PO SCH (06:22)
[2018-03-21] MEDS ORDERED: *HR* OxyCODONE/APAP 5/325 TABLET PO PRN (06:51)
[2018-03-21 08:44] LABS: Hematocrit 35.9 % (35.3-44.9); Hemoglobin 12.5 g/dL (11.5-15.4); Mean Corpuscular HGB Conc 34.8 g/dL (31.6-35.5); Mean Corpuscular Hemoglobin 31.3 pg (28.0-33.3); Mean Platelet Volume 10.2 fL (9.4-12.4); Platelet Count 168 K/mcL (140-400); Red Blood Count 3.99 M/mcL (3.82-4.97); Red Cell Distribution Width 14.1 % (11.5-14.5)
[2018-03-21] MEDS: Aspirin Enteric Coated 81 MG Tablet PO SCH (09:01)
[2018-03-21] MEDS: amLODIPine 5 MG TABLET PO SCH (09:01)
[2018-03-21] MEDS: Apixaban 2.5 MG TABLET PO SCH (09:01)
[2018-03-21] MEDS: Sennosides 8.6 MG TABLET PO SCH (09:01)
[2018-03-21] MEDS: Furosemide 20 MG/2 ML VIAL IVP SCH (09:02)
[2018-03-21] MEDS: Piperacillin/Tazobactam 3.375 GM in 0.9 % Sodium Chloride Mini Bag 100 ML IVPB SCH (09:02)
[2018-03-21 09:03] LABS: Calcium 9.1 mg/dL (8.6-10.3); Magnesium 1.9 mg/dL (1.6-2.6); Potassium 3.3 mEq/L (3.5-5.1)
[2018-03-21] MEDS: Insulin LISPRO 300 UNITS/3 ML VIAL SQ SCH ×2 (09:07→12:29)
--- NOTE | 2018-03-21 09:21 | Discharge Summary ---
- NOTES TO OUTPATIENT PROVIDER Notes to Outpatient Provider: Follow-up with your primary care physician within a week of hospital discharge. Orders not resulted at time of discharge: Pending orders 03/18/18 07:56 Culture,Blood [BC] Stat 03/19/18 14:01 Sputum Culture [Culture,Sputum with Gram Stain] [] Stat Date of Encounter: 03/21/18 Time of Encounter: 09:18 - Discharge Diagnosis (1) Healthcare-associated pneumonia Priority: Primary Status: Suspected (2) Diabetes mellitus Priority: Secondary Status: Chronic Qualifiers: Diabetes mellitus type: type 2 Diabetes mellitus residential insulin use: with residential use Diabetes mellitus complication status: with kidney complications Diabetes mellitus complication detail: with chronic kidney disease Chronic kidney disease stage: stage 3 (moderate) Qualified Code(s): E11.22 - Type 2 diabetes mellitus with diabetic chronic kidney disease; N18.3 - Chronic kidney disease, stage 3 (moderate); Z79.4 - residential (current) use of insulin (3) Hypertension Priority: Secondary Status: Chronic Qualifiers: Hypertension type: essential hypertension Qualified Code(s): I10 - Essential (primary) hypertension (4) CKD (chronic kidney disease) stage 3, GFR 30-59 ml/min Priority: Secondary Status: Chronic (5) Afib Priority: Secondary Status: Chronic Qualifiers: Atrial fibrillation type: paroxysmal Qualified Code(s): I48.0 - Paroxysmal atrial fibrillation (6) History of stroke with current residual effects Priority: Secondary Status: Chronic (7) Dementia Priority: Secondary Status: Chronic Qualifiers: Dementia type: Alzheimer's disease Alzheimer's disease onset: unspecified onset Dementia behavioral disturbance: without behavioral disturbance Qualified Code(s): G30.9 - Alzheimer's disease, unspecified; F02.80 - Dementia in other diseases classified elsewhere without behavioral disturbance Hospital course: Ms. Silva is a 87 year old female past medical history of Alzheimer's disease, hypertension, hyperlipidemia, prior CVA with residual left upper extremity and left lower extremity weakness, osteoarthritis, diabetes, atrial fibrillation, hypertension. Patient is a resident of a detention. She was brought in with concerns for fever of 102 with the detention, and significant coughing that kept her up throughout the night. Patient admitted to the hospital due to pneumonia, started on broad spectrum iv antibiotics with dual antipseudomonal coverage. Blood culture: No growth, rapid flu test: negative. Patient has been afebrile, hemodynamically stable to be transferred back to the detention on oral antibiotics. Due to concern and high risk of aspiration speech therapy was consulted and recommended a modified barium swallow evaluation, following the barium swallow modified bs IMPRESSION: Swallowing mechanism grossly within normal limits without evidence of aspiration. Plan recommended to follow-up with her primary care within a week of hospital discharge. - Time Spent with Patient Total time spent providing and/or coordinating discharge services: Greater than 30 minutes (35) - Discharge Medications Prescriptions: Amoxicillin/Clavulanate [Augmentin] 875 mg PO BIDWM 14 Days #7 tablet Home Medications: Apixaban [Eliquis] 2.5 mg PO 0700,199908/19/17 [History] Ascorbic Acid [Vitamin C with Madelyn Hips] 500 mg PO 0800 08/19/17 [History] Aspirin [Lo-Dose Aspirin EC] 81 mg PO 0800 08/19/17 [History] Furosemide [Lasix] 40 mg PO 0800,1700 08/19/17 [History] Insulin ASPART [Novolog Flexpen] 7 unit SQ 0800 08/19/17 [History] Insulin ASPART [Novolog Flexpen] 12 unit SQ 1700 08/19/17 [History] Insulin ASPART [Novolog Flexpen] 15 unit SQ 1200 08/19/17 [History] Insulin DETEMIR [Levemir Flextouch] 25 unit SQ 199908/19/17 [History] Memantine HCl 10 mg PO 0700,1800 08/19/17 [History] Multivit-Min/FA/Lycopen/Lutein [A Thru Z Select Multivit Tab] 1 tab PO 0800 08/19/17 [History] Oxycodone HCl/Acetaminophen [Percocet 5-325 mg Tablet] 0.5 tab PO BID 08/19/17 [History] Polyethylene Glycol 3350 [MiraLAX Powder Bulk 17.9 Oz] 17 gm PO 0800 08/19/17 [History] Potassium Chloride [Klor-Con 10] 10 meq PO 0800 08/19/17 [History] Amlodipine Besylate 2.5 mg PO 0800 03/18/18 [History] Bisacodyl [Woman's Laxative] 5 mg PO 0800 03/18/18 [History] Carbamide Peroxide [Ear Drops] 3 drop BOTH EARS 0700 03/18/18 [History] Glucagon,Human Recombinant [Glucagon Emergency Kit] 1 mg IJ AD 03/18/18 [History] Lactobacillus Acidophilus [Acidophilus Lactobacilli] 1 each PO 07,199903/18/18 [History] Magnesium Hydroxide [Milk of Magnesia] 2,400 mg PO DAILY PRN 03/18/18 [History] Metoprolol [Lopressor] 25 mg PO 07,199903/18/18 [History] Nystatin POWDER [Nystop] 1 appl TP BID PRN 03/18/18 [History] Oxycodone HCl/Acetaminophen [Percocet 5-325 mg Tablet] 1 tab PO BID PRN 03/18/18 [History] Sennosides [Senokot] 17.2 mg PO 0800,1700 03/18/18 [History] Amoxicillin/Clavulanate [Augmentin] 875 mg PO BIDWM 14 Days #7 tablet 03/21/18 [Rx] Allergies/Adverse Reactions: Allergy/AdvReac Type Severity Reaction Status Date / Time Sulfa (Sulfonamide Allergy Hives Verified 03/18/18 12:10 Antibiotics) Date of admission: 03/18/18 10:26 Primary care physician: PCP NONE Consults: 03/18/18 12:38 Consult to Pie Crust Mixer [CONS] Routine Reason for SW Consult: from [facility] 03/19/18 14:19 Consult to Speech Therapy [CONS] Routine Comment: Evaluate, develop and implement POC Reason for Consult: swallow evaluation Call Completed: No - Constitutional Vitals: Temp Pulse Resp BP Pulse Ox 97.4 F L 77 18 138/81 92 03/21/18 07:20 03/21/18 07:20 03/21/18 07:20 03/21/18 07:20 03/21/18 07:20 General appearance: Present: A&O X 0 Exam: Vitals: Reviewed. General: Alert, not oriented to time, or place. No visual distress.. HEENT: EOM, pupils equal, round and reactive. Cardiovascular: RRR, Normal S1 & S2, no rubs, murmurs or gallops. Lungs: Clear to auscultation b/l, no wheezes or rales. Abdomen: Obese, Soft, non-tender, no rigidity. NABS in all 4 quadrants Extremities: Trace edema in the lower extr b/l. Neurological: Unable to perform due to Hx of dementia. Rest of the physical exam is non contributory - Patient Status Disposition: Transfer LTC Condition: Good Functional capacity at discharge: bed bound Overall status at discharge: patient is back to baseline - Discharge Instructions Follow Up With: NONE,PCP [Primary Care Provider] - (going back to [facility]) - Diet and Activity Activity: as per physical therapy Diet: diabetic diet
--- NOTE | 2018-03-21 09:29 | Physician Discharge Referral ---
ExtendedCare Referral Info Transfer To: f - Diagnosis (1) Healthcare-associated pneumonia Priority: Primary Status: Suspected (2) Diabetes mellitus Priority: Secondary Status: Chronic (3) Hypertension Priority: Secondary Status: Chronic (4) CKD (chronic kidney disease) stage 3, GFR 30-59 ml/min Priority: Secondary Status: Chronic (5) Afib Priority: Secondary Status: Chronic (6) History of stroke with current residual effects Priority: Secondary Status: Chronic (7) Dementia Priority: Secondary Status: Chronic Prognosis: Fair Aware of Diagnosis: Patient Aware of Prognosis: Patient - Transfer Medications Prescriptions: Amoxicillin/Clavulanate [Augmentin] 875 mg PO BIDWM 14 Days #7 tablet Home Medications: Apixaban [Eliquis] 2.5 mg PO 0700,199908/19/17 [History] Ascorbic Acid [Vitamin C with Madelyn Hips] 500 mg PO 0800 08/19/17 [History] Aspirin [Lo-Dose Aspirin EC] 81 mg PO 0800 08/19/17 [History] Furosemide [Lasix] 40 mg PO 0800,1700 08/19/17 [History] Insulin ASPART [Novolog Flexpen] 7 unit SQ 0800 08/19/17 [History] Insulin ASPART [Novolog Flexpen] 12 unit SQ 1700 08/19/17 [History] Insulin ASPART [Novolog Flexpen] 15 unit SQ 1200 08/19/17 [History] Insulin DETEMIR [Levemir Flextouch] 25 unit SQ 199908/19/17 [History] Memantine HCl 10 mg PO 0700,1800 08/19/17 [History] Multivit-Min/FA/Lycopen/Lutein [A Thru Z Select Multivit Tab] 1 tab PO 0800 08/19/17 [History] Oxycodone HCl/Acetaminophen [Percocet 5-325 mg Tablet] 0.5 tab PO BID 08/19/17 [History] Polyethylene Glycol 3350 [MiraLAX Powder Bulk 17.9 Oz] 17 gm PO 0800 08/19/17 [History] Potassium Chloride [Klor-Con 10] 10 meq PO 0800 08/19/17 [History] Amlodipine Besylate 2.5 mg PO 0800 03/18/18 [History] Bisacodyl [Woman's Laxative] 5 mg PO 0800 03/18/18 [History] Carbamide Peroxide [Ear Drops] 3 drop BOTH EARS 0700 03/18/18 [History] Glucagon,Human Recombinant [Glucagon Emergency Kit] 1 mg IJ AD 03/18/18 [History] Lactobacillus Acidophilus [Acidophilus Lactobacilli] 1 each PO 0700,199903/18/18 [History] Magnesium Hydroxide [Milk of Magnesia] 2,400 mg PO DAILY PRN 03/18/18 [History] Metoprolol [Lopressor] 25 mg PO 0700,199903/18/18 [History] Nystatin POWDER [Nystop] 1 appl TP BID PRN 03/18/18 [History] Oxycodone HCl/Acetaminophen [Percocet 5-325 mg Tablet] 1 tab PO BID PRN 03/18/18 [History] Sennosides [Senokot] 17.2 mg PO 0800,1700 03/18/18 [History] Amoxicillin/Clavulanate [Augmentin] 875 mg PO BIDWM 14 Days #7 tablet 03/21/18 [Rx] Allergies/Adverse Reactions: Allergy/AdvReac Type Severity Reaction Status Date / Time Sulfa (Sulfonamide Allergy Hives Verified 03/18/18 12:10 Antibiotics) - Respiratory Orders None Smoking Cessation: Smoking cessation has been advised. For more information, call the [place] Tobacco Quit Line at 4-402-SJQYNOW. - Advance Directives Code Status: DNR-Arrest - Mobility Orders Chair - Rehabiliation Orders Rehab Potential: Fair Rehab Orders: Evaluation for Occupational Therapy CERTIFICATION: I certify that the transfer of the above named patient to an Extended Care Facility is necessary for the continuing treatment of the diagnosis listed. The above information is true and accurate reflection of patient's current condition. Confidential - Redisclosure prohibited without a patient's written consent.
[2018-03-21 12:19] VITALS: BP 113/74
== END 2018-03-21 14:54 ==
LOC: EMEROOARM 07:20 → 2ANU 07:20 → SUATTDRO 10:26 → 2ANU 11:27
PROVIDERS: ADMIT Internal Medicine; ATTEND Internal Medicine

== ENCOUNTER 2019-09-25 22:05 | Inpatient (IN) ==
[2019-09-26 01:01] LABS: INR 1.4; Prothrombin Time 15.4 Seconds (9.4-12.1)
[2019-09-26 01:02] LABS: Basophils % 0.6 %; Eosinophils # 0.3 K/mcL (0.0-0.6); Eosinophils % 3.5 %; Hematocrit 46.1 % (35.3-44.9); Hemoglobin 14.8 g/dL (11.5-15.4); Immature Granulocytes % 0.4 % (0-4); Lymphocytes # 2.5 K/mcL (0.6-4.6); Mean Corpuscular HGB Conc 32.1 g/dL (31.6-35.5); Mean Corpuscular Volume 93.5 fL (83.0-100.0); Mean Platelet Volume 10.9 fL (9.4-12.4); Monocytes # 0.7 K/mcL (0.0-1.3); Monocytes % 9.4 %; Neutrophils # 3.8 K/mcL (1.6-8.9); Platelet Count 202 K/mcL (140-400); Red Blood Count 4.93 M/mcL (3.82-4.97); Red Cell Distribution Width 14.3 % (11.5-14.5); Segmented Neutrophils % 52.1 %; White Blood Count 7.2 K/mcL (4.3-11.1)
[2019-09-26 01:18] LABS: Albumin 3.8 g/dL (3.5-5.7); Albumin/Globulin Ratio 1.2 (1.1-2.2); Bilirubin,Total 0.5 mg/dL (0.3-1.0); Calcium 9.7 mg/dL (8.6-10.3); Globulin 3.2 g/dL (2.4-3.5); Potassium 3.9 mEq/L (3.5-5.1)
[2019-09-26] MEDS ORDERED: Nystatin POWDER 30 GM BOTTLE TP PRN (03:13)
[2019-09-26] MEDS ORDERED: D5% in Water 1,000 ML IVC PRN (03:19)
[2019-09-26] MEDS ORDERED: *HR* Dextrose 50 % in Water (Vial) 50 ML VIAL IVP PRN (03:19)
[2019-09-26] MEDS ORDERED: Dextrose Gel 15 GM/37.5 ML TUBE PO PRN ×2 (03:19)
[2019-09-26] MEDS ORDERED: Acetaminophen 325 MG TABLET PO PRN (04:06)
[2019-09-26] MEDS ORDERED: Naloxone 0.4 MG/ML INJ IVP PRN (04:06)
[2019-09-26] MEDS ORDERED: *HR* OxyCODONE/APAP 5/325 TABLET PO PRN (07:19)
[2019-09-26] MEDS ORDERED: Insulin LISPRO 300 UNITS/3 ML VIAL SQ SCH ×2 (07:30→21:00)
[2019-09-26] MEDS ORDERED: Perflutren Lipid Microsphere 1.3 ML in 0.9 % Sodium Chloride 8.7 ML IVP ONE (08:00)
[2019-09-26] MEDS: Insulin LISPRO 300 UNITS/3 ML VIAL SQ SCH ×3 (08:07→23:42)
[2019-09-26] MEDS: polyethylene glycoL 3350 17 GM POWD.PACK PO SCH (08:08)
[2019-09-26] MEDS: Aspirin Enteric Coated 81 MG Tablet PO SCH (08:08)
[2019-09-26] MEDS ORDERED: PEG OP SCH (09:00)
[2019-09-26] MEDS ORDERED: [UNRECOGNIZED DRUG - OTHER] OP SCH (09:00)
[2019-09-26] MEDS ORDERED: PROPYLENE GLYCOL OP SCH (09:00)
[2019-09-26] MEDS ORDERED: amLODIPine 5 MG TABLET PO SCH (09:00)
[2019-09-26] MEDS: CLEAR EYES NATURAL TEARS 15 ML BOTTLE BOTH EYES SCH ×4 (12:55→22:01)
[2019-09-26] MEDS ORDERED: Furosemide 20 MG/2 ML VIAL IVP ONE (13:33)
[2019-09-26] MEDS ORDERED: *HR* Heparin 5,000 UNIT/ML VIAL IVP ONE (13:34)
[2019-09-26] MEDS ORDERED: *HR* Heparin 5,000 UNIT/ML VIAL IVP PRN ×2 (13:34)
[2019-09-26] MEDS ORDERED: Heparin 25,000 UNIT/250 ML D5W 25,000 UNIT/250 ML IV.SOLN IVC SCH ×2 (13:45→15:13)
[2019-09-26 14:50] LABS: INR 1.2; Prothrombin Time 14.1 Seconds (9.4-12.1)
[2019-09-26 14:55] LABS: Heparin anti-factor XA UFH 1.83 IU/mL (0.30-0.70)
[2019-09-26 14:57] LABS: Hematocrit 46.4 % (35.3-44.9); Hemoglobin 15.3 g/dL (11.5-15.4); Mean Corpuscular Hemoglobin 30.9 pg (28.0-33.3); Mean Corpuscular Volume 93.7 fL (83.0-100.0); Mean Platelet Volume 10.8 fL (9.4-12.4); Platelet Count 179 K/mcL (140-400); Red Blood Count 4.95 M/mcL (3.82-4.97); Red Cell Distribution Width 14.2 % (11.5-14.5); White Blood Count 8.1 K/mcL (4.3-11.1)
[2019-09-26 15:29] LABS: Activated Partial Thrombo Time 34.6 Seconds (26.0-36.0)
[2019-09-27 02:06] LABS: INR 1.3; Prothrombin Time 14.4 Seconds (9.4-12.1)
[2019-09-27 02:25] LABS: Activated Partial Thrombo Time 204.6 Seconds (26.0-36.0); Heparin anti-factor XA UFH > 2.00 IU/mL (0.30-0.70)
[2019-09-27 02:26] LABS: Calcium 9.5 mg/dL (8.6-10.3); Chol/HDL Ratio 4.1 (0-4.9); Potassium 3.6 mEq/L (3.5-5.1)
[2019-09-27] MEDS ORDERED: *HR* LORazepam 2 MG/ML VIAL IM PRN (03:30)
[2019-09-27 03:45] LABS: Hematocrit 45.6 % (35.3-44.9); Hemoglobin 14.8 g/dL (11.5-15.4); Mean Corpuscular HGB Conc 32.5 g/dL (31.6-35.5); Mean Corpuscular Hemoglobin 29.9 pg (28.0-33.3); Mean Corpuscular Volume 92.1 fL (83.0-100.0); Mean Platelet Volume 11.5 fL (9.4-12.4); Platelet Count 178 K/mcL (140-400); Red Blood Count 4.95 M/mcL (3.82-4.97); Red Cell Distribution Width 14.2 % (11.5-14.5); White Blood Count 7.7 K/mcL (4.3-11.1)
[2019-09-27 08:50] LABS: Estimated Average Glucose 151 mg/dl
[2019-09-27] MEDS: polyethylene glycoL 3350 17 GM POWD.PACK PO SCH (09:12)
[2019-09-27] MEDS: Aspirin Enteric Coated 81 MG Tablet PO SCH (09:12)
[2019-09-27] MEDS: Insulin LISPRO 300 UNITS/3 ML VIAL SQ SCH ×4 (09:13→21:58)
[2019-09-27] MEDS: CLEAR EYES NATURAL TEARS 15 ML BOTTLE BOTH EYES SCH ×4 (09:15→21:55)
[2019-09-27] MEDS ORDERED: *HR* Metoprolol 5 MG/5 ML VIAL IVP PRN (09:37)
[2019-09-27] MEDS ORDERED: *HR* OxyCODONE/APAP 5/325 TABLET PO PRN (13:28)
[2019-09-27 15:48] LABS: Bacteria,Urine Few per hpf (None-Few); Bilirubin,Urine Negative (Negative); Blood,Urine Large (Negative); Calcium Oxalate Crystals,Urine Present; Clarity,Urine Ex.Turbid (Clear); Color,Urine Light-Orange (Yellow); Glucose,Urine (UA) Normal (Normal); Ketones,Urine Negative (Negative); Leukocyte Esterase,Urine Large (Negative); Mucus,Urine Few per lpf (None-Few); Nitrite,Urine Negative (Negative); Protein,Urine 70 mg/dL (Neg-Trace); RBC,Urine TNTC per hpf (0-3); Specific Gravity,Urine 1.018 (1.010-1.025); Transitional Epi Cells,Urine Few per hpf (None-Few); Urobilinogen,Urine Normal (Normal); WBC,Urine TNTC per hpf (0-3)
[2019-09-27] MEDS: 0.9 % Sodium Chloride 1,000 ML IVC SCH (21:54)
[2019-09-28] MEDS: 0.9 % Sodium Chloride 1,000 ML IVC SCH ×2 (00:21→11:52)
[2019-09-28 07:24] LABS: Hematocrit 40.9 % (35.3-44.9); Mean Corpuscular HGB Conc 32.3 g/dL (31.6-35.5); Mean Corpuscular Hemoglobin 29.9 pg (28.0-33.3); Mean Corpuscular Volume 92.5 fL (83.0-100.0); Mean Platelet Volume 11.2 fL (9.4-12.4); Platelet Count 163 K/mcL (140-400); Red Blood Count 4.42 M/mcL (3.82-4.97)
[2019-09-28 07:25] LABS: Hemoglobin 13.2 g/dL (11.5-15.4)
[2019-09-28 07:43] LABS: Calcium 9.2 mg/dL (8.6-10.3); Potassium 3.4 mEq/L (3.5-5.1)
[2019-09-28] MEDS: CLEAR EYES NATURAL TEARS 15 ML BOTTLE BOTH EYES SCH ×4 (08:52→22:41)
[2019-09-28] MEDS: Insulin LISPRO 300 UNITS/3 ML VIAL SQ SCH ×4 (08:53→22:44)
[2019-09-28] MEDS: Aspirin Enteric Coated 81 MG Tablet PO SCH (08:53)
[2019-09-28] MEDS: polyethylene glycoL 3350 17 GM POWD.PACK PO SCH (08:53)
[2019-09-28] MEDS ORDERED: Potassium Chloride 20 MEQ, Lidocaine 1% 2 ML in 0.9 % Sodium Chloride 250 ML IVPB ONE (09:29)
[2019-09-28] MEDS: cefTRIAXone 1,000 MG in Water for inj. (sterile) 10 ML IVP SCH (16:12)
[2019-09-28] MEDS: Apixaban 2.5 MG TABLET PO SCH (22:40)
[2019-09-29 04:09] LABS: Hematocrit 39.6 % (35.3-44.9); Hemoglobin 13.1 g/dL (11.5-15.4); Mean Corpuscular HGB Conc 33.1 g/dL (31.6-35.5); Mean Corpuscular Hemoglobin 30.7 pg (28.0-33.3); Mean Corpuscular Volume 92.7 fL (83.0-100.0); Mean Platelet Volume 11.4 fL (9.4-12.4); Platelet Count 168 K/mcL (140-400); Red Blood Count 4.27 M/mcL (3.82-4.97); Red Cell Distribution Width 13.9 % (11.5-14.5); White Blood Count 7.4 K/mcL (4.3-11.1)
[2019-09-29 04:30] LABS: Calcium 9.4 mg/dL (8.6-10.3)
[2019-09-29] MEDS: polyethylene glycoL 3350 17 GM POWD.PACK PO SCH (09:48)
[2019-09-29] MEDS: cefTRIAXone 1,000 MG in Water for inj. (sterile) 10 ML IVP SCH (09:50)
[2019-09-29] MEDS: Apixaban 2.5 MG TABLET PO SCH (09:51)
[2019-09-29] MEDS: Aspirin Enteric Coated 81 MG Tablet PO SCH (09:51)
[2019-09-29] MEDS: CLEAR EYES NATURAL TEARS 15 ML BOTTLE BOTH EYES SCH ×2 (09:52→14:19)
[2019-09-29] MEDS: Insulin LISPRO 300 UNITS/3 ML VIAL SQ SCH ×2 (09:52→12:02)
[2019-09-29 10:49] VITALS: BP 130/70
[2019-09-29] MEDS ORDERED: Ertapenem 1,000 MG in 0.9 % Sodium Chloride Mini Bag 100 ML IVPB SCH (11:00)
[2019-09-30] MEDS ORDERED: Carbamide Peroxide 150 DROP/15 ML BOTTLE BOTH EARS SCH (09:00)
== END 2019-09-29 15:00 | DRG 536 ==
LOC: EMEROOARM 22:05 → 3NENU 22:05 → SUATTDRO 09-26 04:15
PROVIDERS: ADMIT Internal Medicine; ATTEND Internal Medicine